=== PATIENT | female | born 1975 | race Caucasian/White ===

== ENCOUNTER → 2017-08-07 | Outpatient (CLI) | payer MEDICARE, MEDICAID, SELFPAY | PROVIDERS: Visit Provider Nurse Practitioner Family | DX: M54.2 Cervicalgia (principal) | CPT/HCPCS: 76536 ==

== ENCOUNTER → 2017-08-25 13:19 | Outpatient (CLI) | payer MEDICARE, MEDICAID, SELFPAY ==
--- NOTE | 2017-08-25 13:23 | US_ITS ---
US transvaginal HISTORY: ITS.REASON: LLQ pain ORDERING PHYSICIAN: MALIK Ramos PATIENT AGE: 42 years COMPARISON: None FINDINGS: The uterus measures 8.5 x 4.6 x 5.7 cm with a combined endometrial thickness of 8 mm. There is a 1.8 cm area of increased echogenicity along the posterior aspect of the body the uterus consistent with a fibroid. The left ovary measures 4 x 2.9 cm with heterogeneous echogenicity. The right ovary is 2 x 1.8 cm. No obvious ovarian masses. There is bilateral ovarian blood flow No cul-de-sac fluid evident. IMPRESSION: 1. 1.8 cm fibroid. 2. Mildly enlarged left ovary.
== END ==
PROVIDERS: PCP Physician Assistant; Visit Provider Physician Assistant
DX: R10.9 Unspecified abdominal pain (principal)
CPT/HCPCS: 76830

== ENCOUNTER → 2017-09-04 08:50 | Outpatient (CLI) | payer MEDICARE, MEDICAID, SELFPAY ==
[2017-09-04 09:05] LABS: Microscopic, Urine URINE MICROSCOPIC (MICROSCOPIC)
[2017-09-04 10:02] LABS: Basophils # 0.1 K/mm3 (0-0.2); Basophils % 0.9 % (0.1-2.0); Eosinophils # 0.2 K/mm3 (0.0-0.4); Eosinophils % 4.4 % (0.1-12.0); Hemoglobin 13.8 g/dL (12.2-16.2); Lymphocytes # 3.3 K/mm3 (0.7-4.5); Lymphocytes % 59.7 K/mm3 (10-50); Mean Corpuscular HGB Conc 32.8 g/dL (31.8-35.4); Mean Corpuscular Hemoglobin 31.2 pg (27.0-31.2); Mean Corpuscular Volume 95.1 fl (81-99); Mean Platelet Volume 7.8 fl (7.4-10.4); Monocytes # 0.5 K/mm3 (0.1-1.0); Monocytes % 8.4 % (1.7-9.3); Neutrophils # 1.5 K/mm3 (1.8-7.8); Neutrophils % 26.5 % (37.0-80.0); Platelet Count 314 K/mm3 (142-424); Red Blood Count 4.42 M/mm3 (4.20-5.40); Red Cell Distribution Width 13.2 % (11.5-17.5); White Blood Count 5.5 K/mm3 (4.8-10.8)
[2017-09-04 10:54] LABS: MANUAL DIFFERENTIAL MANUAL DIFFERENTIAL (MANUAL DIFF)
[2017-09-04 11:14] LABS: Appearance,Urine CLOUDY (Clear); Bilirubin,Urine Negative (Negative); Blood, Urine 3+ (Negative); Glucose,Urine (UA) Negative (Negative); Ketones,Urine Negative (Negative); Leukocyte Esterase,Urine Negative (Negative); Nitrate,Urine POSITIVE (Negative); Protein,Urine 2+ (Negative); Specific Gravity, Urine >= 1.030 (1.005-1.030)
[2017-09-04 11:17] LABS: Color,Urine Dark Yellow (Yellow)
[2017-09-04 11:27] LABS: Alanine Aminotransferase 16 U/L (12-78); Albumin Level 3.4 gm/dL (3.4-5.0); Albumin/Globulin Ratio 1.1 (1.1-1.8); Alkaline Phosphatase 88 U/L (46-116); Anion Gap 13.2 mEq/L (5-15); Aspartate Amino Transferase 15 U/L (15-37); Bilirubin,Total 0.2 mg/dL (0.2-1.0); Blood Urea Nitrogen 7 mg/dL (7-18); Calcium 8.4 mg/dL (8.5-10.1); Carbon Dioxide 27 mmol/L (21.0-32.0); Chloride 106 mmol/L (98-107); Creatinine,Serum 0.64 mg/dL (0.55-1.02); Estimated Glomerular Filt Rate 102 ml/min (>60); GFR (African American) 124 ML/MIN (>60); Globulin 3.2 gm/dl (1.3-3.2); Glucose 96 mg/dL (74-106); Potassium 4.2 mmoL/L (3.5-5.1); Sodium 142 mmol/L (136-145); Total Protein,Serum 6.6 gm/dL (6.4-8.2)
[2017-09-04 11:28] LABS: HCG,Quantitative 0 mIU/mL
[2017-09-04 12:15] LABS: Bacteria,Urine 2+ /lpf; Calcium Oxalate Crystals,Urine 1+ /lpf; RBC,Urine TNTC #/hpf (0-3); WBC,Urine Occasional #/hpf (0-3)
[2017-09-04 12:41] LABS: Eosinophils % 6 % (0-3); Lymphocytes % 49 % (10-50); Monocytes % 9 % (2-9); Neutrophils % 36 % (42-76); Platelet Estimate Normal; RBC Morphology Normal; Total Cells Counted 100
== END ==
PROVIDERS: PCP Nurse Practitioner Family; Visit Provider Obstetrics & Gynecology
DX: Z01.812 Encounter for preprocedural laboratory examination (principal); R10.2 Pelvic and perineal pain
CPT/HCPCS: 36415; 80053; 81001; 84702; 85007; 85025; 87086; 87088; 87186

== ENCOUNTER 2017-09-08 06:10 | Inpatient (IN) | payer MEDICARE, MEDICAID, SELFPAY ==
[2017-09-07 14:52] VITALS: BMI 24.3
[2017-09-08] VITALS (30 sets, daily range): BP systolic 98–146; BP diastolic 54–87; PULSE 54–86; RESP 12–36; TEMP 36.2–43; O2SAT 83–100; BMI 24.3
--- NOTE | 2017-09-08 07:59 | SUR.OPER ---
Addendum entered by Haylee Prieto RN 09/08/17 08:16: 0816-3 LAP SPONGES REMOVED PER MD AT THIS TIME Original Note: Addendum entered by Haylee Prieto RN 09/08/17 08:15: 0815-1 LAP SPONGE INSERTED INTO ABDOMEN AT THIS TIME PER MD Original Note: 0736-2 LAP SPONGES INSERTED INTO ABDOMEN AT THIS TIME PER MD.
--- NOTE | 2017-09-08 08:47 | HMH.OPNOTE ---
Date of procedure: 09/08/17 Pre-op Diagnosis:: 1. Pelvic pain. 2. Leiomyomata uteri. 3. Left ovarian cyst. Post-op diagnosis:: other (1. Pelvic pain.2. Leiomyomata uteri.3. Left ovarian cyst (endometrioma).4. Extensive pelvic adhesions.) Procedure performed:: 1. Total abdominal hysterectomy. 2. Extensive pelvic adhesiolysis. 3. Left salpingo-oophorectomy. Surgeon:: Rory Hong MD Hardboard Coating Machine Operator(s):: MEMO Chowdhury AUTO PARTS MANAGER:: Parker Camacho Anesthesia: GETGerman Estimated blood loss (mL): 300 Operative findings:: 1. Extensive pelvic adhesions. 2. Leiomyomata uteri. 3. Endometriosis, with left endometrioma. 4. Normal right adnexa and normal appendix. Operative note:: After the patient was prepped and draped in usual fashion and general anesthesia was administered, a low Pfannenstiel incision was made through the previous incision, and the fat and fascia was in the usual fashion, bleeders being clamped and coagulated along the way. The peritoneum was entered with Metzenbaum scissors, and extended above and below. The bowel was packed away, and omental adhesions to the upper abdominal wall were taken down with sharp and blunt dissection. A self-retaining [place] retractor with bladder blade was placed. The uterus was distorted, and adherent to the left pelvic sidewall. The bladder was well advanced on the anterior aspect of the uterus and densely adherent there. The right tube and ovary appeared normal, as did the appendix, which was long and retrocecal and remains in situ. Left tube and ovary were adherent to the pelvic sidewall and antibiotic implants were noted in the left adnexal area and broad ligament. The left ovary contained what appeared to be an endometrioma. The decision was made to remove the uterus and left adnexa and leave the right adnexa in situ. The round ligament on either side was Elton clamped, cut, and Elton suture with #1 Vicryl. The bladder peritoneum was painstakingly dissected free from the anterior uterus and protected with a bladder blade. The ovarian pedicle on the right was crossclamped and cut, thus leaving the right adnexa in situ. This pedicle was Elton sutured, and then free tied with #1 Vicryl. On the left side, the ovarian and infundibulopelvic ligaments were crossclamped and cut, thus removing the left adnexa. This pedicle was Elton suture, and then free tied with #1 Vicryl. The uterine vessels, and the cardinal and uterosacral ligaments were individually, bilaterally, Elton clamped, cut, and Elton sutured with #1 Vicryl. The vagina was entered anteriorly with a knife, and the specimen was removed with Paul scissors. Gee clamps were used to tent up the vaginal cuff, which was closed with a running locked suture of #1 Vicryl. The pelvis was reperitonealized with a running unlocked suture of 2-0 Vicryl, thus burying all the pedicles. Irrigation was carried out, and then Gelfoam was placed against the back of the vaginal cuff for further hemostasis. The peritoneum was grasped with 3 Flory clamps, and closed with a running simple locked suture of 0 Vicryl. The muscle was approximated with a running unlocked suture of 0 Vicryl. The fascia was closed with a running locked suture of #1 Vicryl, but Surgicel was placed between the muscle and fascia for persistent oozing. The subcutaneous fat and Tram's fascia were closed with a running unlocked suture of 2-0 Vicryl. The skin was closed with skin christoph, and appropriately dressed. The urine was clear and the Kenny catheter. The sponge and needle counts correct. The estimated blood loss was 300 cc. The patient tolerated the procedure well, and was taken to PACU in excellent condition. She will be admitted postoperatively. Condition: stable Disposition: floor Specimens:: Uterus and left adnexa. Complications:: None
--- NOTE | 2017-09-08 08:50 | P.OP_ITS ---
Date of procedure: 09/08/17 Pre-op Diagnosis:: 1. Pelvic pain. 2. Leiomyomata uteri. 3. Left ovarian cyst. Post-op diagnosis:: other (1. Pelvic pain.2. Leiomyomata uteri.3. Left ovarian cyst (endometrioma).4. Extensive pelvic adhesions.) Procedure performed:: 1. Total abdominal hysterectomy. 2. Extensive pelvic adhesiolysis. 3. Left salpingo-oophorectomy. Surgeon:: Rory Hong MD Surfacer Operator(s):: MEMO Chowdhury SANDBLASTER SUPERVISOR:: Parker Camacho Anesthesia: GETGerman Estimated blood loss (mL): 300 Operative findings:: 1. Extensive pelvic adhesions. 2. Leiomyomata uteri. 3. Endometriosis, with left endometrioma. 4. Normal right adnexa and normal appendix. Operative note:: After the patient was prepped and draped in usual fashion and general anesthesia was administered, a low Pfannenstiel incision was made through the previous incision, and the fat and fascia was in the usual fashion, bleeders being clamped and coagulated along the way. The peritoneum was entered with Metzenbaum scissors, and extended above and below. The bowel was packed away, and omental adhesions to the upper abdominal wall were taken down with sharp and blunt dissection. A self-retaining [place] retractor with bladder blade was placed. The uterus was distorted, and adherent to the left pelvic sidewall. The bladder was well advanced on the anterior aspect of the uterus and densely adherent there. The right tube and ovary appeared normal, as did the appendix, which was long and retrocecal and remains in situ. Left tube and ovary were adherent to the pelvic sidewall and antibiotic implants were noted in the left adnexal area and broad ligament. The left ovary contained what appeared to be an endometrioma. The decision was made to remove the uterus and left adnexa and leave the right adnexa in situ. The round ligament on either side was Elton clamped, cut, and Elton suture with #1 Vicryl. The bladder peritoneum was painstakingly dissected free from the anterior uterus and protected with a bladder blade. The ovarian pedicle on the right was crossclamped and cut, thus leaving the right adnexa in situ. This pedicle was Elton sutured, and then free tied with #1 Vicryl. On the left side , the ovarian and infundibulopelvic ligaments were crossclamped and cut, thus removing the left adnexa. This pedicle was Elton suture, and then free tied with #1 Vicryl. The uterine vessels, and the cardinal and uterosacral ligaments were individually, bilaterally, Elton clamped, cut, and Elton sutured with #1 Vicryl. The vagina was entered anteriorly with a knife, and the specimen was removed with Paul scissors. Gee clamps were used to tent up the vaginal cuff, which was closed with a running locked suture of #1 Vicryl. The pelvis was reperitonealized with a running unlocked suture of 2-0 Vicryl, thus burying all the pedicles. Irrigation was carried out, and then Gelfoam was placed against the back of the vaginal cuff for further hemostasis. The peritoneum was grasped with 3 Flory clamps, and closed with a running simple locked suture of 0 Vicryl. The muscle was approximated with a running unlocked suture of 0 Vicryl. The fascia was closed with a running locked suture of #1 Vicryl, but Surgicel was placed between the muscle and fascia for persistent oozing. The subcutaneous fat and Tram's fascia were closed with a running unlocked suture of 2-0 Vicryl. The skin was closed with skin christoph, and appropriately dressed. The urine was clear and the Kenny catheter. The sponge and needle counts correct. The estimated blood loss was 300 cc. The patient tolerated the procedure well, and was taken to PACU in excellent condition. Sh
--- NOTE | 2017-09-08 08:55 | HMH.ANESCL ---
[facility] Anesthesia Checklist - Patient Identification Patient Identification: Arm Band - Structural Data Admitted From: Home Planned Operative Procedure/s: catie, lso Consent for Planned Operative Procedure(s) Verified: Yes Verified Documents: Surgical Consent, History and Physical - NPO Status Verified Time NPO: 00:00 - Additional verifications Anesthesia Reactions: No - Airway Assessment C-Spine Mobility Assessed: Yes (mp2) TMJ Mobility Assessed: Yes Dentition: Edentulous - Neurological Assessment Level of Consciousness: Awake, Alert - Anesthesia Plan Anesthesia Risk discussed: Yes Anesthesia Plan: Verified ASA Class: III Anesthesia Type: General [facility] Anesthesia HX Medical History: Reports:: Asthma, Chronic Obstructive Pulmonary Disease (COPD), Gastroesophageal Reflux Disease(GERD) Denies:: Cancer, Diabetes Mellitus Type 1, Diabetes Mellitus Type 2, Internal Pacemaker, MRSA, Seizures Other Medical History: Reports: Other. Denies: Blood Transfusion Reaction Comment: currently taking suboxone Laterality Cases: Bilateral: Tonsillectomy Other Surgeries: Yes: (x2). No: Pacemaker Amputation: No Fractures: No *Family Hx:: Coronary Artery Disease, Diabetes
--- NOTE | 2017-09-08 08:58 | P.PN_ITS ---
[facility] Anesthesia Record Part I Intake, IV Amount: 1,800 Estimated blood loss (mL): 300 Urine output (mL): 100 Blood Pressure: 135/71 SaO2: 99 Pulse Rate: 69 Respiratory Rate: 16 Temperature: 97.3 F Patient is:: Drowsy, Stable Stable to PACU at:: 08:55
--- NOTE | 2017-09-08 10:15 | PC.NURSE ---
PT ARRIVES TO UNIT, ROOM 280 FROM PACU; PT IS ANXIOUS AND UNCOOPERATIVE; KEEPS STATING OVER AND OVER HER BELLY HURTS; STATES PAIN IS 10/10 AND CAN'T STAND IT; KEEPS STATING SOMETHING IS WRONG; RN PERFORMS ASSESSMENT ON PT AT THIS TIME; SAFETY MEASURES IN PLACE; IV IS PATENT; VITAL SIGNS TAKEN AT THIS TIME
--- NOTE | 2017-09-08 10:25 | PC.NURSE ---
RN NOTIFIES DR SANCHEZ FOR PT'S STATUS-VITAL SIGNS, PAIN 10/10, UNCOOPERATIVE AND ANXIOUS; MD STATES TO GIVE PT 4 MG OF DILAUDID IV Q3H PRN NOW AND IF PT IS STILL UNCOMFORTABLE AND BP IS STABLE PT MAY HAVE VALIUM 2.5 MG PO Q6H PRN; ORDER REPEATED AND VERIFIED BY RN
--- NOTE | 2017-09-08 11:00 | PC.NURSE ---
PT COMPLAINING OF NAUSEA AT THIS TIME; RN X2 AT BEDSIDE; PHENERGAN GIVEN AT THIS TIME
--- NOTE | 2017-09-08 11:30 | PC.NURSE ---
PT IS SLEEPING AT THIS TIME; OFFERS NO COMPLAINTS; O2 INITIATED AT THIS TIME; SAFETY MEASURES IN PLACE
--- NOTE | 2017-09-08 11:31 | P.CONPHA_ITS ---
[facility] Pharmacy VTE Monitoring - Patient Demographics Admission date: 09/08/17 Report Date: 09/08/17 Time: 11:31 Allergies/Adverse Reactions: Patient Allergies ciprofloxacin [From CIPRO] Allergy (Unknown, Verified 09/07/17 14:38) ITCHING,VOMITING Sulfa (Sulfonamide Antibiotics) [SULFA (SULFONAMIDE ANTIBIOTICS)] Allergy ( Unknown, Verified 09/07/17 14:38) ITCHING Height: 1.55 m Weight: 58.513 kg - VTE Risk Clinical Trial Participant: No - Prophylaxis VTE Prophylaxis Ordered?: Yes Types of VTE Prophylaxis: IPCS Knee High
--- NOTE | 2017-09-08 12:00 | PC.NURSE ---
PT STILL SLEEPING AT THIS TIME; FAMILY IS AT BEDSIDE; PT OFFERS NO COMPLAINTS; O2 REMAINS IN PLACE; SAFETY MEARSURES IN PLACE AT THIS TIME
--- NOTE | 2017-09-08 12:18 | SUR.PHASEI ---
PT'S DSG REMAINED C/D/I THROUGHOUT HER PACU STAY. ALTHOUGH PAIN MEDS WERE GIVEN, I WAS UNABLE TO MEET HER PAIN NEEDS. PT'S F/C WAS DRAINED OF 50 ML CLEAR YELLOW URINE. DETAILED REPORT GIVEN TO MARTA HARRIS RN IN OB INCLUDING ALL MEDS GIVEN AND DSG CONDITION.
--- NOTE | 2017-09-08 13:25 | PC.NURSE ---
PT CALLS OUT AT THIS TIME ASKING FOR PAIN MEDICATION; RN TAKES SCHEDULED TORADOL TO PT AT THIS TIME
[2017-09-08 14:11] LABS: Microscopic,Cath URINE MICROSCOPIC (MICROSCOPIC)
--- NOTE | 2017-09-08 14:15 | PC.NURSE ---
UPON ENTERING ROOM TO GIVE PT SCHEDULED MEDICATION, PT PULLS ARM OUT FROM UNDER THE COVER AND TELLS RN TO LOOK AT HER IV; PT HAD DISLODGED IV-FLUIDS AND BLOOD ALL OVER PT AND HEAT PAD; RN CALLS FOR 2ND RN TO COME HELP CHANGE PT'S GOWN AND HEAT PAD; IV ATTEMPT SUCCESSFUL AFTER 3RD ATTEMPT; SAFETY MEASURES IN PLACE; NO OTHER NEEDS OR CONCERNS VOICED;
[2017-09-08 14:28] LABS: Appearance,Urine/Cath CLEAR (Clear); Bilirubin,Cath Negative (Negative); Blood, Urine/Cath 1+ (Negative); Color,Urine/Cath YELLOW (Yellow); Glucose,Urine/Cath (UA) Negative (Negative); Ketones,Urine/Cath Negative (Negative); Leukocyte Esterase,Cath Negative (Negative); Nitrate,Cath POSITIVE (Negative); PH,Urine/Cath 6.5 (5.0-8.5); Protein,Urine/Cath Negative (Negative); Specific Gravity, Urine/Cath 1.015 (1.005-1.030); Urobilinogen,Cath 0.2 EU/dl (0.2)
[2017-09-08 14:40] LABS: Bacteria,Urine/Cath 3+ /lpf; RBC,Urine/Cath Occasional # /hpf (0-3); Squamous Epithelial Ur./Cath 20-50 #/hpf (0-5)
--- NOTE | 2017-09-08 14:45 | PC.NURSE ---
RN CHECKS ON PT AT THIS TIME; PT'S PAIN IS UNDER CONTROL AND PT IS SLEEPING AT THIS TIME; FAMILY IS AT BEDSIDE; SAFETY MEASURES IN PLACE; CALL LIGHT WITHIN REACH
--- NOTE | 2017-09-08 15:00 | PC.NURSE ---
PT IS SLEEPING AT THIS TIME; ALESSANDRA CRAIN-MD WILL BE NOTIFIED; PT OFFERS NO COMPLAINTS AT THIS TIME; FAMILY IS AT BEDSIDE; SAFETY MEASURES IN PLACE
--- NOTE | 2017-09-08 15:08 | PC.NURSE ---
RN NOTIFIED DR SANCHEZ OF PT'S MOST RECENT TEMP-99.8 (AXILLARY); DR SANCHEZ GIVES ORDERS TO GIVE PT 1 GM ANCEF NOW AND ANOTHER DOSE IN 12 HOURS; ORDER REPEATED AND VERIFIED BY RN
--- NOTE | 2017-09-08 16:00 | PC.NURSE ---
PT STATES HER PAIN IS 10/10 AND SEE IS HAVING SOME NAUSEA AND REQUESTS MEDICATION; FAMILY IS AT BEDSIDE; SAFETY MEASURES IN PLACE; CALL LIGHT WITHIN REACH
--- NOTE | 2017-09-08 16:30 | PC.NURSE ---
RN ASKED PT IF SHE WOULD RATHER HAVE MEDICATION FOR NAUSEA OR PAIN AT THIS TIME; PT REQUESTS NAUSEA MEDICATION AT THIS TIME; NO OTHER CONCERNS VOICED; CALL LIGHT WITHIN REACH; FAMILY AT BEDSIDE
--- NOTE | 2017-09-08 17:00 | PC.NURSE ---
DR SANCHEZ IN UNIT MAKING ROUNDS AT THIS TIME; GAVE RN VERBAL ORDER TO HAVE LAB DRAW H/H-ORDER REPEATED AND VERIFIED BY RN; ORDER SUBMITTED TO LAB
--- NOTE | 2017-09-08 17:00 | HMH.ACPN2 ---
Internal Medicine - PN: Subj *Date: 09/08/17 *Time: 17:00 Interval history: This is day of surgery. The patient is afebrile. Vital signs are stable. She has had some difficulty with pain management, but this is somewhat better time. Her urine output is good. Her abdomen is soft. Surgery has been explained to the patient. Impression: Stable. Exam Vital signs and Labs for Last 24 Hours: Temp Pulse Resp BP Pulse Ox 99.8 F H 60 12 141/80 98 09/08/17 15:01 09/08/17 15:01 09/08/17 15:01 09/08/17 15:01 09/08/17 15:01 Laboratory Results - last 24 hr 09/08/17 07:15: Urine Color Yellow, Urine Appearance Clear, Urine pH 6.5, Ur Specific [place] 1.015, Urine Protein Negative, Urine Glucose (UA) Negative, Urine Ketones Negative, Urine Blood 1+, Urine Nitrate Positive, Urine Bilirubin Negative, Urine Urobilinogen 0.2, Ur Leukocyte Esterase Negative, Urine RBC Occasional, Urine WBC 5-10, Ur Squamous Epith Cells 20-50, Urine Bacteria 3+ A I & O for Last 24 hours: Intake & Output 09/06/17 09/07/17 09/08/17 09/09/17 11:59 11:59 11:59 11:59 Intake Total 1800 / 1800 Output Total 100 / 100 Balance 1700 / 1700 Weight 129 lb
--- NOTE | 2017-09-08 17:33 | PC.NURSE ---
PT RESTING QUIETLY IN BED. NO NEEDS VOICED. RESP EASY AND UNLABORED. CALL LIGHT IN REACH. S.O. AT BEDSIDE.
[2017-09-08 18:51] LABS: Hematocrit 38.7 % (37.0-47.0); Hemoglobin 12.5 g/dL (12.2-16.2)
--- NOTE | 2017-09-08 19:10 | PC.NURSE ---
REPORT GIVEN TO German VILLA RN
--- NOTE | 2017-09-08 19:10 | PC.NURSE ---
Report received from Cat Rodgers RN
--- NOTE | 2017-09-08 20:15 | PC.NURSE ---
Pt resting comfortably at this time easily awakened by verbal stimuli upon wakening pt begins to cry out in pt. abodminal tenderness noted to umbilicus and RLQ AND LLQ, abdomen not distended. Bowel sounds noted to all four quads pt not passing flatus at this time. scheduled torodol given at this time and pt repositioned to right side lying position and warm blanket given for abdomen. fluids encouraged, no other needs voiced at this time call light within reach pt encouraged to ring for assistance. pt verbalizes understanding will continue to monitor pain at this time
[2017-09-09] VITALS (10 sets, daily range): BP systolic 122–151; BP diastolic 70–76; PULSE 61–95; RESP 16–20; TEMP 36.6–37.3; O2SAT 96–100
--- NOTE | 2017-09-09 00:20 | PC.NURSE ---
Dr Hong notified at this time d/t pt very anxious pain medication not effective pt remains rating pain 10/10 on pain scale pt continues to cry out. new orders received for percocet 10 mg every 6 hours. phone orders repeated and verified
--- NOTE | 2017-09-09 01:17 | PC.NURSE ---
Pt continues to rate pain 10/10 on pain scale. pt very anxious crying out. pt encouraged to take some deep breaths and repositioned at this time to right side lying position. scheduled torodol and prn valium given for anxiety at this time. this nurse remained at bedside x 10 mins. family at bedside will continue to monitor at this time
--- NOTE | 2017-09-09 02:30 | PC.NURSE ---
Pt asleep at this time. resp equal and unlabored no distress noted at this time. will continue to monitor
--- NOTE | 2017-09-09 04:20 | PC.NURSE ---
Pt lying in bed with eyes closed. pt easily awakened by verbal stimuli upon awakening pt states her pain is 7/10 and begins crying out. heating pad applied to abdomen and pt repositioned. pt states pain some better. lungs clear to auscultate, heart rate regular, bowel sounds x 4 quads, nonproductive cough noted. no edema noted. pt appears more comfortable at this time, abdominal dressing intact with small amount of old drainage noted. vss at this time. pinon catheter removed at this time pt tolerated well. no distress noted at this time will continue to monitor
--- NOTE | 2017-09-09 07:13 | PC.NURSE ---
report given to Jose Alfredo Mckinley RN
--- NOTE | 2017-09-09 08:09 | P.PN_ITS ---
Internal Medicine - PN: Subj *Date: 09/09/17 *Time: 08:07 Interval history: This is postop day #1. The patient is running a low-grade temp of 99.2. Her lungs demonstrate rales and rhonchi and she is producing greenish sputum, which we are now sending for culture. Her wound is clean. The rest of her vital signs are normal. She is complaining of significant pain throughout her abdomen , but there is no CVA tenderness, and she has been up to void since her Kenny has been removed. There is no calf tenderness. Wound is clean. The plan is to get a chest x-ray and abdominal/pelvic CT scan this morning, and to switch her to IV Demerol for pain management. Exam Vital signs and Labs for Last 24 Hours: Temp Pulse Resp BP Pulse Ox 98.9 F 64 20 139/70 99 09/09/17 04:20 09/09/17 04:20 09/09/17 04:20 09/09/17 04:20 09/09/17 04:20 Laboratory Results - last 24 hr 09/08/17 07:15: Urine Color Yellow, Urine Appearance Clear, Urine pH 6.5, Ur Specific [place] 1.015, Urine Protein Negative, Urine Glucose (UA) Negative, Urine Ketones Negative, Urine Blood 1+, Urine Nitrate Positive, Urine Bilirubin Negative, Urine Urobilinogen 0.2, Ur Leukocyte Esterase Negative, Urine RBC Occasional, Urine WBC 5-10, Ur Squamous Epith Cells 20-50, Urine Bacteria 3+ A 09/08/17 18:44: Hgb 12.5, Hct 38.7 I & O for Last 24 hours: Intake & Output 09/06/17 09/07/17 09/08/17 09/09/17 11:59 11:59 11:59 11:59 Intake Total 1800 / 1800 Output Total 100 / 100 3700 / 3700 Balance 1700 / 1700 -3700 / -3700 Weight 129 lb Microbiology Reports for the Last 24 Hours: Microbiology 09/08/17 07:15 Urine,Catheterized Urine Culture - Preliminary Gram Negative Rods
--- NOTE | 2017-09-09 08:16 | CT_ITS ---
CT abdomen pelvis wo con CLINICAL INDICATION: Postoperative abdominal pain, recent hysterectomy ITS.REASON: ab pain post op ORDERING PHYSICIAN: Rory Hong MD PATIENT AGE: 42 years COMPARISON: None TECHNIQUE: Axial images obtained with sagittal and coronal reformats. PROCEDURE: Oral Contrast: None IV Contrast: None . FINDINGS: There are atelectatic changes in the right lung base. There is a pneumoperitoneum which is presumed to be postsurgical. The liver, spleen, pancreas and adrenal glands have an unremarkable unenhanced CT appearance. There is some increased density within the posterior aspect of the gallbladder which may be due to sludge.. There is minimal ectasia of both renal collecting systems which could be due to patient's hydration status. No obstructing ureteral calculi are evident. There is an air-fluid level present within the urinary bladder and may be due to recent catheterization. There are gas-filled loops of large and small bowel with a mild amount colonic feces in the colon. No definite obstruction. No evidence of appendicitis or diverticulitis. Small amount of free fluid in the pelvis with some heterogeneous density in the right adnexa containing some gas bubbles and could be related to postsurgical changes. There are postsurgical changes of the intra-abdominal wall with subcutaneous gas and skin clips. No acute bony anomalies. IMPRESSION: 1. Postsurgical changes from recent hysterectomy with pneumoperitoneum and postsurgical changes of the intra-abdominal wall. Small amount fluid density is present within the pelvis. No large hemoperitoneum. Interspersed gas and soft tissue density noted in the right adnexa consistent with surgical change. 2. Right lower lobe atelectasis. 3. Gas-filled small and large bowel which may be due to mild ileus with a mild amount retained colonic feces
--- NOTE | 2017-09-09 08:17 | XR_ITS ---
XR chest 2V HISTORY: ITS.REASON: productive cough ORDERING PHYSICIAN: Rory Hong MD PATIENT AGE: 42 years COMPARISON: None available FINDINGS: The cardiomediastinal silhouette and pulmonary vascularity are within normal limits. There are mild atelectatic changes in the right lung base medially. No lobar consolidation or collapse. No effusions. Pneumoperitoneum is present present to be postsurgical. No acute bony anomalies. IMPRESSION: 1. Mild right basilar atelectasis. 2. Pneumoperitoneum which is presumed postsurgical
[2017-09-09 09:09] LABS: Blood Urea Nitrogen 8 mg/dL (7-18); Creatinine Clearance Estimated 87 mL/min (0-300); Creatinine,Serum 0.79 mg/dL (0.55-1.02); Estimated Glomerular Filt Rate 80 ml/min (>60); GFR (African American) 97 ML/MIN (>60)
--- NOTE | 2017-09-09 10:55 | PC.NURSE ---
Spoke with ; reported CT, Xray noted air and gas; ok to advance to full liquid diet.
--- NOTE | 2017-09-09 18:18 | PC.NURSE ---
1800 pt requested to be off iv to walk around unit , went back in to check on pt not on unit, called [facility] supervisor reported pt off unit.
--- NOTE | 2017-09-09 18:23 | PC.NURSE ---
Shira and supervisor paint department found pt out from smoking, they brought her back in wheelchair, she reported her pain not bad now Instructed pt to stay on unit. Pt verbalized understanding
--- NOTE | 2017-09-09 19:05 | PC.NURSE ---
Report received from Jose Alfredo Mckinley RN
--- NOTE | 2017-09-09 19:35 | PC.NURSE ---
IV in Left hand infiltrated at this time, IV was removed with tip intact and skin covered with 2x2 and coban, pt tolerated well. New IV started to Right AC 22g x 2 attempts. arm board applied per pt request. pt tolerated IV insertion well. no distress noted at this time
[2017-09-10 05:19] VITALS: BP 124/80; PULSE 68; RESP 17; TEMP 36.6; O2SAT 96
--- NOTE | 2017-09-10 05:21 | PC.NURSE ---
Addendum entered by Valencia Hammond RN 09/10/17 05:25: late entry for 0420 Original Note: Pt sitting up in bed at this time. pt alert and oriented and able to make needs known. pt c/o pain 8/10 in abdomen more in RUQ, pt states she is not passing gas encouraged to ambulate pt states i will in a little while BS hyperactive x 4 quads, wheezing noted to RUL of lung otherwise clear pt encouraged to use incentive spirometer every hour when awake and cough when possible Pt can get IS to 750. abdominal dressing changed at this time no s/s or infection noted, christoph intact, new dressing applied of telfa and tegaderm, pt instructed on cleaning of incision and dressing change pt verbalized understanding. pt tolerated the dressing change well at this time. ice water provided per request. mo other needs voiced at this time will continue to monitor
--- NOTE | 2017-09-10 06:22 | PC.NURSE ---
Dr Hong at bedside at this time new orders received for soft diet at this time
--- NOTE | 2017-09-10 06:24 | HMH.ACPN2 ---
Internal Medicine - PN: Subj *Date: 09/10/17 *Time: 06:24 Interval history: This is postop day #2. The patient is afebrile. Her vital signs are stable. Wound clean. Abdomen soft. She is passing flatus. She is ambulating well. And her urine output is good. Plan is to advance her diet and transition to oral pain medication. Exam Vital signs and Labs for Last 24 Hours: Temp Pulse Resp BP Pulse Ox 97.9 F 68 17 124/80 96 09/10/17 05:19 09/10/17 05:19 09/10/17 05:19 09/10/17 05:19 09/10/17 05:19 Laboratory Results - last 24 hr 09/09/17 08:50: BUN 8, Creatinine 0.79, Estimated Creat Clear 87, Estimated GFR 80, Est GFR ( Amer) 97 I & O for Last 24 hours: Intake & Output 09/07/17 09/08/17 09/09/17 09/10/17 11:59 11:59 11:59 11:59 Intake Total 1800 / 1800 50 / 50 1200 / 1200 Output Total 100 / 100 3700 / 3700 Balance 1700 / 1700 -3650 / -3650 1200 / 1200 Weight 129 lb Microbiology Reports for the Last 24 Hours: Microbiology 09/08/17 07:15 Urine,Catheterized Urine Culture - Preliminary Gram Negative Rods 09/09/17 09:30 Sputum - Expectorated Sputum Gram Stain - Final
--- NOTE | 2017-09-10 06:29 | PC.NURSE ---
Pt ambulated in unit without difficulty at this time no distress noted
--- NOTE | 2017-09-10 07:02 | PC.NURSE ---
Report given to Doc Joseph RN
--- NOTE | 2017-09-10 07:10 | PC.NURSE ---
report received from césar radford rn
--- NOTE | 2017-09-10 08:10 | PC.NURSE ---
DR. SANCHEZ NOTIFIED OF E. COLI/ESBL + U/A CULTURE. ORDERS FOR CATH SPECIMEN. ORDERS TO CHANGE PAIN MEDS TO PO AT THIS TIME. PERCOCET 10/325MG PO Q 4 HOURS PRN MODERATE TO SEVERE PAIN AND CHANGE TORADOL 10 MG PO Q 6 HOURS SCHEDULED. R/V
[2017-09-10 08:15] VITALS: BP 128/62; PULSE 68; RESP 20; TEMP 36.4; O2SAT 97
[2017-09-10 09:02] LABS: Appearance,Urine CLEAR (Clear); Bilirubin,Urine Negative (Negative); Blood, Urine TRACE-L (Negative); Color,Urine YELLOW (Yellow); Glucose,Urine (UA) Negative (Negative); Ketones,Urine Negative (Negative); Leukocyte Esterase,Urine Negative (Negative); Microscopic, Urine URINE MICROSCOPIC (MICROSCOPIC); Nitrate,Urine Negative (Negative); Protein,Urine Negative (Negative); Specific Gravity, Urine <= 1.005 (1.005-1.030); Urobilinogen,Urine 0.2 EU/dl (0.2)
[2017-09-10 09:14] LABS: Bacteria,Urine 1+ /lpf; Mucus,Urine 1+ /lpf; RBC,Urine Occasional #/hpf (0-3); WBC,Urine Occasional #/hpf (0-3)
--- NOTE | 2017-09-10 09:15 | PC.NURSE ---
PT RESTING IN BED WITHOUT NEEDS OR CONCERNS AT THIS TIME. CALL LIGHT WITHIN REACH.
--- NOTE | 2017-09-10 10:49 | PC.NURSE ---
PT AMBULATING IN [place] WITHOUT DIFFICULTY AT THIS TIME
--- NOTE | 2017-09-10 11:30 | PC.NURSE ---
PT SITTING UP IN BED, REQUESTS SIMETHICONE FOR GAS DISCOMFORT, GIVEN. PT SITTING UP IN BED. CALL LIGHT WITHIN REACH. NO FURTHER NEEDS AT THIS TIME
[2017-09-10 12:15] VITALS: BP 133/56; PULSE 60; RESP 20; TEMP 36.6; O2SAT 98
--- NOTE | 2017-09-10 12:24 | PC.NURSE ---
SOFT DIET LUNCH TRAY SET-UP FOR PT, NO NEEDS AT THIS TIME
--- NOTE | 2017-09-10 13:10 | PC.NURSE ---
PT AMBULATING IN [place] WITHOUT DIFFICULTY. RETURNED TO BED. CALL LIGHT WITHIN REACH
--- NOTE | 2017-09-10 15:00 | PC.NURSE ---
PT AMBULATING IN [place] WITH VISITOR, LAUGHING. AMBULATING WELL, NO NEEDS OR CONCERNS VOICED
--- NOTE | 2017-09-10 15:25 | PC.NURSE ---
DR. SANCHEZ AT BEDSIDE TO SEE PT, NO NEW ORDERS
--- NOTE | 2017-09-10 15:29 | HMH.ACPN2 ---
Internal Medicine - PN: Subj *Date: 09/10/17 *Time: 15:29 Interval history: Patient is afebrile. Her vital signs are stable. She is eating and ambulating well. Passing minimal amount of flatus. She still having some gas pains. Her urine culture came back E. coli, but sensitive to the Ancef that she had been on. We have sent off a follow-up culture. Impression: Stable. Exam Vital signs and Labs for Last 24 Hours: Temp Pulse Resp BP Pulse Ox 97.8 F 60 20 133/56 98 09/10/17 12:15 09/10/17 12:15 09/10/17 12:15 09/10/17 12:15 09/10/17 12:15 Laboratory Results - last 24 hr 09/10/17 08:45: Urine Color Yellow, Urine Appearance Clear, Urine pH 7.0, Ur Specific [place] <= 1.005, Urine Protein Negative, Urine Glucose (UA) Negative, Urine Ketones Negative, Urine Blood Trace-l, Urine Nitrate Negative, Urine Bilirubin Negative, Urine Urobilinogen 0.2, Ur Leukocyte Esterase Negative, Urine RBC Occasional, Urine WBC Occasional, Ur Squamous Epith Cells 5-10, Urine Bacteria 1+, Urine Mucus 1+ I & O for Last 24 hours: Intake & Output 09/08/17 09/09/17 09/10/17 09/11/17 11:59 11:59 11:59 11:59 Intake Total 1800 / 1800 50 / 50 1440 / 1440 Output Total 100 / 100 3700 / 3700 Balance 1700 / 1700 -3650 / -3650 1440 / 1440 Weight 129 lb Microbiology Reports for the Last 24 Hours: Microbiology 09/09/17 09:30 Sputum - Expectorated Sputum Gram Stain - Final 09/08/17 07:15 Urine,Catheterized Urine Culture - Final Escherichia coli
[2017-09-10 16:00] VITALS: BP 136/76; PULSE 62; RESP 20; TEMP 37.1; O2SAT 99
--- NOTE | 2017-09-10 16:05 | PC.NURSE ---
PT HAS RESTED WELL THIS SHIFT, AMBULATED IN [place] WITHOUT DIFFICULTY. SKIN W/D/I. LTV INCISION C/D/I. NO VAGINAL BLEEDING. VITAL SIGNS STABLE, AFEBRILE. NO EDEMA. LUNGS SOUNDS WITH WHEEZES THROUGHOUT. NO CHANGE SINCE AM ASSESSMENT. REINFORCED USING INCENTIVE SPIROMETER. V/U AND DOES SO AT ABOUT 750-1000. IV SITE. PT PASSING FLATUS AND VOIDING WITHOUT DIFFICULTY
--- NOTE | 2017-09-10 17:00 | PC.NURSE ---
PT UP TO SHOWER, TOLERATED WELL. GOWN AND LINENS CHANGED. PT WITHOUT NEEDS OR CONCERNS
--- NOTE | 2017-09-10 18:32 | PC.NURSE ---
PT RESTING IN BED WATCHING TV, CALL LIGHT WITHIN REACH. NO NEEDS OR CONCERNS
--- NOTE | 2017-09-10 18:57 | PC.NURSE ---
REPORT GIVEN TO Negra SAWANT RN
--- NOTE | 2017-09-10 19:20 | PC.NURSE ---
REPORT RECEIVED FROM BRYSON STOLL.
--- NOTE | 2017-09-10 20:30 | PC.NURSE ---
PT AMBULATING IN HALLWAY THIS TIME WITH STANDBY ASSIST X1. NO PROBLEMS NOTED WITH AMBULATION.
--- NOTE | 2017-09-10 21:15 | PC.NURSE ---
MEDICATED WITH PERCOCET 10/325 PO PER REQUEST FOR PAIN 8/10 ON PAIN SCALE.
[2017-09-10 21:27] VITALS: RESP 20; O2SAT 96
--- NOTE | 2017-09-10 21:45 | PC.NURSE ---
PT REPORTS RELIEF AFTER TAKING PERCOCET FOR PAIN. RATES PAIN AT 4 OR 5 AT THIS TIME. INSTRUCTED PT TO NOTIFY NURSE IF PAIN CONTROL DOES NOT CONTINUE TO IMPROVE. VERBALIZED UNDERSTANDING.
[2017-09-10 21:49] VITALS: BP 145/74; PULSE 56; RESP 20; TEMP 36.9
--- NOTE | 2017-09-10 22:10 | PC.NURSE ---
SCHEDULED TORADOL 10MG PO GIVEN FOR PAIN. AT THIS TIME, PT RATES PAIN AT 4/10 ON PAIN SCALE.
--- NOTE | 2017-09-11 03:20 | PC.NURSE ---
MEDICATED WITH PERCOCET 10/325 MG PO FOR PAIN 8/10 ON PAIN SCALE AND SIMETHICONE 160MG PO FOR GAS PER REQUEST.
[2017-09-11 03:37] VITALS: BP 122/68; PULSE 18; PULSE 68; RESP 18; TEMP 36.7
--- NOTE | 2017-09-11 03:40 | PC.NURSE ---
PT HAS RESTED WELL THROUGHOUT THE NIGHT. SIG OTHER HAS REMAINED AT BS ATTENTIVE TO PT'S NEEDS. AMBULATING IN ROOM AND HALLWAY WITHOUT DIFFICULTY. VOIDING FREELY / WELL. HAS HAD BM X1. +FLATUS. TOLERATING SOFT DIET PO's WELL. LUNGS WHEEZY BILAT AND THROUGHOUT R/T HEAVY SMOKING..USES INHALERS PRN AT HOME. NORMALLY TAKES SUBUTEX 8MG PO BID AT HOME DAILY. HAS HAD SUFFICIENT PAIN CONTROL WITH PERCOCET 10/325 PO Q 6HRS PRN AND TORADOL 10MG PO Q6HRS SCHEDULED. LTV INCISION DRESSING REMAINS CLEAN, DRY AND INTACT. ORALLY INSTRUCTED PT ON CARE OF INCISION ONCED DISCHARGED. VERBALIZED UNDERSTANDING. ALSO REINFORCED IMPORTANCE OF USING INCENTIVE SPIROMETER, DARLING SINCE SHE IS A HEAVY SMOKER. PT VERBALIZED UNDERSTANDING WELL. PLANS TO BE DISCHARGED HOME LATER TODAY WITH SCHEDULED FOLLOW APPOINTMENT IN OFFICE.
--- NOTE | 2017-09-11 04:07 | PC.NURSE ---
PT REPORTS PAIN RELIEF FROM PERCOCET 10/. NOW RATES PAIN AT 4/10 ON PAIN SCALE.
--- NOTE | 2017-09-11 05:41 | PC.NURSE ---
MEDICATED WITH SCHEDULED TORADOL 10MG PO... PT WAS ASLEEP UPON ENTERING ROOM. DENIES ANY NEEDS AT THIS TIME.
--- NOTE | 2017-09-11 06:18 | HMH.ACPN2 ---
Internal Medicine - PN: Subj *Date: 09/11/17 *Time: 06:18 Interval history: This is postop day #3. The patient is afebrile. Vital signs stable. Wound clean. Abdomen soft. She is eating and ambulating, and has had a bowel movement. Her follow-up urinary culture is still pending. She will be discharged today. Exam Vital signs and Labs for Last 24 Hours: Temp Pulse Resp BP Pulse Ox 98.0 F 18 L 18 122/68 96 09/11/17 03:37 09/11/17 03:37 09/11/17 03:37 09/11/17 03:37 09/10/17 21:27 Laboratory Results - last 24 hr 09/10/17 08:45: Urine Color Yellow, Urine Appearance Clear, Urine pH 7.0, Ur Specific [place] <= 1.005, Urine Protein Negative, Urine Glucose (UA) Negative, Urine Ketones Negative, Urine Blood Trace-l, Urine Nitrate Negative, Urine Bilirubin Negative, Urine Urobilinogen 0.2, Ur Leukocyte Esterase Negative, Urine RBC Occasional, Urine WBC Occasional, Ur Squamous Epith Cells 5-10, Urine Bacteria 1+, Urine Mucus 1+ I & O for Last 24 hours: Intake & Output 09/08/17 09/09/17 09/10/17 09/11/17 11:59 11:59 11:59 11:59 Intake Total 1800 / 1800 50 / 50 1440 / 1440 Output Total 100 / 100 3700 / 3700 Balance 1700 / 1700 -3650 / -3650 1440 / 1440 Weight 129 lb Microbiology Reports for the Last 24 Hours: Microbiology 09/09/17 09:30 Sputum - Expectorated Sputum Gram Stain - Final 09/08/17 07:15 Urine,Catheterized Urine Culture - Final Escherichia coli
--- NOTE | 2017-09-11 06:21 | PC.NURSE ---
DR. SANCHEZ AT TO SEE. PT. REVIEWING URINE CULTURE RESULTS/ ORDERS. V/O RECEIVED TO NOT AWAIT RESULTS OF 2ND URINE CULTURE THAT WAS ORDERED ON 09/10/17.... ORDER REPEATED AND VERIFIED.
--- NOTE | 2017-09-11 06:22 | HMH.DCSUM ---
General - General Admission date: 09/08/17 Discharge date: 09/11/17 (This 42-year-old white female was admitted for definitive treatment of pelvic pain, dysfunctional uterine bleeding, leiomyomata uteri, and a left adnexal mass. On the date of admission, she was taken to the operating room, where she underwent a total abdominal hysterectomy and left salpingo-oophorectomy, with extensive adhesiolysis. Her urine culture showed E. coli, and she was treated with intravenous antibiotics. A follow-up culture report is pending. She had some initial issues with pain management that seems to be under control now. She is eating and ambulating, and has had a bowel movement. Her hemoglobin is 12.5 g. She is a smoker, but refuses smoking cessation patches. She is discharged home on the third postoperative day on Percocet 7.5/325 (#30), 1 p.o. every 6 hours as needed pain. She is given appropriate instructions as to diet, exercise, and wound care (her christoph have been removed and replaced with Steri-Strips), and she is to return to the office 2 weeks.) Objective Vital signs: Temp Pulse Resp BP Pulse Ox 98.0 F 18 L 18 122/68 96 09/11/17 03:37 09/11/17 03:37 09/11/17 03:37 09/11/17 03:37 09/10/17 21:27 Results Labs on day of discharge: Labs from last 24 hours 09/10/17 08:45 Urine Color Yellow Urine Appearance Clear Urine pH 7.0 Ur Specific [place] <= 1.005 Urine Protein Negative Urine Glucose (UA) Negative Urine Ketones Negative Urine Blood Trace-l Urine Nitrate Negative Urine Bilirubin Negative Urine Urobilinogen 0.2 Ur Leukocyte Esterase Negative Urine RBC Occasional Urine WBC Occasional Ur Squamous Epith Cells 5-10 Urine Bacteria 1+ Urine Mucus 1+ Meds Home Medications Medication Instructions Recorded Confirmed Type albuterol sulfate 2.5 mg/3 mL 2.5 mg INHALATION QID PRN ml 08/25/17 09/08/17 History (0.083 %) solution for nebulization buprenorphine 8 mg-naloxone 2 mg 1 tab SUBLINGUAL BID tab 08/25/17 09/08/17 History sublingual tablet Gabapentin [Neurontin 800mg Tab] 800 mg PO TID 09/07/17 09/08/17 History Allergies Allergy/AdvReac Type Severity Reaction Status Date / Time ciprofloxacin [From CIPRO] Allergy Unknown ITCHING,VOM Verified 09/07/17 14:38 ITING Sulfa (Sulfonamide Allergy Unknown ITCHING Verified 09/07/17 14:38 Antibiotics) [SULFA (SULFONAMIDE ANTIBIOTICS)] Discharge Plan - Patient Discharge Instructions - Follow up Plan Home Medications: Home Medications Medication Instructions Recorded Confirmed Type albuterol sulfate 2.5 mg/3 mL 2.5 mg INHALATION QID PRN ml 08/25/17 09/08/17 History (0.083 %) solution for nebulization buprenorphine 8 mg-naloxone 2 mg 1 tab SUBLINGUAL BID tab 08/25/17 09/08/17 History sublingual tablet Gabapentin [Neurontin 800mg Tab] 800 mg PO TID 09/07/17 09/08/17 History Prescriptions/Medication Reconciliation: No Action albuterol sulfate 2.5 mg/3 mL (0.083 %) solution for nebulization 2.5 mg INHALATION QID PRN ml PRN Reason: breathing buprenorphine 8 mg-naloxone 2 mg sublingual tablet 1 tab SUBLINGUAL BID tab Gabapentin [Neurontin 800mg Tab] 800 mg PO TID
--- NOTE | 2017-09-11 06:54 | PC.NURSE ---
REPORT GIVEN TO BRYSON TSE.
--- NOTE | 2017-09-11 07:00 | PC.NURSE ---
RECEIVED REPORT FROM Surendra SAWANT RN
[2017-09-11 07:21] VITALS: BP 114/62; PULSE 64; RESP 20; TEMP 36.7; O2SAT 95
--- NOTE | 2017-09-11 07:58 | PC.NURSE ---
DR SANCHEZ CALLED HOME [facility]. STATED FOR PT TO CONTINUE TO TAKE ALBUTEROL SULFATE 2.5MG INHALATION QID PRN NEEDED. BUPRENORPHINE 8MG 1 TABLET SUBLINGUAL BID, AND NEURONTIN 800MG PO TID. R/V
--- NOTE | 2017-09-11 08:00 | PC.NURSE ---
PT HAS A LOW TRANSVERSE INCISION WITH MARISOL INTACT. INCISION WELL APPROXIMATED WITH MARISOL INTACT. INCISION CLEANED WITH 1/2 STERILE WATER AND 1/2 PEROXIDE. MARISOL REMOVED AND STERI STRIPS APPLIED. PT TOLERATED WELL. PT EDUCATED ON SURGICAL SITE INFECTIONS. PT V/U.
== END 2017-09-11 08:30 | disposition home or self-care (01) | DRG 743 ==
LOC: 2ND 06:14 → OB 08:55
PROVIDERS: Admitting Provider Obstetrics & Gynecology; PCP Nurse Practitioner Family; Visit Provider Obstetrics & Gynecology
PROC: 0UT90ZZ Resection of Uterus, Open Approach (ICD-10-PCS; CPT 58150; principal; 2017-09-08 07:30)
DX: N93.8 Other specified abnormal uterine and vaginal bleeding (principal); D25.9 Leiomyoma of uterus, unspecified; R10.2 Pelvic and perineal pain; N83.202 Unspecified ovarian cyst, left side
CPT/HCPCS: 58150; 36415; 71046; 74176; 81001; 82565; 84520; 85014; 85018; 87070; 87086; 87088; 87186; 87205; 88307; 94640; 96372; 96374; J0131; J2405

== ENCOUNTER → 2017-10-07 14:55 | Outpatient (REF) | payer MEDICARE, MEDICAID, SELFPAY ==
[2017-10-07 19:25] LABS: Amphetamine/Metha Screen,Urine Negative ng/mL (<1000); Barbiturates Screen,Urine Negative ng/mL (<200); Benzodiazepines Screen,Urine Negative ng/mL (200); Cannabinoid Screen,Urine Negative ng/mL (<50); Cocaine Screen,Urine Negative ng/g (<300); Methadone Screen,Urine Negative ng/mL (<300); Opiate Screen,Urine Negative ng/mL (<300); Phencyclidine Screen,Urine Negative ng/mL (<25)
== END ==
LOC: LAB 14:55
PROVIDERS: Visit Provider Nurse Practitioner Family
DX: Z79.899 Other long term (current) drug therapy (principal)
CPT/HCPCS: 80305

== ENCOUNTER → 2017-10-12 16:35 | Outpatient (REF) | payer MEDICARE, MEDICAID, SELFPAY | LOC: LAB 16:35 | PROVIDERS: Visit Provider Obstetrics & Gynecology | DX: Z48.89 Encounter for other specified surgical aftercare (principal) | CPT/HCPCS: 87070; 87077; 87186; 87205 ==

== ENCOUNTER → 2017-10-28 17:37 | Outpatient (CLI) | payer MEDICARE, MEDICAID, SELFPAY ==
[2017-10-28 18:56] LABS: Alanine Aminotransferase 17 U/L (12-78); Albumin Level 3.9 gm/dL (3.4-5.0); Albumin/Globulin Ratio 0.8 (1.1-1.8); Alkaline Phosphatase 111 U/L (46-116); Anion Gap 10.9 mEq/L (5-15); Aspartate Amino Transferase 15 U/L (15-37); Bilirubin,Total 0.1 mg/dL (0.2-1.0); Blood Urea Nitrogen 6 mg/dL (7-18); C-Reactive Protein 1.4 mg/L (0.0-0.9); Carbon Dioxide 30 mmol/L (21.0-32.0); Chloride 104 mmol/L (98-107); Creatinine,Serum 0.75 mg/dL (0.55-1.02); Estimated Glomerular Filt Rate 85 ml/min (>60); Free T4 (Free Thyroxine) 1.19 ng/dl (0.76-1.46); GFR (African American) 103 ML/MIN (>60); Globulin 4.7 gm/dl (1.3-3.2); Glucose 112 mg/dL (74-106); Potassium 3.9 mmoL/L (3.5-5.1); Sodium 141 mmol/L (136-145); Thyroid Stimulating Hormone 1.04 uIU/ml (0.358-3.740); Total Protein,Serum 8.6 gm/dL (6.4-8.2)
[2017-10-28 19:07] LABS: Monoscreen (Rapid) Negative (Negative)
[2017-10-28 20:34] LABS: Basophils % 0.7 % (0.1-2.0); Eosinophils # 0.1 K/mm3 (0.0-0.4); Eosinophils % 1.8 % (0.1-12.0); Hematocrit 47.6 % (37.0-47.0); Hemoglobin 15.6 g/dL (12.2-16.2); Lymphocytes # 2.6 K/mm3 (0.7-4.5); Lymphocytes % 57.4 K/mm3 (10-50); Mean Corpuscular HGB Conc 32.7 g/dL (31.8-35.4); Mean Corpuscular Volume 94.8 fl (81-99); Mean Platelet Volume 8.2 fl (7.4-10.4); Monocytes # 0.3 K/mm3 (0.1-1.0); Monocytes % 6.5 % (1.7-9.3); Neutrophils # 1.5 K/mm3 (1.8-7.8); Neutrophils % 33.5 % (37.0-80.0); Platelet Count 353 K/mm3 (142-424); Red Blood Count 5.02 M/mm3 (4.20-5.40); Red Cell Distribution Width 13.1 % (11.5-17.5); White Blood Count 4.5 K/mm3 (4.8-10.8)
[2017-10-28 20:35] LABS: MANUAL DIFFERENTIAL MANUAL DIFFERENTIAL (MANUAL DIFF)
[2017-10-28 23:09] LABS: Anisocytosis 1+; Eosinophils % 2 % (0-3); Lymphocytes % 56 % (10-50); Monocytes % 1 % (2-9); Neutrophils % 41 % (42-76); Platelet Estimate Normal; Total Cells Counted 100
== END ==
PROVIDERS: PCP Nurse Practitioner Family; Visit Provider Nurse Practitioner Family
DX: R53.83 Other fatigue (principal); R05 Cough
CPT/HCPCS: 36415; 80053; 84439; 84443; 85007; 85025; 86140; 86318

== ENCOUNTER → 2017-11-12 15:38 | Outpatient (CLI) | payer MEDICARE, MEDICAID, SELFPAY ==
[2017-11-12 16:00] LABS: Basophils % 0.3 % (0.1-2.0); Eosinophils # 0.1 K/mm3 (0.0-0.4); Eosinophils % 1.7 % (0.1-12.0); Hematocrit 46.2 % (37.0-47.0); Hemoglobin 14.8 g/dL (12.2-16.2); Lymphocytes # 3.3 K/mm3 (0.7-4.5); Lymphocytes % 46.5 K/mm3 (10-50); Mean Corpuscular Hemoglobin 30.6 pg (27.0-31.2); Mean Corpuscular Volume 95.4 fl (81-99); Mean Platelet Volume 7.6 fl (7.4-10.4); Monocytes # 0.4 K/mm3 (0.1-1.0); Monocytes % 5.7 % (1.7-9.3); Neutrophils # 3.3 K/mm3 (1.8-7.8); Neutrophils % 45.8 % (37.0-80.0); Platelet Count 390 K/mm3 (142-424); Red Blood Count 4.84 M/mm3 (4.20-5.40); Red Cell Distribution Width 13.7 % (11.5-17.5); White Blood Count 7.2 K/mm3 (4.8-10.8)
== END ==
PROVIDERS: Visit Provider Nurse Practitioner Family
DX: D72.819 Decreased white blood cell count, unspecified (principal)
CPT/HCPCS: 36415; 85025

== ENCOUNTER → 2018-01-29 09:57 | Outpatient (CLI) | payer MEDICARE, MEDICAID, SELFPAY ==
[2018-01-29 13:51] LABS: Amphetamine/Metha Screen,Urine Negative ng/mL (<1000); Barbiturates Screen,Urine Negative ng/mL (<200); Benzodiazepines Screen,Urine Negative ng/mL (200); Cannabinoid Screen,Urine Negative ng/mL (<50); Cocaine Screen,Urine Negative ng/g (<300); Methadone Screen,Urine Negative ng/mL (<300); Opiate Screen,Urine Negative ng/mL (<300); Phencyclidine Screen,Urine Negative ng/mL (<25)
== END ==
PROVIDERS: Visit Provider Nurse Practitioner Family
DX: Z79.899 Other long term (current) drug therapy (principal)
CPT/HCPCS: 80305

== ENCOUNTER → 2018-03-25 13:23 | Outpatient (REF) | payer MEDICARE, MEDICAID, SELFPAY ==
[2018-03-25 20:45] LABS: Amphetamine/Metha Screen,Urine Negative ng/mL (<1000); Barbiturates Screen,Urine Negative ng/mL (<200); Benzodiazepines Screen,Urine Negative ng/mL (<200); Cannabinoid Screen,Urine Negative ng/mL (<50); Cocaine Screen,Urine Negative ng/mL (<300); Methadone Screen,Urine Negative ng/mL (<300); Opiate Screen,Urine Negative ng/mL (<300); Phencyclidine Screen,Urine Negative ng/mL (<25)
== END ==
LOC: LAB 13:23
PROVIDERS: Visit Provider Nurse Practitioner Family
DX: Z79.899 Other long term (current) drug therapy (principal)
CPT/HCPCS: 80305

== ENCOUNTER → 2018-05-07 09:38 | Outpatient (CLI) | payer MEDICARE, MEDICAID, SELFPAY ==
--- NOTE | 2018-05-07 10:15 | US_ITS ---
US gallbladder HISTORY: Right upper quadrant pain with nausea ITS.REASON: rt upper quad pain ORDERING PHYSICIAN: Marcelle Padilla PATIENT AGE: 43 years Comparison: None FINDINGS: PANCREAS: Unremarkable. No obvious mass or abnormal fluid collection. No ductal dilatation LIVER: No focal liver lesions demonstrated. Homogeneous echogenicity. No intrahepatic biliary ductal dilatation evident RIGHT KIDNEY: Unremarkable. Normal size and echogenicity. No hydronephrosis GALLBLADDER: No gallstones, gallbladder wall thickening, pericholecystic fluid, or biliary dilatation. IMPRESSION: Negative gallbladder/right upper quadrant ultrasound
== END ==
PROVIDERS: PCP Nurse Practitioner Family; Visit Provider Nurse Practitioner Family
DX: R10.11 Right upper quadrant pain (principal)
CPT/HCPCS: 76705

== ENCOUNTER → 2018-05-25 13:20 | Outpatient (REF) | payer MEDICARE, MEDICAID, SELFPAY ==
[2018-05-26 13:08] LABS: Amphetamine/Metha Screen,Urine Negative ng/mL (<1000); Barbiturates Screen,Urine Negative ng/mL (<200); Benzodiazepines Screen,Urine Negative ng/mL (<200); Cannabinoid Screen,Urine Negative ng/mL (<50); Cocaine Screen,Urine Negative ng/mL (<300); Methadone Screen,Urine Negative ng/mL (<300); Opiate Screen,Urine Negative ng/mL (<300); Phencyclidine Screen,Urine Negative ng/mL (<25)
== END ==
LOC: LAB 13:20
PROVIDERS: Visit Provider Nurse Practitioner Family
DX: Z79.899 Other long term (current) drug therapy (principal)
CPT/HCPCS: 80305

== ENCOUNTER → 2018-07-22 16:44 | Outpatient (CLI) | payer MEDICARE, MEDICAID, SELFPAY ==
[2018-07-22 19:44] LABS: Amphetamine/Metha Screen,Urine Negative ng/mL (<1000); Barbiturates Screen,Urine Negative ng/mL (<200); Benzodiazepines Screen,Urine Negative ng/mL (<200); Cannabinoid Screen,Urine Negative ng/mL (<50); Cocaine Screen,Urine Negative ng/mL (<300); Methadone Screen,Urine Negative ng/mL (<300); Opiate Screen,Urine Negative ng/mL (<300); Phencyclidine Screen,Urine Negative ng/mL (<25)
== END ==
PROVIDERS: Visit Provider Nurse Practitioner Family
DX: Z79.899 Other long term (current) drug therapy (principal)
CPT/HCPCS: 80305

== ENCOUNTER → 2018-10-07 13:22 | Outpatient (CLI) | payer MEDICARE, SELFPAY ==
[2018-10-07 15:39] LABS: Amphetamine/Metha Screen,Urine Negative ng/mL (<1000); Barbiturates Screen,Urine Negative ng/mL (<200); Benzodiazepines Screen,Urine Negative ng/mL (<200); Cannabinoid Screen,Urine Negative ng/mL (<50); Cocaine Screen,Urine Negative ng/mL (<300); Methadone Screen,Urine Negative ng/mL (<300); Opiate Screen,Urine Negative ng/mL (<300); Phencyclidine Screen,Urine Negative ng/mL (<25)
== END ==
PROVIDERS: Visit Provider Nurse Practitioner Family
DX: Z79.899 Other long term (current) drug therapy (principal)
CPT/HCPCS: 80305

== ENCOUNTER → 2019-03-25 11:08 | Outpatient (CLI) | payer MEDICARE, MEDICAID, SELFPAY ==
--- NOTE | 2019-03-25 11:14 | XR_ITS ---
PROCEDURE: XR ELBOW RT 2V CLINICAL INDICATION: pain COMPARISON: No exams were available for comparison FINDINGS: No fracture, dislocation, lytic change, or blastic change evident. No significant degenerative change. No displaced fat pad IMPRESSION: Negative right elbow Dictated by: Ivan Friedman MD 03/25/2019 11:36 Signed by: <Electronically signed by Ivan Friedman MD in [place]> 03/25/2019 11:36
--- NOTE | 2019-03-25 11:14 | XR_ITS ---
PROCEDURE: XR LUMBAR SPINE 2-3V CLINICAL INDICATION: back pain Low back pain COMPARISON: No exams were available for comparison FINDINGS: There is normal alignment. No fracture or dislocation. No lytic or blastic change. There is degenerate disc disease at L5-S1 with facet arthritic changes at that level. IMPRESSION: Degenerate disc disease and facet arthritic change at L5-S1 Dictated by: Ivan Friedman MD 03/25/2019 11:38 Signed by: <Electronically signed by Ivan Friedman MD in [place]> 03/25/2019 11:38
== END ==
PROVIDERS: PCP Nurse Practitioner Family; Visit Provider Nurse Practitioner Family
DX: G89.29 Other chronic pain (principal); M54.9 Dorsalgia, unspecified; M25.521 Pain in right elbow
CPT/HCPCS: 72100; 73070

== ENCOUNTER → 2019-03-25 16:54 | Outpatient (CLI) | payer MEDICARE, MEDICAID, SELFPAY ==
[2019-03-25 18:52] LABS: Amphetamine/Metha Screen,Urine Negative ng/mL (<1000); Barbiturates Screen,Urine Negative ng/mL (<200); Benzodiazepines Screen,Urine Negative ng/mL (<200); Cannabinoid Screen,Urine Negative ng/mL (<50); Cocaine Screen,Urine Negative ng/mL (<300); Methadone Screen,Urine Negative ng/mL (<300); Opiate Screen,Urine Negative ng/mL (<300); Phencyclidine Screen,Urine Negative ng/mL (<25)
== END ==
PROVIDERS: Visit Provider Nurse Practitioner Family
DX: Z79.899 Other long term (current) drug therapy (principal)
CPT/HCPCS: 72100; 73070; 80305

== ENCOUNTER → 2019-09-01 14:53 | Outpatient (CLI) | payer MEDICARE, MEDICAID, SELFPAY ==
[2019-09-01 15:36] LABS: Amphetamine/Metha Screen,Urine Negative ng/mL (<1000); Barbiturates Screen,Urine Negative ng/mL (<200); Benzodiazepines Screen,Urine Negative ng/mL (<200); Cannabinoid Screen,Urine Negative ng/mL (<50); Cocaine Screen,Urine Negative ng/mL (<300); Methadone Screen,Urine Negative ng/mL (<300); Opiate Screen,Urine Negative ng/mL (<300); Phencyclidine Screen,Urine Negative ng/mL (<25)
== END ==
PROVIDERS: Visit Provider Nurse Practitioner Family
DX: R30.0 Dysuria (principal); M54.2 Cervicalgia
CPT/HCPCS: 80305; 87086; 87088; 87186

== ENCOUNTER → 2020-01-26 14:05 | Outpatient (CLI) | payer MEDICARE, MEDICAID, SELFPAY ==
[2020-01-26 14:53] LABS: Basophils % 0.6 % (0.1-2.0); Eosinophils # 0.2 K/mm3 (0.0-0.4); Hematocrit 40.9 % (37.0-47.0); Hemoglobin 13.8 g/dL (12.2-16.2); Lymphocytes # 2.7 K/mm3 (0.7-4.5); Lymphocytes % 50.7 % (10-50); Mean Corpuscular HGB Conc 33.7 g/dL (31.8-35.4); Mean Corpuscular Hemoglobin 33.9 pg (27.0-31.2); Mean Corpuscular Volume 100.5 fl (81-99); Mean Platelet Volume 7.5 fl (7.4-10.4); Monocytes # 0.2 K/mm3 (0.1-1.0); Monocytes % 3.9 % (1.7-9.3); Neutrophils # 2.2 K/mm3 (1.8-7.8); Neutrophils % 41.8 % (37.0-80.0); Platelet Count 360 K/mm3 (142-424); Red Blood Count 4.07 M/mm3 (4.20-5.40); Red Cell Distribution Width 15.2 % (11.5-17.5); White Blood Count 5.3 K/mm3 (4.8-10.8)
[2020-01-26 15:08] LABS: MANUAL DIFFERENTIAL MANUAL DIFFERENTIAL (MANUAL DIFF)
[2020-01-26 15:51] LABS: Chloride 103 mmol/L (98-107); Potassium 3.9 mmoL/L (3.5-5.1); Sodium 138 mmol/L (136-145)
[2020-01-26 15:53] LABS: Blood Urea Nitrogen 4 mg/dl (7-17); Estimated Glomerular Filt Rate 91 ml/min (>60); GFR (African American) 111 ML/MIN (>60)
[2020-01-26 15:54] LABS: Alanine Aminotransferase 14 U/L (12-78); Albumin/Globulin Ratio 1.4 (1.1-1.8); Alkaline Phosphatase 104 U/L (38-126); Anion Gap 8.9 mEq/L (5-15); Aspartate Amino Transferase 27 U/L (14-36); Bilirubin,Total 0.3 mg/dl (0.2-1.3); Carbon Dioxide 30 mmol/L (22.0-30.0); Globulin 2.8 g/dL (1.3-3.2); Total Protein,Serum 6.8 g/dl (6.3-8.2)
[2020-01-26 16:00] LABS: Calcium 8.9 mg/dl (8.4-10.2)
[2020-01-26 16:11] LABS: T4 (Thyroxine) 9.5 ug/dl (5.53-11.0)
[2020-01-26 17:08] LABS: Eosinophils % 1 % (0-3); Lymphocytes % 53 % (10-50); Macrocytosis 1+; Monocytes % 3 % (2-9); Neutrophils % 43 % (42-76); Platelet Estimate Normal; Total Cells Counted 100
[2020-01-26 21:08] LABS: Glucose 143 mg/dl (74-100)
== END ==
PROVIDERS: Visit Provider Nurse Practitioner Family
DX: R53.83 Other fatigue (principal); M54.9 Dorsalgia, unspecified
CPT/HCPCS: 36415; 80053; 84436; 84443; 85007; 85025

== ENCOUNTER → 2020-02-09 17:07 | Outpatient (CLI) | payer MEDICARE, MEDICAID, SELFPAY ==
[2020-02-09 19:18] LABS: Hemoglobin A1C 5.7 % (4.0-6.0)
== END ==
PROVIDERS: Visit Provider Nurse Practitioner Family
DX: R73.09 Other abnormal glucose (principal)
CPT/HCPCS: 36415; 83036

== ENCOUNTER → 2020-02-20 14:43 | Outpatient (CLI) | payer MEDICARE, MEDICAID, SELFPAY ==
--- NOTE | 2020-02-20 14:44 | MM_ITS ---
PROCEDURE: MM DIG SCREENING MAMM BI W/CAD DIGITAL BREAST TOMOSYNTHESIS INCLUDED Patient Age:45Y CLINICAL INDICATION: screening 44-year-old No hormones no new complaints Family history noncontributory COMPARISON: MAMMO SCREENING DIGITAL BILAT from 04/12/2015-from [facility] Screening-Bilateral Mammography from 04/28/2017 TECHNIQUE: Standard CC and MLO images were obtained. R2 CAD reviewed. Bilateral digital breast tomosynthesis included. Additional left MLO view and left MLO tomosynthesis included FINDINGS: Moderate areas breast density persist particularly towards the superior breast bilaterally. However there has been slight progressive fatty regression of fibroglandular elements over course of patient's available mammograms now available, dating back 2016 and 2014 . Overall architecture is similar and stable with no new areas of significant concern. No new dominant mass nor suspicious calcifications Right breast:. No new areas of significant concern Residual fibroglandular elements superiorly superior right breast are less dense than on previous study and dissipate particularly on the CC and cc tomosynthesis views Left breast: No new areas significant concern. Mild asymmetric fibroglandular elements laterally and towards upper-outer quadrant appear stable IMPRESSION: No new areas of concern Bilateral follow-up 1 year. Stable mild asymmetry BI-RAD Category: 2 Benign Finding(s) FOLLOW-UP: 1YR 1 Year Follow-up (A letter has been sent to the patient regarding results of the study.) Dictated by: Silvestre Rebollar MD 03/06/2020 10:23 Electronically signed by Silvestre Rebollar MD in [place] 03/06/2020 10:23
== END ==
PROVIDERS: PCP Nurse Practitioner Family; Visit Provider Nurse Practitioner Family
DX: Z12.31 Encounter for screening mammogram for malignant neoplasm of breast (principal)
CPT/HCPCS: 77063; 77067

== ENCOUNTER 2020-04-26 13:39 | Emergency (ER) | payer MEDICARE, MEDICAID, SELFPAY ==
[2020-04-26] VITALS (10 sets, daily range): BP systolic 108–167; BP diastolic 65–96; PULSE 80–101; RESP 15–22; TEMP 36.6–36.9; O2SAT 98–99; BMI 23.3
--- NOTE | 2020-04-26 13:36 | ECG_ITS ---
APPROVED REPORT Exam: Resting ECG HR:97 bpm ECG Measurements Heart Rate 97 AXES [place] 128 P 47 QRSd 78 QRS 53 QT 356 T 254 QTc 452 <Conclusion> Normal sinus rhythm ST & T wave abnormality, consider inferior ischemia Abnormal ECG Electronically signed by : Atif Swift, 04/27/2020 07:26:59
--- NOTE | 2020-04-26 13:40 | HMH.EDGENADL ---
ED Disposition Clinical Impression: Atypical chest pain Thoracic back pain Qualifiers: Chronicity: acute Back pain laterality: midline Qualified Code(s): M54.6 - Pain in thoracic spine Disposition: Home, Self-Care Condition on Discharge: Fair Instructions: DI for Atypical Chest Pain, DI for Thoracic Back Pain Additional Instructions: Follow-up with Marcelle in the office, call tomorrow. Additional instructions for CHEST PAIN: See your physician as soon as possible for further evaluation. Return immediately if worsening chest pain, vomiting, shortness of breath, fever, coughing of blood. Referrals: PCP,No [Non-Staff] - - Critical Care Critical Care Time: No Attestation: On , the high probability of a clinically significant, sudden or life threatening deterioration of the following system(s) required my full and direct attention, intervention and personal management. The time I documented below is in addition to time spent performing reported procedures but includes the following listed in this critical care notation. Medical Decision Making - Medical Records Medical records reviewed: Yes: I reviewed the patient's medical records. - Julius Inquiry Pt receiving controlled substance: No Vital Signs: 04/26/20 13:39 04/26/20 13:57 04/26/20 14:00 Temperature 98.5 F Temperature Source Oral Pulse Rate [Left Radial] 101 H 92 H 96 H Respiratory Rate 19 22 Blood Pressure [Right Arm] 167/96 H 140/86 123/80 Blood Pressure Mean [Right Arm] 119 104 94 Blood Pressure Source [Right Arm] Automatic Cuff Blood Pressure Position [Right Arm] Sitting Sitting Sitting 02 Sat by Pulse Oximetry 98 98 Oxygen Delivery Method Room Air Room Air 04/26/20 14:10 04/26/20 14:16 04/26/20 14:54 Temperature Temperature Source Pulse Rate [Left Radial] 92 H 87 88 Respiratory Rate Blood Pressure [Right Arm] 140/86 128/78 130/85 Blood Pressure Mean [Right Arm] 104 94 100 Blood Pressure Source [Right Arm] Blood Pressure Position [Right Arm] Sitting Sitting Sitting 02 Sat by Pulse Oximetry Oxygen Delivery Method 04/26/20 15:13 04/26/20 15:41 04/26/20 16:10 Temperature Temperature Source Pulse Rate [Left Radial] 88 88 84 Respiratory Rate 16 Blood Pressure [Right Arm] 129/76 124/76 131/81 Blood Pressure Mean [Right Arm] 93 92 97 Blood Pressure Source [Right Arm] Automatic Cuff Blood Pressure Position [Right Arm] Sitting Sitting 02 Sat by Pulse Oximetry 98 Oxygen Delivery Method Room Air - Lab Data Lab results reviewed: Yes: I reviewed the patient's lab results. Lab Results 04/26/20 13:45: WBC 9.5, RBC 4.05 L, Hgb 13.9, Hct 41.6, MCV 102.7 H, MCH 34.3 H, MCHC 33.3, RDW 14.7, Plt Count 335, MPV 7.2 L, Neut % (Auto) 57.5, Lymph % (Auto) 31.9, [place] % (Auto) 8.1, Eos % (Auto) 2.1, Baso % (Auto) 0.4, Neut # (Auto) 5.5, Lymph # (Auto) 3.0, [place] # (Auto) 0.8, Eos # (Auto) 0.2, Baso # (Auto) 0.0 04/26/20 13:45: Sodium 141, Potassium 3.6, Chloride 105, Carbon Dioxide 29, Anion Gap 10.6, BUN 6 L, Creatinine 0.70, Estimated Creat Clear 103, Estimated GFR 91, Est GFR ( Amer) 110, Glucose 113 H, Calcium 9.1, Troponin I 0.02, Amylase 61 04/26/20 13:45: D-Dimer 0.46 04/26/20 13:45: Lipase 79 04/26/20 13:45: Total Bilirubin 0.3, Direct Bilirubin 0.0, Conjugated Bilirubin 0.0, Indirect Bilirubin 0.3, Unconjugated Bilirubin 0.2, AST 23, ALT 15, Alkaline Phosphatase 89, Total Protein 6.8, Albumin 3.8 04/26/20 16:25: Urine Color Yellow, Urine Appearance Clear, Urine pH 7.0, Ur Specific [place] 1.010, Urine Protein Negative, Urine Glucose (UA) Negative, Urine Ketones Negative, Urine Blood Trace-i, Urine Nitrate Negative, Urine Bilirubin Negative, Urine Urobilinogen 0.2, Ur Leukocyte Esterase Negative, Urine RBC Occasional, Urine WBC None, Ur Squamous Epith Cells 10-20, Amorphous Sediment 1+, Urine Bacteria None 04/26/20 16:30: Troponin I 0.02 Result diagrams: 04/26/20 13:45 04/26/20 13:45 Orders (
--- NOTE | 2020-04-26 13:47 | XR_ITS ---
PROCEDURE: XR CHEST 2V CLINICAL HISTORY: CHEST PAIN COMPARISON: CR CXR CHEST(2 VIEWS-NOT PORTABLE) from 04/15/2017 CR CXR2V XR chest 2V from 09/09/2017 FINDINGS: The cardiomediastinal silhouette and pulmonary vascularity are within normal limits. The lungs are clear without infiltrates, suspicious nodules, or pleural effusions. Pectus deformity. IMPRESSION: No acute findings. Dictated by: Ivan Friedman MD 04/26/2020 14:25 Ivan Friedman MD in [place] 04/26/2020 14:25
--- NOTE | 2020-04-26 13:59 | PC.NURSE ---
Blaine called for consult
[2020-04-26 14:13] LABS: Basophils % 0.4 % (0.1-2.0); Eosinophils # 0.2 K/mm3 (0.0-0.4); Eosinophils % 2.1 % (0.1-12.0); Hematocrit 41.6 % (37.0-47.0); Hemoglobin 13.9 g/dL (12.2-16.2); Lymphocytes % 31.9 % (10-50); Mean Corpuscular HGB Conc 33.3 g/dL (31.8-35.4); Mean Corpuscular Hemoglobin 34.3 pg (27.0-31.2); Mean Corpuscular Volume 102.7 fl (81-99); Mean Platelet Volume 7.2 fl (7.4-10.4); Monocytes # 0.8 K/mm3 (0.1-1.0); Monocytes % 8.1 % (1.7-9.3); Neutrophils # 5.5 K/mm3 (1.8-7.8); Neutrophils % 57.5 % (37.0-80.0); Platelet Count 335 K/mm3 (142-424); Red Blood Count 4.05 M/mm3 (4.20-5.40); Red Cell Distribution Width 14.7 % (11.5-17.5); White Blood Count 9.5 K/mm3 (4.8-10.8)
[2020-04-26 14:17] LABS: Chloride 105 mmol/L (98-107)
[2020-04-26 14:18] LABS: Potassium 3.6 mmoL/L (3.5-5.1); Sodium 141 mmol/L (136-145)
[2020-04-26 14:20] LABS: Lipase 79 U/L (23-300)
[2020-04-26 14:21] LABS: Amylase 61 U/L (30-110); Anion Gap 10.6 mEq/L (5-15); Blood Urea Nitrogen 6 mg/dl (7-17); Calcium 9.1 mg/dl (8.4-10.2); Carbon Dioxide 29 mmol/L (22.0-30.0); Creatinine Clearance Estimated 103 mL/min (50-200); Estimated Glomerular Filt Rate 91 ml/min (>60); GFR (African American) 110 ML/MIN (>60); Glucose 113 mg/dl (74-100)
[2020-04-26 14:26] LABS: D-Dimer 0.46 ug/mL (0.15-8.0)
[2020-04-26 14:34] LABS: Alanine Aminotransferase 15 U/L (12-78); Albumin Level 3.8 g/dl (3.5-5.0); Alkaline Phosphatase 89 U/L (38-126); Aspartate Amino Transferase 23 U/L (14-36); Bilirubin,Indirect 0.3 mg/dL (0.0-0.9); Bilirubin,Total 0.3 mg/dl (0.2-1.3); Bilirubin,Unconjugated 0.2 mg/dL (0.0-1.1); Total Protein,Serum 6.8 g/dl (6.3-8.2); Troponin I 0.02 ng/ml (0.00-0.034)
--- NOTE | 2020-04-26 15:09 | HMH.CNCARD ---
History of Present Illness Consult date: 04/26/20 Requesting physician: Alec Argueta Consult reason: chest pain Chief complaint: Back and chest pain Additional Medical History:: 1. Chronic pain syndrome, on Suboxone 2. Normal coronary arteries by cardiac catheterization, 06/2016, Dr. Andrey Alvarez 3. Tobacco use A. COPD 4. GERD 5. History of asthma History of present illness: Complains of chest pain in the lower sternal area going straight through to her back. States it is a very sharp pain. It increases when she bends over and takes a deep breath. However, it is not associated with shortness of breath. She says she woke up with this pain yesterday morning at 5:30 AM and it is persisted ever since. She is nauseated. Denies diaphoresis. She says that recently she has been having problems with dysphasia and a sensation that food is sticking in the region of her lower esophagus sternal area which then causes hiccups. She last ate this morning at 10 AM, a breakfast burrito, it did not cause any increase or change in her pain. She has not noticed that this pain increases with swallowing or eating. She is a smoker. She has a family history of heart disease. She does not have known coronary artery disease, she says she has had a heart cath at this hospital by Dr. Alvarez several years ago. She is not treated for hypertension or hyperlipidemia. She was seen by her primary care provider, Marcelle Padilla, [employer]PR[employer]ICE for Dr. Pierre, and sent to the emergency room. The above per Dr. Argueta Pt confirms details noted above. Pain worse with cough, deep breathing or just sitting up for exam (to the point of crying). She relates having to throw up her food due to it getting hung up. History of EGD about 7-8 yrs ago but unsure of findings. She has been using OTC PPI intermittently since then when she can afford it. Some of her pain is reproducible with palpation near spine and in upper abdominal area. Pt has been constant for >24 hrs with initial troponin normal and EKG is sinus with chronic inferior and anterolateral ST depression (compared to Dr. Alvarez's interpretation from 06/2016). [facility] History Medical History: Reports:: Asthma, Chronic Obstructive Pulmonary Disease (COPD), Gastroesophageal Reflux Disease(GERD) Denies:: Cancer, Diabetes Mellitus Type 1, Diabetes Mellitus Type 2, Internal Pacemaker, MRSA, Seizures *Have you ever received a pneumonia vaccine?: No *Have you received a flu vaccine this season?: No Other Medical History: Reports: Arthritis, Other. Denies: Blood Transfusion Reaction Laterality Cases: Bilateral: Tonsillectomy Other Surgeries: Yes: (x2), Hysterectomy-Total, Hysterectomy-Partial, Other. No: Pacemaker Amputation: No Fractures: No - *Social History Smoking Status: Current every day smoker Tobacco Type: cigarettes # Packs/Day (cigarettes): 1 #Yrs smoked (if former smoker): 15 Alcohol Intake: never Substance Use Type: denies use *Occupational Status:: disabled Housing: house Household Members: children, family *Travel in the last 8 weeks: None Family Hx:: Coronary Artery Disease, Diabetes Meds Home Medications Medication Instructions Recorded Confirmed Type buprenorphine 8 mg-naloxone 2 mg 1 tab SUBLINGUAL BID tab 08/25/17 04/26/20 History sublingual tablet amitriptyline 50 mg tablet 50 mg PO QHS tab 04/20/20 04/26/20 History gabapentin 800 mg tablet 800 mg PO TID #90 tab 04/20/20 04/26/20 Rx Acyclovir 1 applic TOPICAL 5XD 04/26/20 04/26/20 History Albuterol Sulfate [Proventil Hfa] See Rx Instructions .ROUTE .COMPLEX 04/26/20 04/26/20 History Fluticasone/Salmeterol [Advair 1 puff INHALATION BID 04/26/20 04/26/20 History Diskus] cephALEXin [Keflex 500mg Cap] 500 mg PO Q12H 04/26/20 04/26/20 History predniSONE [Deltasone 20mg 20 mg PO BID 04/26/20 04/26/20 History tablet] Allergies Allergy/AdvReac Type Severity Reaction Status Date / Time ciprofloxacin [From CIPRO]
--- NOTE | 2020-04-26 15:14 | PC.NURSE ---
sherif betancourt np paged
--- NOTE | 2020-04-26 15:25 | PC.NURSE ---
Dr Argueta spoke with sherif betancourt NP.
[2020-04-26 16:34] LABS: Microscopic, Urine URINE MICROSCOPIC (MICROSCOPIC)
[2020-04-26 16:39] LABS: Appearance,Urine CLEAR (Clear); Bilirubin,Urine Negative (Negative); Blood, Urine TRACE-I (Negative); Color,Urine YELLOW (Yellow); Glucose,Urine (UA) Negative (Negative); Ketones,Urine Negative (Negative); Leukocyte Esterase,Urine Negative (Negative); Nitrate,Urine Negative (Negative); Protein,Urine Negative (Negative); Urobilinogen,Urine 0.2 EU/dl (0.2)
[2020-04-26 16:48] LABS: Amorphous Sediment,Urine 1+ /lpf; RBC,Urine Occasional #/hpf (0-3)
[2020-04-26 17:01] LABS: Troponin I 0.02 ng/ml (0.00-0.034)
== END 2020-04-26 17:13 | disposition home or self-care (01) ==
PROVIDERS: Emergency Provider Emergency Medicine; PCP Nurse Practitioner Family
DX: R07.89 Other chest pain (principal); M54.6 Pain in thoracic spine; K21.9 Gastro-esophageal reflux disease without esophagitis; J44.9 Chronic obstructive pulmonary disease, unspecified; M06.9 Rheumatoid arthritis, unspecified; Z90.710 Acquired absence of both cervix and uterus; Z88.2 Allergy status to sulfonamides; Z88.1 Allergy status to other antibiotic agents; F17.210 Nicotine dependence, cigarettes, uncomplicated; Z82.49 Family history of ischemic heart disease and other diseases of the circulatory system; Z79.899 Other long term (current) drug therapy
CPT/HCPCS: 71046; 80048; 80076; 81001; 82150; 83690; 84484; 85025; 85378; 93005; 96374; 96375; 99284

== ENCOUNTER 2020-05-17 17:15 | Emergency (ER) | payer MEDICARE, MEDICAID, SELFPAY ==
--- NOTE | 2020-05-17 17:08 | ECG_ITS ---
APPROVED REPORT Exam: Resting ECG HR:91 bpm ECG Measurements Heart Rate 91 AXES UT 132 P 54 QRSd 82 QRS 55 QT 372 T -75 QTc 457 Conclusion Normal sinus rhythm ST & T wave abnormality, consider inferior ischemia Abnormal ECG Electronically signed by : Atif Swift, 05/18/2020 13:42:40
[2020-05-17 17:15] VITALS: BP 113/71; PULSE 98; RESP 16; TEMP 36.6; O2SAT 98; BMI 25.7; BMI 26.0
--- NOTE | 2020-05-17 17:17 | PC.NURSE ---
Calling [facility] to get pt's previous records at this time.
--- NOTE | 2020-05-17 17:18 | XR_ITS ---
PROCEDURE: XR CHEST PORTABLE CLINICAL HISTORY: chest pain Sided chest pain COMPARISON: CR CXR CHEST(2 VIEWS-NOT PORTABLE) from 04/15/2017 CR CXR2V XR chest 2V from 09/09/2017 CR XR CHEST 2V from 04/26/2020 FINDINGS: The cardiomediastinal silhouette and pulmonary vascularity are within normal limits. There is faint increased density in the left lower lobe suspicious for pneumonia with small effusion. Slight increased density also noted right lung base but may be due to vascular crowding. Upright PA and lateral chest may provide further evaluation. No acute bony abnormalities. IMPRESSION: Left lower lobe pneumonia with small effusion Dictated by: Ivan Friedman MD 05/18/2020 04:47 Ivan Friedman MD in [place] 05/18/2020 04:47
--- NOTE | 2020-05-17 17:19 | HMH.EDGENADL ---
ED Disposition Clinical Impression: Pleuritic chest pain Disposition: Home, Self-Care Condition on Discharge: Good Instructions: DI for Chest Pain Additional Instructions: You have been evaluated for pleuritic chest pain. Please continue to take antibiotics as prescribed. Follow-up with your primary care doctor. Return to the emergency department if you have new or worsening symptoms, difficulty breathing, worsening chest pain, other concerns. Prescriptions: Azithromycin [Z-John 250mg Tab] 250 mg PO DIRECTED #6 tab Transmission Status: [facility] Referrals: Marcelle Padilla APRN [Primary Care Provider] - Time of Disposition: 19:33 - Critical Care Critical Care Time: No Attestation: On , the high probability of a clinically significant, sudden or life threatening deterioration of the following system(s) required my full and direct attention, intervention and personal management. The time I documented below is in addition to time spent performing reported procedures but includes the following listed in this critical care notation. Medical Decision Making - Medical Records Medical records reviewed: Yes: I reviewed the patient's medical records. - Julius Inquiry Pt receiving controlled substance: No Vital Signs: 05/17/20 17:15 Temperature 98 F Temperature Source Oral Pulse Rate [Left Radial] 98 H Respiratory Rate 16 Blood Pressure [Right Arm] 113/71 Blood Pressure Mean [Right Arm] 85 Blood Pressure Position [Right Arm] Sitting 02 Sat by Pulse Oximetry 98 Oxygen Delivery Method Room Air - Lab Data Lab Results 05/17/20 18:25: D-Dimer 2.96 05/17/20 18:25: WBC 7.8, RBC 3.88 L, Hgb 12.1 L, Hct 38.0, MCV 97.9, MCH 31.2, MCHC 31.8, RDW 14.4, Plt Count 522 H, MPV 7.6, Neut % (Auto) 65.3, Lymph % (Auto) 25.5, Henderson % (Auto) 7.4, Eos % (Auto) 1.3, Baso % (Auto) 0.5, Neut # (Auto) 5.1, Lymph # (Auto) 2.0, Henderson # (Auto) 0.6, Eos # (Auto) 0.1, Baso # (Auto) 0.0 05/17/20 18:25: Sodium 138, Potassium 3.4 L, Chloride 100, Carbon Dioxide 31 H, Anion Gap 10.4, BUN 7, Creatinine 0.70, Estimated Creat Clear 100, Estimated GFR 91, Est GFR ( Amer) 110, Glucose 91, Calcium 9.2, Troponin I < 0.01 Result diagrams: 05/17/20 18:25 05/17/20 18:25 Orders (Tests/Meds): ORDERS Category Date Time Status CXR --portable [XR chest portable] Stat Exams 05/17/20 17:18 Taken Troponin I Q3H Lab 05/17/20 20:30 Ordered Troponin I Q3H Lab 05/17/20 23:30 Ordered - ECG Data Tracing #1 sinus rhythm with ventricular rate of 91 bpm. QRS 82, QTc 457. Moderate ST and T wave abnormality in the inferior leads. No significant ST segment elevation. No arrhythmia. Medical Decision Narrative: In summary this is a 45-year-old female with recent diagnosis of pneumonia presenting to the emergency department with left-sided chest pain. Patient clinically stable on arrival, she is tachypneic and splinting with inspiration. I have concern for pulmonary embolus, pneumonia, diaphragmatic irritation, ACS. Will obtain CBC, CMP, chest x-ray, EKG, troponin profile, d-dimer. EKG shows moderate ST segment changes in the inferior leads. Initial laboratory results are reassuring. D-dimer within normal limits, doubt pulmonary embolus. Initial troponin not elevated. Chest x-ray shows no large infiltrate. Patient counseled that she likely has pneumonia. She should continue to take antibiotics as prescribed. Given return precautions for new or worsening symptoms. Her oxygen saturations remained appropriate on room air. No increased work of breathing. Stable for discharge. General Adult HPI - General Stated complaint: CP Time Seen by Provider: 05/17/20 17:19 - History of Present Illness HPI narrative: 45-year-old female presenting to the emergency department with left-sided chest pain. Symptoms started 3 nights ago while she was asleep, they woke her up. Had pain located by her left posterior
--- NOTE | 2020-05-17 17:21 | PC.NURSE ---
records to be sent at this time.
--- NOTE | 2020-05-17 17:51 | PC.NURSE ---
received records at this time.
[2020-05-17 18:37] LABS: Basophils % 0.5 % (0.1-2.0); Eosinophils # 0.1 K/mm3 (0.0-0.4); Eosinophils % 1.3 % (0.1-12.0); Hemoglobin 12.1 g/dL (12.2-16.2); Lymphocytes % 25.5 % (10-50); Mean Corpuscular HGB Conc 31.8 g/dL (31.8-35.4); Mean Corpuscular Hemoglobin 31.2 pg (27.0-31.2); Mean Corpuscular Volume 97.9 fl (81-99); Mean Platelet Volume 7.6 fl (7.4-10.4); Monocytes # 0.6 K/mm3 (0.1-1.0); Monocytes % 7.4 % (1.7-9.3); Neutrophils # 5.1 K/mm3 (1.8-7.8); Neutrophils % 65.3 % (37.0-80.0); Platelet Count 522 K/mm3 (142-424); Red Blood Count 3.88 M/mm3 (4.20-5.40); Red Cell Distribution Width 14.4 % (11.5-17.5); White Blood Count 7.8 K/mm3 (4.8-10.8)
[2020-05-17 18:41] LABS: Chloride 100 mmol/L (98-107); Potassium 3.4 mmoL/L (3.5-5.1); Sodium 138 mmol/L (136-145)
[2020-05-17 18:44] LABS: Anion Gap 10.4 mEq/L (5-15); Blood Urea Nitrogen 7 mg/dl (7-17); Calcium 9.2 mg/dl (8.4-10.2); Carbon Dioxide 31 mmol/L (22.0-30.0); Creatinine Clearance Estimated 100 mL/min (50-200); Estimated Glomerular Filt Rate 91 ml/min (>60); GFR (African American) 110 ML/MIN (>60); Glucose 91 mg/dl (74-100)
[2020-05-17 18:50] LABS: D-Dimer 2.96 ug/mL (0.15-8.0)
[2020-05-17 19:19] LABS: Troponin I < 0.01 ng/ml (0.00-0.034)
[2020-05-17 19:57] VITALS: BP 114/74; PULSE 52; RESP 16; TEMP 36.8; O2SAT 95
== END 2020-05-17 20:03 | disposition home or self-care (01) ==
PROVIDERS: Emergency Provider Emergency Medicine; PCP Nurse Practitioner Family
DX: R07.89 Other chest pain (principal); J44.9 Chronic obstructive pulmonary disease, unspecified; K21.9 Gastro-esophageal reflux disease without esophagitis; Z79.899 Other long term (current) drug therapy; F17.210 Nicotine dependence, cigarettes, uncomplicated; Z88.2 Allergy status to sulfonamides; Z90.710 Acquired absence of both cervix and uterus
CPT/HCPCS: 71045; 80048; 84484; 85025; 85378; 93005; 99282; 99283

== ENCOUNTER → 2020-09-30 10:53 | Outpatient (CLI) | payer MEDICARE, MEDICAID, SELFPAY | PROVIDERS: PCP Nurse Practitioner Family; Visit Provider Nurse Practitioner Family | DX: Z20.822 Contact with and (suspected) exposure to COVID-19 (principal) | CPT/HCPCS: U0003 ==

== ENCOUNTER → 2020-12-21 17:05 | Outpatient (CLI) | payer MEDICARE, MEDICAID, SELFPAY ==
[2020-12-21 17:47] LABS: Erythrocyte Sedimentation Rate 69 mm/hr (0-20)
[2020-12-21 17:52] LABS: Basophils % 0.6 % (0.1-2.0); Eosinophils # 0.2 K/mm3 (0.0-0.4); Eosinophils % 2.9 % (0.1-12.0); Hematocrit 39.4 % (37.0-47.0); Hemoglobin 13.2 g/dL (12.2-16.2); Lymphocytes # 2.7 K/mm3 (0.7-4.5); Lymphocytes % 50.9 % (10-50); Mean Corpuscular HGB Conc 33.5 g/dL (31.8-35.4); Mean Corpuscular Hemoglobin 31.1 pg (27.0-31.2); Mean Corpuscular Volume 92.7 fl (81-99); Mean Platelet Volume 8.1 fl (7.4-10.4); Monocytes # 0.4 K/mm3 (0.1-1.0); Monocytes % 6.6 % (1.7-9.3); Platelet Count 404 K/mm3 (142-424); Red Blood Count 4.25 M/mm3 (4.20-5.40); Red Cell Distribution Width 14.1 % (11.5-17.5); White Blood Count 5.2 K/mm3 (4.8-10.8)
[2020-12-21 17:58] LABS: Alanine Aminotransferase 14 U/L (12-78); Albumin Level 4.3 g/dl (3.5-5.0); Albumin/Globulin Ratio 1.4 (1.1-1.8); Alkaline Phosphatase 110 U/L (38-126); Anion Gap 7.1 mEq/L (5-15); Aspartate Amino Transferase 23 U/L (14-36); Bilirubin,Total 0.5 mg/dl (0.2-1.3); Blood Urea Nitrogen 5 mg/dl (7-17); Calcium 9.4 mg/dl (8.4-10.2); Carbon Dioxide 32 mmol/L (22.0-30.0); Chloride 105 mmol/L (98-107); Chol/HDL Ratio 6.8 (1-3.5); Cholesterol 216 mg/dl (140-200); Estimated Glomerular Filt Rate 78 ml/min (>60); GFR (African American) 94 ML/MIN (>60); Globulin 3.1 g/dL (1.3-3.2); Glucose 96 mg/dl (74-100); HDL Cholesterol 32 mg/dl (40-60); Potassium 4.1 mmoL/L (3.5-5.1); Sodium 140 mmol/L (136-145); Total Protein,Serum 7.4 g/dl (6.3-8.2); Triglycerides 200 mg/dl (30-150); VLDL Cholesterol 40 mg/dL (0-40)
[2020-12-21 18:09] LABS: Direct LDL Cholesterol 130.72 mg/dL (100-129); MANUAL DIFFERENTIAL MANUAL DIFFERENTIAL (MANUAL DIFF)
[2020-12-21 18:13] LABS: Free T4 (Free Thyroxine) 1.35 ng/dl (0.78-2.19)
[2020-12-21 18:14] LABS: 25-OH Vitamin D, Total 31.1 ng/mL (30-100)
[2020-12-21 18:29] LABS: Thyroid Stimulating Hormone 1.12 uIU/mL (0.465-4.68)
[2020-12-21 18:59] LABS: Eosinophils % 2 % (0-3); Lymphocytes % 55 % (10-50); Monocytes % 12 % (2-9); Neutrophils % 31 % (42-76); Platelet Estimate Normal; RBC Morphology Normal; Total Cells Counted 100
== END ==
PROVIDERS: Visit Provider Emergency Medicine
DX: R07.9 Chest pain, unspecified (principal); R53.83 Other fatigue; E55.9 Vitamin D deficiency, unspecified; M54.9 Dorsalgia, unspecified
CPT/HCPCS: 80053; 80061; 82306; 84439; 84443; 85007; 85025; 85651

== ENCOUNTER → 2021-03-20 18:36 | Outpatient (CLI) | payer MEDICARE, MEDICAID, SELFPAY ==
[2021-03-20 19:28] LABS: Erythrocyte Sedimentation Rate 57 mm/hr (0-20)
== END ==
PROVIDERS: Visit Provider Emergency Medicine
DX: R10.9 Unspecified abdominal pain (principal)
CPT/HCPCS: 85651

== ENCOUNTER 2021-04-18 12:49 | Emergency (ER) | payer MEDICARE, MEDICAID, SELFPAY ==
[2021-04-18 14:20] VITALS: BP 138/87; PULSE 86; RESP 18; TEMP 36.7; O2SAT 96; BMI 27.3
--- NOTE | 2021-04-18 14:58 | HMH.EDUTC ---
[facility] Disposition Clinical Impression: Encounter for laboratory testing for COVID-19 virus Sinusitis Qualifiers: Sinusitis location: unspecified location Chronicity: unspecified Qualified Code(s): J32.9 - Chronic sinusitis, unspecified Disposition: Home, Self-Care Condition on Discharge: Good Instructions: Sinusitis, DI for Sinusitis, DI for COVID-19 (Suspected or Confirmed ), Preventing the Spread of Coronavirus Discharge Instructions Additional Instructions: *Monitor Temp, Over the counter Motrin or Tylenol as directed/as needed Tylenol every 4 hours and Motrin every 6 hours (as long as your family doctor has told you that you can take it) for fever or pain. and straight to ER if unable to lower temp less than 101.0 after medication given *Warm salt water gargles may help to soothe the throat *Throat Lozenges *Warm fluids like tea with honey may help to soothe the throat *Sleep elevated *Humidifier/Vaporizer *Take medications as prescribed Return if needed Follow up IMMEDIATELY for new or worsening symptoms or no Noticeable improvement over the next 48-72 hours. 911 for difficulty breathing or swallowing You were tested for today for COVID19 your test result should be back in the next 24-48 hours, you may call to the [facility] to see if your test results are back in the next 48 hours [phone] [facility] hours are 9am-9pm You was given a handout with instructions for Self Quarantine and Self isolation for while you wait on test results and what to do if they are positive If you are positive the Health Dept will be contacting you also Make sure to take your Vitamins Vit. C Vit D and Zinc if you can take them Prescriptions: predniSONE [Deltasone 10mg tablet] 10 mg PO BID 5 Days #10 tab Transmission Status: [facility] Azithromycin [Z-John 250mg Tab] 250 mg PO DIRECTED #6 tab Transmission Status: Pending to [facility] Referrals: Martin Pierre MD [Primary Care Provider] - As needed Medical Decision Making - Julius Inquiry Pt receiving controlled substance: No Julius was queried for this patient: No Vital Signs: 04/18/21 14:20 Temperature 98.1 F Temperature Source Oral Pulse Rate [Right Brachial] 86 Respiratory Rate 18 Blood Pressure [Right Arm] 138/87 Blood Pressure Mean [Right Arm] 104 Blood Pressure Source [Right Arm] Automatic Cuff Blood Pressure Position [Right Arm] Sitting 02 Sat by Pulse Oximetry 96 Oxygen Delivery Method Room Air - Lab Data Lab results reviewed: Yes: I reviewed the patient's lab results. Orders (Tests/Meds): ORDERS Category Date Time Status Covid-19 Nasal PCR ([facility]) Routine Lab 04/18/21 14:36 Received Medical Decision Narrative: :Patient states that she has taken azithromycin and prednisone in the past without complications or reactions [facility] [place] HPI - General Stated complaint: covid test Time Seen by Provider: 04/18/21 14:58 Mode of Arrival: Ambulatory Source of Information: Patient Limitations: No Limitations Description of Symptoms (Recalled from Triage Doc. by RN): PATIENT C/O COUGH, SORE THROAT, BODY ACHES AND CHILLD X 2 DAYS HEENT Symptoms (Recalled from RN notes): Yes Resp Symptoms (Recalled from RN notes): Yes Skin Symptoms (Recalled from RN notes): No MS Symptoms (Recalled from RN notes): No Functional Status (Recalled from RN notes): WNL - Related Data Home Medications Medication Instructions Recorded Confirmed buprenorphine 8 mg-naloxone 2 mg 1 tab SUBLINGUAL BID tab 08/25/17 03/20/21 sublingual tablet albuterol sulfate 0.63 mg/3 mL 0.63 mg INHALATION Q6H 12/21/20 03/20/21 solution for nebulization Previous Rx's Medication Instructions Recorded albuterol sulfate 90 mcg/actuation See Rx Instructions .ROUTE 06/20/20 aerosol inhaler .COMPLEX #6.7 g atorvastatin 10 mg tablet 10 mg PO HS #90 tab 03/20/21 gabapentin 800 mg tablet 800 mg PO TID 30 Days #90 tab 03/20/21 Azithromycin [Z-John 250mg Tab*
[2021-04-18 15:09] LABS: UTC Strep Screen (Rapid) Negative (Negative)
[2021-04-18 15:46] VITALS: BP 138/87; PULSE 86; RESP 18; TEMP 36.7; O2SAT 96
== END 2021-04-18 15:47 | disposition home or self-care (01) ==
PROVIDERS: Emergency Provider Nurse Practitioner; PCP Emergency Medicine
DX: J32.9 Chronic sinusitis, unspecified (principal); J44.9 Chronic obstructive pulmonary disease, unspecified; K21.9 Gastro-esophageal reflux disease without esophagitis; F17.210 Nicotine dependence, cigarettes, uncomplicated
CPT/HCPCS: G0463; 87880; 99203; U0003

== ENCOUNTER → 2021-06-18 18:56 | Outpatient (CLI) | payer MEDICARE, MEDICAID, SELFPAY | PROVIDERS: Visit Provider Emergency Medicine | DX: Z20.822 Contact with and (suspected) exposure to COVID-19 (principal) | CPT/HCPCS: C9803; U0003; U0005 ==

== ENCOUNTER → 2021-06-26 13:36 | Outpatient (CLI) | payer MEDICARE, MEDICAID, SELFPAY | PROVIDERS: PCP Emergency Medicine; Visit Provider Nurse Practitioner | DX: Z20.822 Contact with and (suspected) exposure to COVID-19 (principal) | CPT/HCPCS: C9803; U0003; U0005 ==

== ENCOUNTER → 2022-06-16 12:51 | Outpatient (CLI) | payer MEDICARE, MEDICAID, SELFPAY ==
--- NOTE | 2022-06-16 12:51 | CT_ITS ---
FINAL REPORT TECHNIQUE: After the administration of intravenous contrast, axial images through the chest were performed by computed tomography.This study was performed with techniques to keep radiation doses as low as reasonably achievable, (ALARA). Individualized dose reduction techniques using automated exposure control or adjustment of mA and/or kV according to the patient''s size were employed. CLINICAL HISTORY: mass/lump. bb placed on palpable mass, on sc joint (left side). smoker FINDINGS: A BB was placed at the site of the palpable abnormality. There is no axillary adenopathy. There is no hilar or mediastinal adenopathy. The heart size is normal. There is no pericardial or pleural effusion. Limited images of the upper abdomen are unremarkable. No suspicious infiltrate or nodule identified. No mass or fluid collection identified at the area of interest. IMPRESSION: No acute process. No mass or fluid collection at the area of interest. Reviewed, Interpreted and Dictated by Frankie Clark MD Transcribed by Jimbo Ruvalcaba Authenticated and [facility]
== END ==
PROVIDERS: PCP Emergency Medicine; Visit Provider Emergency Medicine
DX: R22.2 Localized swelling, mass and lump, trunk (principal)
CPT/HCPCS: 71260; Q9967

== ENCOUNTER → 2022-06-24 01:50 | Outpatient (CLI) | payer MEDICARE, MEDICAID, SELFPAY ==
[2022-06-24 20:10] LABS: Basophils # 0.1 K/mm3 (0-0.2); Basophils % 0.9 % (0.1-2.0); Eosinophils # 0.2 K/mm3 (0.0-0.4); Eosinophils % 2.6 % (0.1-12.0); Hematocrit 45.5 % (37.0-47.0); Hemoglobin 14.7 g/dL (12.2-16.2); Lymphocytes % 38.8 % (10-50); Mean Corpuscular HGB Conc 32.3 g/dL (31.8-35.4); Mean Corpuscular Hemoglobin 31.7 pg (27.0-31.2); Mean Corpuscular Volume 97.9 fl (81-99); Mean Platelet Volume 8.4 fl (7.4-10.4); Monocytes # 0.4 K/mm3 (0.1-1.0); Monocytes % 5.6 % (1.7-9.3); Platelet Count 434 K/mm3 (142-424); Red Blood Count 4.64 M/mm3 (4.20-5.40); White Blood Count 7.8 K/mm3 (4.8-10.8)
[2022-06-24 20:17] LABS: Alanine Aminotransferase 11 U/L (12-78); Albumin Level 4.4 g/dl (3.5-5.0); Albumin/Globulin Ratio 1.6 (1.1-1.8); Alkaline Phosphatase 148 U/L (38-126); Anion Gap 11.2 mEq/L (5-15); Aspartate Amino Transferase 24 U/L (14-36); Bilirubin,Total 0.2 mg/dl (0.2-1.3); Blood Urea Nitrogen 3 mg/dl (7-17); Calcium 9.5 mg/dl (8.4-10.2); Carbon Dioxide 32 mmol/L (22.0-30.0); Chloride 100 mmol/L (98-107); Chol/HDL Ratio 4.9 (1-3.5); Cholesterol 211 mg/dl (140-200); Estimated Glomerular Filt Rate 108 ml/min (>60); GFR (African American) 130 ML/MIN (>60); Globulin 2.8 g/dL (1.3-3.2); Glucose 90 mg/dl (74-100); HDL Cholesterol 43 mg/dl (40-60); Potassium 4.2 mmoL/L (3.5-5.1); Sodium 139 mmol/L (136-145); Total Protein,Serum 7.2 g/dl (6.3-8.2); Triglycerides 124 mg/dl (30-150); VLDL Cholesterol 25 mg/dL (0-40)
[2022-06-24 20:28] LABS: Direct LDL Cholesterol 134.86 mg/dL (100-129)
[2022-06-24 20:34] LABS: 25-OH Vitamin D, Total 35.3 ng/mL (30-100); Free T4 (Free Thyroxine) 0.93 ng/dl (0.78-2.19)
[2022-06-24 20:49] LABS: Thyroid Stimulating Hormone 3.24 uIU/mL (0.465-4.68)
== END ==
PROVIDERS: PCP Emergency Medicine; Visit Provider Emergency Medicine
DX: J44.9 Chronic obstructive pulmonary disease, unspecified (principal); E05.90 Thyrotoxicosis, unspecified without thyrotoxic crisis or storm; E03.9 Hypothyroidism, unspecified; E55.9 Vitamin D deficiency, unspecified; R07.9 Chest pain, unspecified
CPT/HCPCS: 80053; 80061; 82306; 84439; 84443; 85025

== ENCOUNTER → 2022-12-17 13:30 | Outpatient (CLI) | payer MEDICARE, MEDICAID, SELFPAY ==
[2022-12-17 18:32] LABS: Barbiturates Screen,Urine Negative ng/ml (<200)
[2022-12-17 18:33] LABS: Benzodiazepines Screen,Urine Negative ng/ml (<200)
[2022-12-17 18:34] LABS: Amphetamine/Metha Screen,Urine Negative ng/ml (<1000); Cocaine Screen,Urine Negative ng/ml (<300)
[2022-12-17 18:35] LABS: Methadone Screen,Urine Negative ng/ml (<300)
[2022-12-17 18:36] LABS: Cannabinoid Screen,Urine Negative ng/ml (<50); Opiate Screen,Urine Negative ng/ml (<300)
[2022-12-17 18:37] LABS: Phencyclidine Screen,Urine Negative ng/ml (<25)
== END ==
PROVIDERS: PCP Emergency Medicine; Visit Provider Emergency Medicine
DX: Z79.899 Other long term (current) drug therapy (principal)
CPT/HCPCS: 80305

== ENCOUNTER → 2022-12-29 14:48 | Outpatient (CLI) | payer MEDICARE, MEDICAID, SELFPAY | PROVIDERS: PCP Emergency Medicine; Visit Provider Nurse Practitioner Family | DX: R00.2 Palpitations (principal); R06.00 Dyspnea, unspecified | CPT/HCPCS: 93270 ==

== ENCOUNTER → 2023-01-19 10:03 | Outpatient (CLI) | payer MEDICARE, MEDICAID, SELFPAY | PROVIDERS: PCP Emergency Medicine; Visit Provider Emergency Medicine | DX: R07.9 Chest pain, unspecified (principal) | CPT/HCPCS: 93306 ==

== ENCOUNTER → 2023-02-04 09:15 | Outpatient (CLI) | payer MEDICARE, MEDICAID, SELFPAY ==
[2023-02-04 15:00] LABS: Barbiturates Screen,Urine Negative ng/ml (<200); Benzodiazepines Screen,Urine Negative ng/ml (<200)
[2023-02-04 15:01] LABS: Amphetamine/Metha Screen,Urine Negative ng/ml (<1000)
[2023-02-04 15:02] LABS: Cocaine Screen,Urine Negative ng/ml (<300)
[2023-02-04 15:03] LABS: Methadone Screen,Urine Negative ng/ml (<300)
[2023-02-04 15:04] LABS: Opiate Screen,Urine Negative ng/ml (<300); Phencyclidine Screen,Urine Negative ng/ml (<25)
[2023-02-04 15:12] LABS: Cannabinoid Screen,Urine Negative ng/ml (<50)
[2023-02-04 15:58] LABS: Basophils # 0.1 K/mm3 (0-0.2); Basophils % 0.9 % (0.1-2.0); Eosinophils # 0.3 K/mm3 (0.0-0.4); Eosinophils % 4.6 % (0.1-12.0); Hematocrit 45.1 % (37.0-47.0); Hemoglobin 14.2 g/dL (12.2-16.2); Lymphocytes # 2.7 K/mm3 (0.7-4.5); Lymphocytes % 49.3 % (10-50); Mean Corpuscular HGB Conc 31.4 g/dL (31.8-35.4); Mean Corpuscular Hemoglobin 31.1 pg (27.0-31.2); Mean Corpuscular Volume 98.8 fl (81-99); Mean Platelet Volume 8.5 fl (7.4-10.4); Monocytes # 0.4 K/mm3 (0.1-1.0); Monocytes % 7.8 % (1.7-9.3); Neutrophils % 37.4 % (37.0-80.0); Platelet Count 414 K/mm3 (142-424); Red Blood Count 4.56 M/mm3 (4.20-5.40); Red Cell Distribution Width 14.4 % (11.5-17.5); White Blood Count 5.4 K/mm3 (4.8-10.8)
[2023-02-04 16:09] LABS: Alanine Aminotransferase 16 U/L (12-78); Albumin Level 4.2 g/dl (3.5-5.0); Albumin/Globulin Ratio 1.4 (1.1-1.8); Alkaline Phosphatase 111 U/L (38-126); Anion Gap 14.8 mEq/L (5-15); Aspartate Amino Transferase 24 U/L (14-36); Bilirubin,Total 0.3 mg/dl (0.2-1.3); Blood Urea Nitrogen 4 mg/dl (7-17); Calcium 9.1 mg/dl (8.4-10.2); Carbon Dioxide 28 mmol/L (22.0-30.0); Chloride 104 mmol/L (98-107); Chol/HDL Ratio 5.3 (1-3.5); Cholesterol 190 mg/dl (140-200); Estimated Glomerular Filt Rate 108 ml/min (>60); GFR (African American) 130 ML/MIN (>60); Globulin 2.9 g/dL (1.3-3.2); Glucose 104 mg/dl (74-100); HDL Cholesterol 36 mg/dl (40-60); Lipase 72 U/L (23-300); Potassium 3.8 mmoL/L (3.5-5.1); Sodium 143 mmol/L (136-145); Total Protein,Serum 7.1 g/dl (6.3-8.2); Triglycerides 120 mg/dl (30-150); VLDL Cholesterol 24 mg/dL (0-40)
[2023-02-04 16:21] LABS: Direct LDL Cholesterol 113.33 mg/dL (100-129)
== END ==
PROVIDERS: PCP Emergency Medicine; Visit Provider Emergency Medicine
DX: Z79.899 Other long term (current) drug therapy (principal); K82.9 Disease of gallbladder, unspecified; E78.5 Hyperlipidemia, unspecified; R10.32 Left lower quadrant pain
CPT/HCPCS: 80053; 80061; 80305; 83690; 85025

== ENCOUNTER → 2023-02-18 06:50 | Outpatient (CLI) | payer SELFPAY ==
--- NOTE | 2023-02-18 06:57 | US_ITS ---
FINAL REPORT CLINICAL HISTORY: Abdominal pain COMPARISON: None FINDINGS: Sonographic images of the right upper quadrant were obtained. The pancreas is partially obscured.The liver has an unremarkable appearance.The gallbladder appears normal without evidence of gallstones.There is no evidence of biliary ductal dilatation.The common duct measures 2 mm. Limited images of the right kidney are unremarkable. IMPRESSION: Unremarkable right upper quadrant ultrasound. Reviewed, Interpreted and Dictated by Gómez Flores III, MD Transcribed by Jaquelin Hayden Authenticated and . [facility]
== END ==
PROVIDERS: PCP Emergency Medicine; Visit Provider Emergency Medicine
DX: K80.50 Calculus of bile duct without cholangitis or cholecystitis without obstruction (principal)
CPT/HCPCS: 76705

== ENCOUNTER → 2023-03-16 23:14 | Outpatient (CLI) | payer MEDICARE, SELFPAY ==
[2023-03-16 20:09] LABS: Amphetamine/Metha Screen,Urine Negative ng/ml (<1000); Barbiturates Screen,Urine Negative ng/ml (<200); Benzodiazepines Screen,Urine Negative ng/ml (<200); Cocaine Screen,Urine Negative ng/ml (<300); Methadone Screen,Urine Negative ng/ml (<300); Opiate Screen,Urine Negative ng/ml (<300); Phencyclidine Screen,Urine Negative ng/ml (<25)
[2023-03-16 20:18] LABS: Cannabinoid Screen,Urine Negative ng/ml (<50)
== END ==
PROVIDERS: PCP Emergency Medicine; Visit Provider Emergency Medicine
DX: Z79.899 Other long term (current) drug therapy (principal)
CPT/HCPCS: 80305

== ENCOUNTER 2023-09-03 21:34 | Outpatient (CLI) | payer MEDICARE, SELFPAY ==
[2023-09-03 23:36] LABS: Benzodiazepines Screen,Urine Negative ng/ml (<200)
[2023-09-03 23:37] LABS: Amphetamine/Metha Screen,Urine Negative ng/ml (<1000); Barbiturates Screen,Urine Negative ng/ml (<200)
[2023-09-03 23:38] LABS: Cannabinoid Screen,Urine Negative ng/ml (<50); Cocaine Screen,Urine Negative ng/ml (<300)
[2023-09-03 23:39] LABS: Methadone Screen,Urine Negative ng/ml (<300)
[2023-09-03 23:40] LABS: Opiate Screen,Urine Negative ng/ml (<300); Phencyclidine Screen,Urine Negative ng/ml (<25)
[2023-09-10 09:22] LABS: Gabapentin,Urine >800.0 ug/mL (.)
== END 2023-09-03 23:59 ==
LOC: LAB.DROPOF 21:35
PROVIDERS: PCP Nurse Practitioner Family; Visit Provider Nurse Practitioner Family
DX: Z79.899 Other long term (current) drug therapy (principal)
CPT/HCPCS: 80307

== ENCOUNTER 2023-10-27 22:02 | Outpatient (CLI) | payer MEDICARE, SELFPAY ==
[2023-10-27 19:15] LABS: Basophils # 0.1 K/mm3 (0-0.2); Basophils % 1.4 % (0.1-2.0); Eosinophils # 0.2 K/mm3 (0.0-0.4); Eosinophils % 3.8 % (0.1-12.0); Hematocrit 47.4 % (37.0-47.0); Hemoglobin 15.4 g/dL (12.2-16.2); Lymphocytes # 2.8 K/mm3 (0.7-4.5); Lymphocytes % 50.6 % (10-50); Mean Corpuscular HGB Conc 32.4 g/dL (31.8-35.4); Mean Corpuscular Volume 107.8 fl (81-99); Mean Platelet Volume 8.2 fl (7.4-10.4); Monocytes # 0.3 K/mm3 (0.1-1.0); Neutrophils # 2.1 K/mm3 (1.8-7.8); Neutrophils % 38.3 % (37.0-80.0); Platelet Count 340 K/mm3 (142-424); Red Cell Distribution Width 14.6 % (11.5-17.5); White Blood Count 5.5 K/mm3 (4.8-10.8)
[2023-10-27 19:28] LABS: MANUAL DIFFERENTIAL MANUAL DIFFERENTIAL (MANUAL DIFF)
[2023-10-27 19:30] LABS: Chloride 105 mmol/L (98-107); Sodium 139 mmol/L (136-145)
[2023-10-27 19:33] LABS: Alanine Aminotransferase 14 U/L (12-78); Albumin Level 4.1 g/dl (3.5-5.0); Albumin/Globulin Ratio 1.5 (1.1-1.8); Alkaline Phosphatase 116 U/L (38-126); Aspartate Amino Transferase 26 U/L (14-36); Bilirubin,Total 0.2 mg/dl (0.2-1.3); Blood Urea Nitrogen 6 mg/dl (7-17); Carbon Dioxide 31 mmol/L (22.0-30.0); Cholesterol 235 mg/dl (140-200); Estimated Glomerular Filt Rate 90 ml/min (>60); GFR (African American) 109 ML/MIN (>60); Globulin 2.8 g/dL (1.3-3.2); Total Protein,Serum 6.9 g/dl (6.3-8.2); Triglycerides 238 mg/dl (30-150); VLDL Cholesterol 48 mg/dL (0-40)
[2023-10-27 19:34] LABS: Chol/HDL Ratio 6.9 (1-3.5); Glucose 98 mg/dl (74-100); HDL Cholesterol 34 mg/dl (40-60)
[2023-10-27 19:51] LABS: Direct LDL Cholesterol 138.53 mg/dL (100-129)
[2023-10-27 19:54] LABS: 25-OH Vitamin D, Total 28.1 ng/mL (30-100)
[2023-10-27 20:04] LABS: Thyroid Stimulating Hormone 1.75 uIU/mL (0.465-4.68)
[2023-10-27 20:39] LABS: Eosinophils % 4 % (0-3); Lymphocytes % 50 % (10-50); Monocytes % 7 % (2-9); Neutrophils % 39 % (42-76); Total Cells Counted 100
[2023-10-27 20:40] LABS: Macrocytosis 3+; Platelet Estimate Normal
== END 2023-10-27 23:59 ==
LOC: LAB.DROPOF 22:03
PROVIDERS: PCP Nurse Practitioner Family; Visit Provider Nurse Practitioner Family
DX: R53.83 Other fatigue (principal); E78.5 Hyperlipidemia, unspecified; E55.9 Vitamin D deficiency, unspecified; Z68.24 Body mass index [BMI] 24.0-24.9, adult; Z79.899 Other long term (current) drug therapy
CPT/HCPCS: 80053; 80061; 82306; 84443; 85007; 85025

== ENCOUNTER 2023-11-17 12:47 | Outpatient (CLI) | payer MEDICARE, SELFPAY ==
--- NOTE | 2023-11-17 12:48 | MR_ITS ---
FINAL REPORT CLINICAL HISTORY: Neck Pain numbness in fingertips in right right headache COMPARISON: None FINDINGS: Multiplanar MR imaging of the cervical spine was performed without contrast. On the sagittal T2-weighted images, disc degeneration is seen throughout. There is no evidence of fracture. The vertebral alignment is normal. The cervical spinal cord has an unremarkable appearance without evidence of mass, edema or syrinx. The cervicomedullary junction is normal. C2-3: There is no significant canal stenosis or neural foraminal narrowing. C3-4: There is no significant canal stenosis or neural foraminal narrowing. C4-5: An annular bulge is present with a right uncovertebral osteophyte, and a small central disc protrusion. There is moderate right neural foraminal narrowing. C5-6: An annular bulge is present with uncovertebral osteophytes, severe right and moderate left neural foraminal narrowing. There is a small central disc protrusion, and mild canal stenosis with an AP canal diameter of 9 mm. C6-7: Disc osteophyte complex is present with severe bilateral neural foraminal narrowing, and mild canal stenosis with an AP canal diameter of 8 mm. C7-T1: There is no significant canal stenosis or neural foraminal narrowing. IMPRESSION: Multilevel cervical disc disease, most severe at the C5-6 and C6-7 levels with mild canal stenosis and moderate to severe bilateral neural foraminal narrowing. Reviewed, Interpreted and Dictated by Gómez Flores III, MD Transcribed by Verónica Tejeda Authenticated and [facility]
== END 2023-11-17 23:59 | disposition home or self-care (01) ==
LOC: RAD 12:48
PROVIDERS: PCP Nurse Practitioner Family; Visit Provider Nurse Practitioner Family
DX: M54.2 Cervicalgia (principal); S14.9XXA Injury of unspecified nerves of neck, initial encounter; M54.50 Low back pain, unspecified
CPT/HCPCS: 72141; 76376

== ENCOUNTER 2024-01-20 11:03 | Outpatient (CLI) | payer MEDICARE, SELFPAY | END 2024-01-20 23:59 | disposition home or self-care (01) | LOC: LAB.DROPOF 01-21 11:04 | PROVIDERS: Visit Provider Family Medicine | DX: N39.0 Urinary tract infection, site not specified (principal); B96.20 Unspecified Escherichia coli [E. coli] as the cause of diseases classified elsewhere | CPT/HCPCS: 87086; 87088; 87186 ==

== ENCOUNTER 2024-02-16 12:24 | Emergency (ER) | payer MEDICARE, OTHER, SELFPAY ==
--- NOTE | 2024-02-16 12:24 | ECG_ITS ---
APPROVED REPORT Exam: Resting ECG HR:47 bpm ECG Measurements Heart Rate 47 AXES VT 188 P 71 QRSd 99 QRS 86 QT 468 T 73 QTc 432 Conclusion Sinus bradycardia Electronically signed by : DARIUS MCDONALD, 02/16/2024 16:03:56
--- NOTE | 2024-02-16 13:26 | PC.NURSE ---
Addendum entered by Jill Forrest RN 05/12/24 07:33: wrong registration Addendum entered by Jill Forrest RN 05/12/24 07:29: Information being amended below, patient inaccurately registered. Original Note: This pt was inaccurately registered for this visit. Medical Records aware
--- NOTE | 2024-02-16 13:36 | PC.NURSE ---
Addendum entered by Jill Forrest RN 05/12/24 07:33: wrong registration Addendum entered by Jill Forrest RN 05/12/24 07:30: Information being amended below, patient inaccurately registered. Original Note: @ 1330- Dr. Douglass at bedside and asked for stroke alert to be called. @ 1331- auto electrical technician aware of scans, ct scan has a pt on it at this time and will collect pt raz. @ 1334- FS OBTAINED 170, PREPARING FOR 2ND iv LINE. pHARMACY ASKED OT PREPARE A CARDENE GTT. @ 1336- PT TAKEN TO CT ROOM
== END 2024-02-17 16:16 | disposition home or self-care (01) ==
PROVIDERS: Emergency Provider Emergency Medicine
DX: Z00.00 Encounter for general adult medical examination without abnormal findings (principal)
CPT/HCPCS: 93005; 99211

== ENCOUNTER 2024-04-25 09:51 | Day surgery (SDC) | payer MEDICARE, OTHER, SELFPAY ==
[2024-04-19 15:18] VITALS: BMI 23.6
[2024-04-25] MEDS: LACTATED RINGERS 1000ML 1,000 ML 25 ML IV (10:01)
[2024-04-25 10:03] VITALS: BP 137/75; PULSE 80; RESP 18; TEMP 36.6; O2SAT 99
--- NOTE | 2024-04-25 10:07 | P.PNANES_ITS ---
[facility] Disclaimer: The information contained in this section may have been updated after the patient was seen, as this information can be updated by other users. Medical History Tachycardia COPD (chronic obstructive pulmonary disease) Rheumatoid arthritis Surgical History History of hysterectomy History of History of cardiac cath Family History Mother Cancer Father Cancer Social History Smoking Status: Current every day smoker tobacco type: cigarettes packs per day: 1 second hand exposure: No alcohol intake: never substance use type: denies use current occupational status: other Travel in the last 8 weeks: None household members: other housing: other current occupational exposures/hazards: No caffeine: Yes [facility] Anesthesia Checklist Patient Identification Patient Identification: Arm Band and Verbal (Name & ) Structural Data Admitted From: Home Planned Operative Procedure/s: EGD/Colonoscopy Consent for Planned Operative Procedure(s) Verified: Yes Verified Documents: Surgical Consent and History and Physical NPO Status Verified Time NPO: 00:00 Additional verifications Anesthesia Reactions: No Hx Blood Transfusions: No Blood Transfusion Reaction: No Airway Assessment Mallampati Score:: Class IV C-Spine Mobility Assessed: Yes Dentition: Dentures-poor fitting (Removed) Neurological Assessment Level of Consciousness: Awake Hx Seizures: No Numbness or tingling in extremities: No Anesthesia Plan Anesthesia Risk discussed: Yes ASA Class: II Anesthesia Type: MAC
[2024-04-25 10:26] VITALS: O2SAT 99
--- NOTE | 2024-04-25 10:47 | P.PCN_ITS ---
[facility] Procedure Note Date: 04/25/24 Time: 10:47 Procedure Note:: Upper Endoscopy Procedure Report: Esophagogastroduodenoscopy with cold biopsies and TTS balloon dilation Endoscopost: Umberto Garcia II, MD Referring Physician: MARIAN Arevalo Date of Procedure: April 25, 2024 Equipment: Olympus GIF 190 standard upper endoscope Sedation: MAC sedation Indications: Mrs. Tarango is a 49-year-old female who is here for diagnostic upper endoscopy. She does report dysphagia to breads and meats and large tablets/pills. She does report some heartburn and reflux. This is her first upper endoscopy. She does get some occasional dyspepsia. 3 to 4 months ago she had bright red blood per rectum that filled the commode. The patient's lab work from October 2023 showed hemoglobin 15.4 and hematocrit 47.4. The patient's labs in October 2023 showed normal liver chemistries and normal lipase (72). Procedure: Prior to the procedure, a history and physical exam was performed, and patient's medications and allergies were reviewed. The risks, benefits and alternatives of the sedation and procedure were discussed with the patient. All questions were answered and informed consent was obtained. The patient was brought to the procedure room. Patient identification and proposed procedure were verified by the physician and the nurse. The patient was placed in a left lateral decubitus position and the scope was passed under direct vision. Throughout the procedure, the patient's blood pressure, pulse, and oxygen saturations were monitored continuously. The upper GI endoscopy was accomplished without difficulty. The patient tolerated the procedure well. Findings: The scope was passed directly into the upper esophagus and advanced to the third portion of the duodenum. The post bulbar duodenum and duodenal bulb were normal with normal mucosa and conniventes. There was mild duodenal patchy erythema/edema and biopsies were obtained from the duodenum bulb and first portion. The scope was withdrawn through a normal duodenal bulb and pylorus into the stomach. There was some bile reflux with mild linear reactive gastropathy of the antrum. There was some mild atrophy of the body and fundus. The remainder of the antrum, body and fundus of the stomach were grossly normal. Upon retroflexion there was no hiatal hernia. 2 biopsies were taken in the antrum and along the lesser curvature for histology to rule out gastritis and/or H pylori. The scope was then withdrawn into the esophagus. There was no evidence of reflux esophagitis or Hill's. Biopsies were taken from the GE junction. There were tertiary contractions and evidence of mild to moderate esophageal dysmotility. The entire esophagus was dilated to 60 Afghan/20 mm with a TTS hydrostatic balloon. There were no strictures, rings or webs of the esophagus. The remainder of the esophageal mucosa was normal. Impression: 1. Mild esophageal dysmotility with nonerosive GERD status post dilation to 20 mm 2. Bile reflux with mild to moderate reactive gastropathy and mild gastric atrophy Plan: I will follow-up the biopsies and proceed with diagnostic colonoscopy.
--- NOTE | 2024-04-25 10:55 | HMH.PROCNOTE ---
[facility] Procedure Note Date: 04/25/24 Time: 10:56 Procedure Note:: Flexible Sigmoidoscopy Procedure Report: Aborted colonoscopy Endoscopist: Umberto Garcia II, MD Referring physician: MARIAN Arevalo Date of Procedure: April 25, 2024 Equipment: Olympus 180 variable stiffness pediatric colonoscope Sedation: MAC sedation Indication: Mrs. Tarango is a 49-year-old female who is here for diagnostic colonoscopy. She does state that she had bright red blood that filled the commode 3 to 4 months ago. She has had no hematochezia or melena. She does have some chronic constipation. She does get some periumbilical abdominal pain and dyspepsia. Her hemoglobin and hematocrit earlier this year were normal. The patient reports no weight loss or family history of colon cancer. The patient does state that she had a colonoscopy 2 to 3 years ago in [place] but does not know the results. Procedure: Prior to the procedure, a history and physical exam was performed, and patient's medications and allergies were reviewed. The risks, benefits and alternatives of the sedation and procedure were discussed with the patient. All questions were answered and informed consent was obtained. The patient was brought to the procedure room. Patient identification and proposed procedure were verified by the physician and the nurse. The patient was placed in a left lateral decubitus position and the scope was passed under direct vision. Throughout the procedure, the patient's blood pressure, pulse, and oxygen saturations were monitored continuously. The colonoscopy was accomplished without difficulty. The patient tolerated the procedure well. Findings: The colonoscope was introduced through the anal canal into the rectum and advanced to 35 to 40 cm. There was abundant brown liquid stool throughout impairing visualization of the colonic mucosa. The preparation was inadequate so the procedure was aborted. Lower sigmoid and rectum are grossly normal. Impression: 1. Unprepped colonoscopy Plan: I will discuss this with the patient and family and recommend repeat colonoscopy with improved bowel preparation soon. We may add Linzess to her bowel regimen with 3 L preparation.
[2024-04-25 10:59] VITALS: BP 100/64; PULSE 78; RESP 16; TEMP 36.4; O2SAT 96
[2024-04-25 11:09] VITALS: BP 101/55; PULSE 70; RESP 16; O2SAT 99
[2024-04-25 11:19] VITALS: BP 109/67; PULSE 74; RESP 16; O2SAT 100
[2024-04-25 11:29] VITALS: BP 103/63; PULSE 69; RESP 16; O2SAT 98
== END 2024-04-25 12:06 | disposition home or self-care (01) ==
PROVIDERS: PCP Nurse Practitioner Family; Visit Provider Internal Medicine Gastroenterology
PROC: 0DJ08ZZ Inspection of Upper Intestinal Tract, Via Natural or Artificial Opening Endoscopic (ICD-10-PCS; CPT 43235; principal; 2024-04-25 11:00)
DX: R13.10 Dysphagia, unspecified (principal); R10.13 Epigastric pain; K62.5 Hemorrhage of anus and rectum; K21.9 Gastro-esophageal reflux disease without esophagitis; K31.9 Disease of stomach and duodenum, unspecified; K29.40 Chronic atrophic gastritis without bleeding
CPT/HCPCS: 43239; 43249; 45378; 88305; C1726; J7120

== ENCOUNTER 2024-08-02 08:55 | Outpatient (CLI) | payer MEDICARE, OTHER, SELFPAY ==
--- NOTE | 2024-08-02 08:56 | CT_ITS ---
FINAL REPORT CLINICAL HISTORY: lung cancer screening CURRENT SMOKER 1PD X30 YEARS,COPD COMPARISON: 06/16/2022 FINDINGS: CT CHEST LOW DOSE SCREENING HISTORY: Screening exam for lung cancer. Current smoker, 30 pack year smoking history DOSE: CTDIvol: 2.90 mGy, DLP: 96.38 mGy*cm TECHNIQUE: Axial CT without IV contrast administration using low dose protocol. This study was performed with techniques to keep radiation doses as low as reasonably achievable, (ALARA). Individualized dose reduction techniques using automated exposure control or adjustment of mA and/or kV according to the patient's size were employed. No acute lung disease is present . There are calcified nodules without suspicious noncalcified nodules. No pleural or pericardial effusion is seen . No adenopathy or mass lesion is present . IMPRESSION: 1. No evidence of lung cancer LUNG RADS CATEGORY 1 RECOMMENDATION: 12 month LDCT follow up Reviewed, Interpreted and Dictated by Lucy Donaldson MD Transcribed by Erika Posada Authenticated and [facility]
[2024-08-02] MEDS: ALBUTEROL 0.083% 2.5 MG/3 ML NEB IH (10:34)
== END 2024-08-02 23:59 | disposition home or self-care (01) ==
LOC: RAD 08:56
PROVIDERS: PCP Nurse Practitioner Family; Visit Provider Family Medicine
DX: F17.210 Nicotine dependence, cigarettes, uncomplicated (principal); R06.2 Wheezing; J44.1 Chronic obstructive pulmonary disease with (acute) exacerbation
CPT/HCPCS: 71271; 94060; 94726; 94729; J7613

== ENCOUNTER 2024-09-02 15:22 | Outpatient (CLI) | payer MEDICARE, OTHER, SELFPAY ==
--- NOTE | 2024-09-02 15:27 | US_ITS ---
FINAL REPORT CLINICAL HISTORY: leg fatigue, weakness, decreased distal pulses, current smoker, HLD, bilateral claudication, bilateral rest pain. Left great toe and 5th digit became discolored and purple in color the longer she laid flat on table. COMPARISON: None FINDINGS: ANKLE-BRACHIAL PRESSURE INDICES Pressure indices are as follows: RIGHT LOWER EXTREMITY: Ankle-brachial pressure index: 0.72 Comments: Moderately depressed LEFT LOWER EXTREMITY: Ankle-brachial pressure index: 0.65 Comments: Moderately depressed CONCLUSION: Moderately depressed ankle-brachial indices noted in both lower extremities, consistent with moderate changes of peripheral arterial disease. Reviewed, Interpreted and Dictated by Frankie Clark MD Transcribed by Verónica Tejeda Authenticated and [facility]
== END 2024-09-02 23:59 | disposition home or self-care (01) ==
LOC: RT 15:23
PROVIDERS: PCP Family Medicine; Visit Provider Family Medicine
DX: I73.9 Peripheral vascular disease, unspecified (principal); R09.89 Other specified symptoms and signs involving the circulatory and respiratory systems
CPT/HCPCS: 93923

== ENCOUNTER 2024-09-08 10:55 | Outpatient (CLI) | payer MEDICARE, OTHER, SELFPAY ==
[2024-09-08 11:23] LABS: Basophils % 0.7 % (0.1-2.0); Eosinophils # 0.1 K/mm3 (0.0-0.4); Eosinophils % 2.5 % (0.1-12.0); Hematocrit 44.3 % (37.0-47.0); Lymphocytes # 2.7 K/mm3 (0.7-4.5); Lymphocytes % 47.6 % (10-50); Mean Corpuscular HGB Conc 33.9 g/dL (31.8-35.4); Mean Corpuscular Hemoglobin 33.3 pg (27.0-31.2); Mean Corpuscular Volume 98.4 fl (81-99); Monocytes # 0.5 K/mm3 (0.1-1.0); Monocytes % 9.3 % (1.7-9.3); Neutrophils # 2.3 K/mm3 (1.8-7.8); Neutrophils % 39.7 % (37.0-80.0); Platelet Count 248 K/mm3 (142-424); Red Cell Distribution Width 13.7 % (11.5-17.5); White Blood Count 5.7 K/mm3 (4.8-10.8)
[2024-09-08 11:36] LABS: Albumin Level 3.9 g/dl (3.5-5.0); Chloride 102 mmol/L (98-107); Potassium 4.3 mmoL/L (3.5-5.1); Sodium 140 mmol/L (136-145)
[2024-09-08 11:38] LABS: Blood Urea Nitrogen 6 mg/dl (7-17); Estimated Glomerular Filt Rate 89 ml/min (>60); GFR (African American) 108 ML/MIN (>60)
[2024-09-08 11:39] LABS: Alanine Aminotransferase 23 U/L (12-78); Alkaline Phosphatase 94 U/L (38-126); Anion Gap 10.3 mEq/L (5-15); Aspartate Amino Transferase 30 U/L (14-36); Bilirubin,Indirect 0.2 mg/dL (0.0-0.9); Bilirubin,Total 0.2 mg/dl (0.2-1.3); Bilirubin,Unconjugated 0.2 mg/dL (0.0-1.1); Carbon Dioxide 32 mmol/L (22.0-30.0); Chol/HDL Ratio 7.4 (1-3.5); Cholesterol 222 mg/dl (140-200); Glucose 99 mg/dl (74-100); HDL Cholesterol 30 mg/dl (40-60); Magnesium 1.8 mg/dl (1.6-2.3); Total Protein,Serum 6.5 g/dl (6.3-8.2); Triglycerides 179 mg/dl (30-150); VLDL Cholesterol 36 mg/dL (0-40)
[2024-09-08 11:50] LABS: Direct LDL Cholesterol 162.87 mg/dL (100-129)
[2024-09-08 11:55] LABS: Free T4 (Free Thyroxine) 0.93 ng/dl (0.78-2.19)
[2024-09-08 12:10] LABS: Thyroid Stimulating Hormone 1.77 uIU/mL (0.465-4.68)
== END 2024-09-08 23:59 | disposition home or self-care (01) ==
LOC: LAB 10:55
PROVIDERS: PCP Family Medicine; Visit Provider Physician Assistant
DX: I73.9 Peripheral vascular disease, unspecified (principal); F17.200 Nicotine dependence, unspecified, uncomplicated; R06.09 Other forms of dyspnea; R07.89 Other chest pain; R94.31 Abnormal electrocardiogram [ECG] [EKG]; J44.9 Chronic obstructive pulmonary disease, unspecified
CPT/HCPCS: 36415; 80048; 80061; 80076; 83735; 84439; 84443; 85025

== ENCOUNTER 2025-04-21 20:47 | Emergency (ER) | payer MEDICARE, SELFPAY ==
[2025-04-21 21:04] VITALS: BP 155/89; PULSE 103; RESP 16; TEMP 37; O2SAT 96; BMI 24.5
--- OUTSIDE RECORDS SUMMARY | 2025-04-21 21:07 | XMS_ITS | Referral Summary ---
Author Organization [employer] ([place], [place], [place], [place]) Address [address] [place] [address] Care Team Providers Care Surgical Technology Instructor Name Role Phone Unavailable Primary Care Provider Unavailabl e Allergies Active Allergy Reactions Criticality Noted Date Comments Ciprocinonide Nausea And Vomiting 07/09/2011 Ciprofloxacin 06/05/2017 Sulfa (Sulfonamide Antibiotics) Nausea And Vomiting 07/09/2011 Medications buprenorphine-n aloxone (SUBOXONE) 2-0.[address] under the tongue daily This medication has the potential to cause dental problems. After the medication has completely dissolved in your mouth, gently rinse your teeth and gums with water and then swallow, and also wait at least 1 hour before brushing your teeth. Be sure to let your dentist know that you are on this medication; regular dental checkups are encouraged. . Active gabapentin (NEURONTIN) 800 MG tablet Take 800 mg by mouth 3 (three) times daily. Active amitriptyline (ELAVIL) 50 MG tablet Take 50 mg by mouth nightly. Active Social History Tobacco Use Types Packs/Day Years Used Date Smoking Tobacco: Every Day Cigarettes Smokeless Tobacco: Never Tobacco Cessation:Ready to Q uit: Not Asked; Counseling Given: Not Answered Alcohol Use Standard Drinks/Week Comments Never 0 (1 standard drink = 0.6 oz pur e alcohol) Family and Community Support Answer Tito e Recorded Help with Day to Day Activities Not on file 08/28/2023 Feeling Lonely or Isolated Not on file 08/28 Educational Attainment Answer Date Everett rded Speak language other than Turkish at home Not on file 08/28/2023 Want help with school or training Not on file 08/28/2023 Substance Use Answer Date Recorded Used prescription meds for non-medical reasons N ot on file 08/28/2023 Used illegal drugs past 12 months Not on file 08/28/2023 Comments No Sex and Gender Information Value Date Recorded Sex Assigned at Not on file Legal Sex Female 3:10 PM CDT Gender Identity Not on file Sexual Orientation Not on file Last Filed Vital Signs Vital Sign Reading Time Taken Comments Blood Pressure 147/83 12/04/2024 5:07 PM EDT Pulse 99 12/04/2024 5:07 PM EDT Temperature 36.6 C (97.8 F) 12/04/2024 5:07 PM EDT Respiratory Rate 16 12/04/2024 5:07 PM EDT Oxygen Saturation 94% 12/04/2024 5:07 PM EDT Inhaled Oxygen Concentration - - Weight 59 kg (130 lb) 12/04/2024 5:07 PM EDT Height 154.9 cm (5' 1 ) 12/04/2024 5:07 PM EDT Body Mass Index 24.56 12/04/2024 5:07 PM EDT Plan of Treatment Not on file Insurance MEDICARE PART A ONLY
--- OUTSIDE RECORDS SUMMARY | 2025-04-21 21:07 | XMS_ITS | Clinical Summary ---
Author Organization [facility] Address [address] [place] [id number] Care Team Providers Care Biodiesel Engine Specialist Name Role Phone Marcelle Padilla APRN Primary Care Provider [phone] Social History Tobacco Use Types Packs/Day Years Used Date Smoking Tobacco: Never Assessed Comments Unknown Sex and Gender Information Value Date Recorded Sex Assigned at Not on file Legal Sex Female 8:37 PM EDT Gender Identity Not on file Sexual Orientation Not on file Last Filed Vital Signs Vital Sign Reading Time Taken Comments Blood Pressure 137/80 01/19/2023 12:37 PM EDT Pulse 75 01/19/2023 12:37 PM EDT Temperature - - Respiratory Rate - - Oxygen Saturation - - Inhaled Oxygen Concentration - - Weight 57.2 kg (126 lb) 01/19/2023 12:37 PM EDT Height 154.9 cm (5' 1 ) 01/19/2023 12:37 PM EDT Body Mass Index 23.81 01/19/2023 12:37 PM EDT Plan of Treatment Health Maintenance Due Date Last Done Comments [facility]-Depression Screening 1976 [facility]-/Child/Adol SDOH Screenings 1976 [facility]- SDOH Screenings 02/19/1994 [facility]-Adult SDOH Screenings 02/19/1994 [facility]-Hepatitis B Vaccines (1 of 3 - 19+ 3-dose series) 02/19/1995 [facility]-Pap Smear 02/19/1997 [facility]-Cervical Cancer Screening 02/19/2006 [facility]-HPV/Cotest 02/19/2006 CT Colonography 02/19/2021 Colonoscopy 02/19/2021 FIT-DNA 02/19/2021 FIT 02/19/2021 FOBT 02/19/2021 Sigmoidoscopy 02/19/2021 [facility]-Colorectal Cancer Screening 02/19/2021 [facility]-DTaP,Tdap,and Td Vaccine s (2 - Td or Tdap) 03/01/2024 03/01/2014 [id number] Vaccine ( season) 2025 12/26/2020, 11/27/2020 [facility]-Influenza Vaccine (#1) 04/10/202506/20, 09/01/2019, 04/23/2018 [facility]-Zoster Vaccines (1 of 2) 02/19/2026 HPV Vaccines Aged Out No longer eligi ble based on patient's age to complete this topic [facility]-HIB Vaccines Aged Out No longer e ligible based on patient's age to complete this topic [facility]-Hepatitis A Vaccines Aged Out No longer eligible based on patient's age to complete this topic [facility]-IPV Vaccines Aged Out No longer e ligible based on patient's age to complete this topic [facility]-Pneumococcal Vaccine: Pediatrics (0 to 5 Years) and At-Risk Patients (6 to 49 Years) Aged Out No longer eligible b ased on patient's age to complete this topic [facility]-Rotavirus Vaccines Aged Out No lo nger eligible based on patient's age to complete this topic Insurance [place]ICAID-[place] MEDICARE Care Teams Biodiesel Engine Specialist Relationship Specialty Start Date End Date Marcelle Padilla APRN [address] [place] [address] PCP - General 12/21/20
--- OUTSIDE RECORDS SUMMARY | 2025-04-21 21:07 | XMS_ITS | Clinical Summary ---
Author Organization [employer] ([place], [place], [place]) Address [address] [place] [address] Care Team Providers Care Pile Driver Name Role Phone Unavailable Primary Care Provider [...] Date Everett rded Speak language other than Japanese at home Not on file 08/28/2023 Want [...] 12/04/2024 5:07 PM EDT Plan of Treatment Health Maintenance Due Date Last Done Comments CT Colonography 1976 Colonoscopy 1976 Colorectal Cancer Screening 1976 FOBT/FIT 1976 Fit-DNA (Cologuard) 1976 Sigmoidoscopy 1976 Depression Screening (12+) 1988 Tobacco Cessation Counseling and Screening (12+) 1988 HIV Screening 02/19/1991 Hepatitis C Screening 02/19/1994 Pneumococcal Vaccine: 0-49 Y ears (1 of 2 - PCV) 02/19/1995 Pap Smear 02/19/1997 Breast Cancer Screening 2016 Lipid Panel 02/19/2021 DTAP/TDAP/TD VACCINES (2 - Td or Tdap) 03/01/2024 COVID-19 VACCINE (3 - season) 2025, 11/27/2020 Influenza Vaccine (#1) 2025 Insurance MEDICARE PART A ONLY
--- OUTSIDE RECORDS SUMMARY | 2025-04-21 21:07 | XMS_ITS | Clinical Summary ---
Author Organization [facility] Address [address] [place] [id number] Care Team Providers Care Behavioral Health Specialist Name Role Phone Marcelle Padilla KAYA Primary Care Provider [phone] Allergies Active Allergy Reactions Criticality Noted Date Comments Ciprofloxacin 06/05/2017 Sulfa Antibiotics 06/05/2017 Medications gabapentin (NEURONTIN) 100 MG capsule Take 800 mg by mouth 3 (Three) Times a Day. Active buprenorphine-n aloxone (SUBOXONE) 8-2 MG per SL tablet Place 1 tablet under the tongue 2 (Two) Times a Day. Active doxycycline (DORYX) 100 MG enteric coated tablet Take 1 tablet by mouth 2 (Two) Times a Day. 20 tablet 06/05/2017 Active albuterol (PROVENTIL HFA;VENTOLIN HFA) 108 (90 Base) MCG/ACT inhaler Inhale 2 puffs 4 (Four) Times a Day. 1 inhaler 06/05/2017 Active MethylPREDNISol one (MEDROL, JOSELITO,) 4 MG tablet Take as directed on package instructions. 21 tablet 06/05/2017 Active Social History Tobacco Use Types Packs/Day Years Used Date Smoking Tobacco: Every Day Cigarettes Smokeless Tobacco: Never Alcohol Use Standard Drinks/Week Comments No 0 (1 standard drink = 0.6 oz pur e alcohol) Abuse Screen Answer Date Recorded Unsafe at Home or Work/School Not on file Feels Threatened by Someone? Not on file 04/2023 Does Anyone Keep You from Co ntacting Others or Doint Things Outside the Home? Not on file 05/18/2023 Physical Sign of Abuse Present Not on file 1 Housing Stability Answer Date Recorded Current Living Arrangements Not on file 04/2023 Potentially Unsafe Housing Conditions Not on arun e 05/18/2023 Family and Community Support Answer Tito e Recorded Help with Day-to-Day Activities Not on file 05/18/2023 Lonely or Isolated Not on file 05/18/2023 Employment Answer Date Recorded Do you want help finding or keeping work or a salvador b? Not on file 05/18/2023 Disabilities Answer Date Recorded Concentrating, Remembering, or Making Decisions Difficulty Not on file 05/18/2023 Doing Errands Independently Difficulty Not on fi le 05/18/2023 Education Answer Date Recorded Help with school or training? Not on file Preferred Language Not on file 05/18/2023 Comments Unknown Sex and Gender Information Value Date Recorded Sex Assigned at Not on file Legal Sex Female 1:30 PM EDT Gender Identity Not on file Sexual Orientation Not on file Last Filed Vital Signs Vital Sign Reading Time Taken Comments Blood Pressure 100/74 10/05/2017 12:00 AM EST Pulse 90 10/04/2017 11:56 PM EST Temperature 36.7 C (98 F) 10/05/2017 12:15 AM EST Respiratory Rate 16 10/05/2017 12:15 AM EST Oxygen Saturation 95% 10/05/2017 12:00 AM EST Inhaled Oxygen Concentration - - Weight 59 kg (130 lb) 10/04/2017 8:46 PM EST Height 154.9 cm (5' 1 ) 10/04/2017 8:46 PM EST Body Mass Index 24.56 10/04/2017 8:46 PM EST Plan of Treatment Health Maintenance Due Date Last Done Comments ANNUAL PHYSICAL 1975 Annual Gynecologic Pelvic an d Breast Exam 1975 HEPATITIS C SCREENING 1976 TDAP/TD VACCINES (1 - Tdap) 02/19/1995 MAMMOGRAM 2016 COLOGUARD 02/19/2021 COLON CANCER SCREENING 5 YEA R SIGMOIDOSCOPY 02/19/2021 COLONOSCOPY 02/19/2021 COLORECTAL CANCER SCREENING 02/19/2021 CT COLONOGRAPHY 02/19/2021 FECAL OCCULT BLOOD TEST 02/19/2021 FIT Testing (1 year) 02/19/2021 COVID-19 Vaccine ( - 2023-2 5 season) 2025 INFLUENZA VACCINE 05/10/2025 Pneumococcal Vaccine 0-49 Aged Out No longer eligible based on patient's age to complete this topic Insurance MEDICARE A & B Member Subscriber Plan / Payer (Ef fective 2003-Present) Name:Teresa Tarango Member ID:[id number] Relation to Subscriber:Self Name:Teresa Tarango Subscriber ID:[id number] Payer ID:[id number] Group ID:Not on file Type:Not on file Address: [address] [place] [id number] [place] Care Teams Behavioral Health Specialist Relationship Specialty Start Date End Date Marcelle Padilla APRN [facility] [place] [address] [place] [address] [place] [id number] PCP - General Family Medicine 06/05/17
--- OUTSIDE RECORDS SUMMARY | 2025-04-21 21:07 | XMS_ITS | Patient Health Record ---
Author Organization [facility] Address [address] [place] [address] Care Team Providers Care Wood Tank Erector Name Role Phone TIMMY LICONA Primary Care Provider [phone] Timmy Licona MD Unavailable Unavailable Reason For Referral No Information Medications Medication SIG (Take, Route, Fr equency, Duration) Notes Start Date End Date Status Lyrica 1 (one) tablet(s) or 12/05/2011 08/10/18 Active Flexeril 12/05/2011 Active Meloxicam 12/05/2011 Active Mobic 12/05/2011 Active Polyethylene Glycol 12/05/2011 0 Active Problems Problem Type SNOMED Code ICD Code Onset Dates Problem Status W/U Status Risk Notes Problem Esophageal reflux (816949875) Esophageal reflux (530.81) 2 Active confirmed Vinny-Bin Problem Muscle pain (84323964) Unspecified myalgia and myositis (729.1) 2 Active confirmed Vinny-Bin Plan Of Treatment No Information Insurance Providers Payer Name Payer Address Payer Phone Subscriber Number Group Number Insured Name Patient Relationship to Insured Coverage Start Date Coverage End Date Medicare Part [place] [phone] [id number] Teresa Tarango Self - patient is the insured Medical (General) History Surgical History Surgery Date(Month/Year) No Surgeries As Of Todays Date
--- NOTE | 2025-04-21 21:36 | PC.NURSE ---
Patient in room and was assisted to the restroom.
[2025-04-21 22:35] LABS: Hepatitis C Ab Qual. W/ RFX NEGATIVE (Negative)
[2025-04-21] MEDS: KETOROLAC 15MG/ML VIAL 15 MG IV (22:47)
--- NOTE | 2025-04-21 22:48 | CT_ITS ---
PROCEDURE INFORMATION: Exam: CT Pelvis Without Contrast, Skeleton Exam date and time: 04/21/2025 11:23 PM Age: 50 years old Clinical indication: Pelvic pain; Additional info: Sacral/posterior hip pain TECHNIQUE: Imaging protocol: Computed tomography of the pelvis without contrast. Exam focused on the skeleton. Radiation optimization: All CT scans at this facility use at least one of these dose optimization techniques: automated exposure control; mA and/or kV adjustment per patient size (includes targeted exams where dose is matched to clinical indication); or iterative reconstruction. COMPARISON: CT LUMBAR SPINE WO CON 04/21/2025 11:20 PM FINDINGS: Appendix: No CT evidence of acute appendicitis. Reproductive: Hysterectomy Urinary bladder: The urinary bladder is not distended and not well evaluated. Bones/joints: No evidence of acute fracture. Soft tissues: Smallfat containing umbilical hernia. IMPRESSION: No evidence of acute fracture.
--- NOTE | 2025-04-21 22:48 | CT_ITS ---
PROCEDURE INFORMATION: Exam: CT Lumbar Spine Without Contrast Exam date and time: 04/21/2025 11:20 PM Age: 50 years old Clinical indication: Low back pain TECHNIQUE: Imaging protocol: Computed tomography of the lumbar spine without contrast. Radiation optimization: All CT scans at this facility use at least one of these dose optimization techniques: automated exposure control; mA and/or kV adjustment per patient size (includes targeted exams where dose is matched to clinical indication); or iterative reconstruction. COMPARISON: CR XR LUMBAR SPINE 2-3V 03/25/2019 11:21 AM FINDINGS: Bones/joints: Degenerative changes most prominent at L5/S1. Straightening of lumbar lordosis, possibly positional or muscle spasm. Visualized vertebral body heights are preserved. Spleen: Calcified splenic granulomas Vasculature: Vascular calcifications Soft tissues: See Bones/joints finding. IMPRESSION: Visualized vertebral body heights are preserved. If symptoms persist or spinal cord compression or nerve root compression is a concern clinically, correlation with MRI is necessary.
[2025-04-21 22:50] VITALS: BP 129/110; PULSE 95; RESP 13; O2SAT 99
[2025-04-21] MEDS: LIDOCAINE 5% TRANSDERMAL PATCH 1 EACH TD (22:59)
[2025-04-21] MEDS: METHOCARBAMOL 500MG TABLET 500 MG PO (23:00)
[2025-04-21] MEDS: ONDANSETRON 4MG/2ML VIAL 4 MG IV (23:00)
--- NOTE | 2025-04-21 23:05 | PC.NURSE ---
Pt ambulated to the restroom, voided, patient states she feels empty, nontender to abdomen, post void residual negative, no traceable urine in bladder
--- NOTE | 2025-04-22 01:26 | ED_ITS ---
Discharge Plan Disposition Patient Disposition: Home, Self-Care Condition: Good Prescriptions Prescriptions: New tizanidine 4 mg capsule 4 mg PO Q8H 7 Days Qty: 21 0RF No Action albuterol sulfate 0.63 mg/3 mL solution for nebulization 0.63 mg INHALATION Q6H Qty: 75 2RF albuterol sulfate 90 mcg/actuation HFA aerosol inhaler See Rx Instructions .ROUTE .COMPLEX Qty: 18 2RF Dose Instruction: inhale 2 puffs by INHALATION route every 4 hours As needed Rx Instructions: inhale 2 puffs by INHALATION route every 4 hours As needed Repatha SureClick 140 mg/mL pen injector 140 mg SQ Q2W Qty: 3 2RF amitriptyline 50 mg tablet See Rx Instructions .ROUTE .COMPLEX Qty: 90 0RF Dose Instruction: take 1 tablet orally at bedtime nightly Rx Instructions: take 1 tablet orally at bedtime nightly aspirin [Adult Low Dose Aspirin] 81 mg tablet,delayed release (DR/EC) 81 mg PO DAILY Qty: 90 2RF atorvastatin 80 mg tablet 80 mg PO DAILY Qty: 90 2RF clopidogrel [Plavix] 75 mg tablet 75 mg PO DAILY Qty: 90 2RF Trelegy Ellipta 100-62.5-25 mcg blister with device 1 inh inhalation DAILY Qty: 60 3RF buprenorphine-naloxone 8-2 mg film 8 ea sublingual DAILY gabapentin 800 mg tablet See Rx Instructions .ROUTE .COMPLEX Qty: 90 1RF Dose Instruction: TAKE ONE TABLET BY MOUTH THREE TIMES DAILY FOR PAIN Rx Instructions: TAKE ONE TABLET BY MOUTH THREE TIMES DAILY FOR PAIN Referrals Follow up/Referrals: [facility] Physical Therapy [Provider Group, Physical Therapy] - See instructions Molly Xie APRN [Primary Care Provider, Family Practice] - See instructions Activity Restrictions/Add. Instructions Additional Instructions/Restrictions: Please citrus picker Tizanidine from [facility] in [place] for continued muscle relaxation. Please call the number listed for physical therapy services. If you have any new or worsening symptoms please return. Clinical Impressions Clinical Impression: Muscle spasm Print Language Print Language: [place] Island[place] Discharge ED Provider: Stoney Garza Adult HPI General Chief complaint: PAIN Stated complaint: Lumbar Region Pain Time Seen by Provider: 04/21/25 22:22 Mode of Arrival: Ambulatory Source of Information: Patient Description of Symptoms (Recalled from ER Triage Doc. by RN): PT presents to the ED for evaluation of lower back pain that started 2 days ago. Denies fall or injury. PT has a dx of bilateral blood clots of both legs. PT is on Plavix. PT requesting no opioids History of Present Illness HPI narrative: This is a 50-year-old female patient, with past medical history of COPD and rheumatoid arthritis, who is presented to the emergency department today for evaluation of lumbosacral pain. Patient states that she has not had any traumatic injuries or falls recently. She states the last time that she had any traumatic injury was approximately 6 months ago. She tells me that over the last 2 days she has developed significant pain in the gluteal region adjacent to the sacrum as well as in the lumbar spine region that has significantly worsened since onset. She states that this pain is rather positional in nature and when she bends over to the right side while in a seated position that this exacerbates her pain. She is not having any lower extremity weakness, no lower extremity sensory changes, no saddle anesthesia, and no urinary retention. She denies flank pain and abdominal pain. She is not having urinary incontinence, urinary frequency, dysuria, or hematuria. Related Data Home Medications ?Medication ?Instructions ?Recorded ?Confirmed buprenorphine 8 mg-naloxone 2 mg 8 ea sublingual DAILY 09/03/23 02/13/25 sublingual film Previous Rx's ?Medication ?Instructions ?Recorded albuterol sulfate 0.63 mg/3 mL 0.63 mg (3 mL) inhalati on Q6H #75 11/14/24 solution for nebulization mL albuterol sulfate 90 mcg/actuation See Rx Instructions .Route 11/14/24 aerosol inhaler .COMPLEX #18 grams amitriptyline 50 mg tablet See Rx Instructions .Route 02/13/25 .COMPLEX #90 tabs aspirin 81 mg tablet,delayed 81 mg PO DAILY #90 tabs 0 02/13/25 release (Adult Low Dose Aspirin) atorvastatin 80 mg tablet 80 mg PO DAILY #90 tabs 03/03 clopidogrel 75 mg tablet (Plavix) 75 mg PO DAILY #90 t abs 02/13/25 evolocumab 140 mg/mL subcutaneous 140 mg SQ Q2W #3 mL 02/13/25 pen injector (Repatha Agustínick) fluticasone fur. 100 mcg-umeclid 1 inh inhalation KENDAL Y #60 ea 02/13/25 62.5 mcg-vilant 25 mcg inhalat.powder (Trelegy Ellipta) gabapentin 800 mg tablet See Rx Instructions .Route 0 04/17/25 .COMPLEX #90 tabs tizanidine 4 mg capsule 4 mg PO Q8H 7 days #21 caps 04/22/25 Allergies Allergy/AdvReac Type Severity Reaction Status Date / Time ciprofloxacin (From CIPRO) Allergy Unknown ITCHING,VOM Verified 02/13/25 14:10 ITING Sulfa (Sulfonamide Allergy Unknown ITCHING Verified 02/13/25 14:10 Antibiotics) (SULFA (SULFONAMIDE ANTIBIOTICS)) [facility] Disclaimer: The information contained in this section may have been updated after the patient was seen, as this information can be updated by other users. Medical History (Updated 04/22/25 @ 01:39 by Stoney Garza DO) Left elbow pain Fall Pinched nerve in neck Back pain Chest pain Tobacco use Atypical chest pain Abnormal EKG Abdominal pain Neck pain on right side Thoracic back pain Pleuritic chest pain Dyspnea Encounter for laboratory testing for COVID-19 virus Sinusitis COPD exacerbation Viral illness Wheeze Elbow pain Tachycardia COPD (chronic obstructive pulmonary disease) Rheumatoid arthritis Surgical History History of hysterectomy History of History of cardiac cath Family History Mother Cancer Father Cancer Social History Smoking Status: Current every day smoker tobacco type: cigarettes packs per day: 1 second hand exposure: No alcohol intake: never substance use type: denies use current occupational status: other Travel in the last 8 weeks?: None household members: other housing: other current occupational exposures/hazards: No caffeine: Yes Have you lived/traveled outside US in past 30 days?: No Contact w/someone who lives/traveled outside US past 30 days?: No Exposure to someone with infectious disease in past 14 days?: No Do you have a fever (greater than 100.4 F or 38 C)?: No Have you tested positive for COVID-19?: No Exposed to someone with COVID-19 in past 14 days?: No Do you have a sore throat?: No Do you have a cough?: No Do you have any weakness?: No Do you have any diarrhea?: No Are you experiencing any unusual bleeding?: No Do you have any muscle aches/pain?: No Do you have any abdominal pain?: No Are you experiencing loss of taste or smell?: No Other Medical History Have you received the Flu Vaccine for this season: No Have you received the Pneumonia Vaccine: No ROS Obtained: Yes Systems reviewed as appropriate & no additional complaints except as documented Physical Exam General General appearance: other (See MDM) Respiratory Respiratory exam: Present other (See MDM) Cardiovascular Cardiovascular exam: Present other (See MDM) Neurological Exam Neurological exam: Present other (See MDM) Medical Decision Making Medical Records Medical records reviewed: Yes I reviewed the patient's medical records. Screening: Per USPSTF and CDC recommendations, given the prevalence of disease in our region, it is our hospital?s policy to screen for HIV and viral Hepatitis for all patients aged 18 and over and those with ongoing risk factors. Julius Inquiry Pt receiving controlled substance: No Julius was queried for this patient: No Vital Signs: 04/21/25 21:04 04/21/25 22:50 04/22/25 01:44 Temperature 98.6 F 97.7 F Temperature Source Oral Tympanic Pulse Rate 95 H 74 Pulse Rate [Right] 103 H Respiratory Rate 16 13 15 Blood Pressure 129/110 H 123/64 Blood Pressure [Right Arm] 155/89 H Blood Pressure Mean [Right Arm] 111 Blood Pressure Source Automatic Cuff Blood Pressure Position Sitting 02 Sat by Pulse Oximetry 96 99 Oxygen Delivery Method Room Air Room Air Room Air Lab Data Lab Results 04/21/25 21:08: HCV Ab EHSAN w/Rflx PCR Qn Negative, HIV Ag/Ab Combo Qual Negative Orders (Tests/Meds): ED MEDICATIONS Discontinued Medications Generic Name Dose Route Start Last Admin Trade Name Freq PRN Reason Stop Dose Admin Ketorolac Tromethamine 15 mg 04/21/25 22:43 04/21/25 22:47 Ketorolac 15mg/Ml Vial IV 04/21/25 22:44 15 mg ONCE ONE Administration Lidocaine 1 each 04/21/25 22:48 04/21/25 22:59 Lidocaine 5% Transdermal Patch TD 04/21/25 22:49 1 each ONCE ONE Administration Methocarbamol 500 mg 04/21/25 22:49 04/21/25 23:00 Methocarbamol 500mg Tablet PO 04/21/25 22:50 500 mg ONCE ONE Administration Morphine Sulfate 4 mg 04/21/25 22:48 04/21/25 23:01 Morphine 4mg/Ml Syringe IV 04/21/25 22:49 Not Given ONCE ONE Ondansetron HCl 4 mg 04/21/25 22:49 04/21/25 23:00 Ondansetron 4mg/2ml Vial IV 04/21/25 22:50 4 mg ONCE ONE Administration ORDERS Category Date Time Status CT bony pelvis Stat Cat Scan 04/21/25 22:[address] lumbar spine wo con Stat Cat Scan 04/21/25 22:48 Completed HIV Combo Stat Lab 04/21/25 21:08 Completed Hepatitis C Ab Qual. W/ RFX Stat Lab 04/21/25 21:08 Completed Medical Decision Narrative: In summary, this is a 50-year-old female patient who is presenting to the emergency department today for evaluation of lumbosacral pain with no red flag back symptoms. The patient specifically denies a history of IV drug use. Her comorbidities do include a past medical history of rheumatoid arthritis as well as COPD. Additionally to this, the patient states that sometime within the last month she was diagnosed with a DVT in her lower extremity and she is now on anticoagulant therapy. On initial evaluation of the patient they were resting comfortably in no acute distress and nontoxic in appearance. They are hemodynamically stable, saturating well room air, and are neurologically intact. On physical examination the patient she is appropriately alert and interactive with a GCS of 15. Heart and lungs are clear to auscultation bilaterally. She has no abdominal tenderness to palpation. She has no lower extremity pitting edema or erythema. On physical examination of her lower back she does have midline lumbar spine tenderness as well as hypertonicity of the paraspinal musculature. She also has hypertonicity of the gluteal muscles adjacent to the sacrum with tenderness over the midline of the sacrum as well. She has normal sensation in all terminal nerve distributions of the bilateral lower extremities. She has 5 out of 5 strength in her bilateral lower extremities as well. Differential diagnosis includes lumbar spine fracture, sacral fracture, pelvic fracture, among others. I have a very low suspicion for spinal cord syndrome given the fact that she is not having any sensory deficits, urinary incontinence, urinary retention, or saddle anesthesia. Postvoid residual was obtained in the emergency department and showed no postvoid residual urine which also suggest against spinal cord syndromes. Given that she has no neurologic deficits and no history of IV drug use I feel that spinal epidural abscess is less likely. Additionally, severe pathology such as transverse myelitis is also unlikely in the setting of a normal neurologic exam. We did proceed with a CT scan of the lumbar spine and the bony pelvis. The scans were personally interpreted by me and demonstrate no bony malalignment or obvious large fractures. Official radiology read is in agreement and states that there is no acute abnormality. We did treat the patient while in the emergency department with 15 mg of Toradol, a lidocaine patch, 500 mg of Robaxin, and 4 mg of Zofran. She did decline IV morphine. On repeat reassessment the patient I have observed her walk to the bathroom without any difficulty or ataxia. She does feel subjectively improved but her pain has not completely resolved. My suspicion is that her pain is musculoskeletal in nature and is likely related to muscle spasms. I have prescribed tizanidine as this is covered at her pharmacy and I have also strongly advised her to call physical therapy so that they can work with her to improve her symptoms. I have given return precautions in the event that she experiences any red flag back symptoms. At this time all questions have been answered and all parties are agreeable with the decision to discharge home Critical Care Critical Care Time Critical Care Time: No
[2025-04-22 01:44] VITALS: BP 123/64; PULSE 74; RESP 15; TEMP 36.5; O2SAT 99
== END 2025-04-22 01:48 | disposition home or self-care (01) ==
PROVIDERS: Emergency Provider Student in an Organized Health Care Education/Training Program; PCP Family Medicine
DX: M62.838 Other muscle spasm (principal); E78.00 Pure hypercholesterolemia, unspecified; F17.210 Nicotine dependence, cigarettes, uncomplicated
CPT/HCPCS: 72131; 72192; 86803; 87389; 96374; 96375; 99284; 99285; J1885; J2405

== ENCOUNTER 2025-05-15 14:44 | Outpatient (CLI) | payer SELFPAY ==
[2025-05-15 20:28] LABS: Hematocrit 39.6 % (37.0-47.0); Hemoglobin 13.6 g/dL (12.2-16.2); Immature Granulocytes % 0.1 %; Mean Corpuscular HGB Conc 34.3 g/dL (31.8-35.4); Mean Corpuscular Hemoglobin 35.7 pg (27.0-31.2); Mean Corpuscular Volume 103.9 fl (81-99); Nucleated Red Blood Cells % 0 %; Platelet Count 342 K/mm3 (142-424); Red Blood Count 3.81 M/mm3 (4.20-5.40); Red Cell Distribution Width-SD 56.8 fL; White Blood Count 7.6 K/mm3 (4.8-10.8)
[2025-05-15 23:30] LABS: Alanine Aminotransferase 12 U/L (12-78); Albumin Level 3.9 g/dl (3.5-5.0); Albumin/Globulin Ratio 1.4 (1.1-1.8); Alkaline Phosphatase 117 U/L (38-126); Anion Gap 13.3 mEq/L (5-15); Aspartate Amino Transferase 21 U/L (14-36); Bilirubin,Total 0.6 mg/dl (0.2-1.3); Blood Urea Nitrogen 3 mg/dl (7-17); Calcium 8.7 mg/dl (8.4-10.2); Carbon Dioxide 30 mmol/L (22.0-30.0); Chloride 100 mmol/L (98-107); Cholesterol 55 mg/dl (140-200); Creatinine,Serum 0.70 mg/dl (0.52-1.04); Estimated Glomerular Filt Rate 89 ml/min (>60); GFR (African American) 108 ML/MIN (>60); Globulin 2.7 g/dL (1.3-3.2); Glucose 92 mg/dl (74-100); HDL Cholesterol 36 mg/dl (40-60); Potassium 4.3 mmoL/L (3.5-5.1); Sodium 139 mmol/L (136-145); Total Protein,Serum 6.6 g/dl (6.3-8.2); Triglycerides 67 mg/dl (30-150)
--- OUTSIDE RECORDS SUMMARY | 2025-05-16 01:23 | XMS_ITS | Patient Health Record ---
Author Organization [facility] Address [address] [place] [address] Care Team Providers Care Master Welder Name Role Phone TIMMY LICONA Primary Care Provider Timmy Licona MD Unavailable Unavailable Reason For [...] W/U Status Risk Notes Problem Esophageal reflux (931356432) Esophageal reflux (530.81) 2 Active confirmed Vinny-Bin Problem Muscle pain (55288757) Unspecified myalgia and myositis (729.1) 2 Active confirmed Vinny-Bin Plan Of Treatment No Information Insurance Providers Payer Name Payer Address Payer Phone Subscriber Number Group Number Insured Name Patient Relationship to Insured Coverage Start Date Coverage End Date Medicare Part [place] [phone] [id number] Teresa Tarango Self - patient is the insured Medical (General) History Surgical History Surgery Date(Month/Year) No Surgeries As Of Todays Date
--- OUTSIDE RECORDS SUMMARY | 2025-05-16 01:23 | XMS_ITS | Referral Summary ---
Author Organization [employer] ([place], [place], [place], [place]) Address [address] [place] [address] Care Team Providers Care Antenna Specialist Name Role Phone Unavailable Primary Care Provider [...] Date Everett rded Speak language other than South Korean at home Not on file 08/28/2023 Want [...]
--- OUTSIDE RECORDS SUMMARY | 2025-05-16 01:23 | XMS_ITS | Clinical Summary ---
Author Organization [employer] ([place], [place], [place], [place]) Address [address] [place] [address] Care Team Providers Care Denture Model Maker Name Role Phone Unavailable Primary Care Provider [...] Date Everett rded Speak language other than Guyanese at home Not on file 08/28/2023 Want [...]
--- OUTSIDE RECORDS SUMMARY | 2025-05-16 01:23 | XMS_ITS | Clinical Summary ---
Author Organization [facility] Address [address] [place] [id number] Care Team Providers Care Group Work Program Aide Name Role Phone Marcelle Padilla KAYA Primary Care Provider [phone] Allergies Active Allergy Reactions Criticality Noted Date [...] TEST 02/19/2021 FIT Testing (1 year) 02/19/2021 INFLUENZA VACCINE 03/10/2025 Pneumococcal Vaccine 0-49 Aged Out No longer eligible based on patient's age to complete this topic Insurance MEDICARE A & B [place]ID [place] Care Teams Group Work Program Aide Relationship Specialty Start Date End Date Marcelle Padilla APRN [id number] [id number] [id number] PCP - General Family Medicine 06/05/17
--- OUTSIDE RECORDS SUMMARY | 2025-05-16 01:23 | XMS_ITS | Clinical Summary ---
Author Organization [facility] Address [address] [place] [id number] Care Team Providers Care Bakery And Deli Sales Manager Name Role Phone Marcelle Padilla APRN Primary Care Provider [phone] Social History Tobacco Use Types Packs/Day Years [...] Date Last Done Comments [facility]-Depression Screening 1976 [facility]-Infant/Child/Adol SDOH Screenings 1976 [facility]- SDOH Screenings 02/19/1994 [facility]-Adult SDOH Screenings 02/19/1994 [facility]-Hepatitis B Vaccines (1 of 3 - 19+ 3-dose series) 02/19/1995 [facility]-Pap Smear 02/19/1997 [facility]-Cervical Cancer Screening 02/19/2006 [facility]-HPV/Cotest 02/19/2006 CT Colonography 02/19/2021 Colonoscopy 02/19/2021 FIT-DNA 02/19/2021 FIT 02/19/2021 FOBT 02/19/2021 Sigmoidoscopy 02/19/2021 [facility]-Colorectal Cancer Screening 02/19/2021 [facility]-DTaP,Tdap,and Td Vaccine s (2 - Td or Tdap) 03/01/2024 03/01/2014 [id number] Vaccine ( season) 2025 12/26/2020, 11/27/2020 [facility]-Influenza [...] topic Insurance MED[place]ID[place] MEDICARE Care Teams Bakery And Deli Sales Manager Relationship Specialty Start Date End Date Marcelle Padilla APRN [address] [place] [address] PCP - General 12/21/20
[2025-05-16 11:30] LABS: Vitamin B12 297 pg/mL (239-931)
== END 2025-05-15 23:59 ==
LOC: LAB.DROPOF 05-16 01:21
PROVIDERS: PCP Student in an Organized Health Care Education/Training Program; Visit Provider Student in an Organized Health Care Education/Training Program
DX: I73.9 Peripheral vascular disease, unspecified (principal); E78.5 Hyperlipidemia, unspecified
CPT/HCPCS: 80053; 80061; 82607; 85025

== ENCOUNTER 2025-06-26 14:18 | Outpatient (CLI) | payer MEDICARE, SELFPAY ==
--- NOTE | 2025-06-26 14:21 | XR_ITS ---
FINAL REPORT CLINICAL HISTORY: left hip pain FINDINGS: LEFT HIP 2 views of the left hip are obtained. There is no acute fracture or dislocation. Visualized joint spaces are normally aligned. There is no acute soft tissue abnormality. IMPRESSION: No acute bony abnormality. Reviewed, Interpreted and Dictated by Frankie Clark MD Transcribed by Concha Melo Authenticated and [facility]
--- NOTE | 2025-06-26 14:21 | XR_ITS ---
FINAL REPORT CLINICAL HISTORY: right hip pain FINDINGS: RIGHT HIP Two views of the right hip demonstrate no acute fracture or dislocation. The joint spaces appear normal. The visualized bony structures are well aligned. No soft tissue abnormality is seen. IMPRESSION: No acute bony abnormality. Reviewed, Interpreted and Dictated by Frankie Clark MD Transcribed by Concha Melo Authenticated and . [facility]
== END 2025-06-26 23:59 | disposition home or self-care (01) ==
LOC: RAD 14:19
PROVIDERS: PCP Student in an Organized Health Care Education/Training Program; Visit Provider Physician Assistant Surgical
DX: M25.552 Pain in left hip (principal); M25.551 Pain in right hip
CPT/HCPCS: 73502

== ENCOUNTER 2025-07-03 14:04 | Outpatient (CLI) | payer MEDICARE, SELFPAY ==
--- OUTSIDE RECORDS SUMMARY | 2025-06-23 15:53 | XMS_ITS | Encounter Summary ---
Author Organization [employer] ([place], [place], [place], [place], [place]) Address [address] [place] [address] Care Team Providers Care Electronics Assembler And Tester Name Role Phone [facility] Connection, Find-A-Doc Primary Care Provider Reason for Visit * Reason Comments Fall Patient reports she slipped going down 2 steps at 0800 this AM and now has intense pain in her right knee and right ankle; denies injury to head or LOC Encounter Details Date Type Department Care Team (Late st Contact Info) Description 06/23/2025 3:53 PM EST - 06/23/2025 5:12 PM EST Emergency [facility] Emergency Department [address] [place] [address] Abimbola Vega MD [address] [place], [place] [id number] Sprain of right ankle, unspecified ligament, initial encounter (Primary Dx); Acute pain of right knee Discharge Disposition: Home or Self Care Social History Tobacco Use Types Packs/Day Years Used Date Smoking Tobacco: Every Day Cigarettes Smokeless Tobacco: Never Alcohol Use Standard Drinks/Week Comments Never 0 (1 standard drink = 0.6 oz pur e alcohol) Family and Community Support Answer Tito e Recorded Help with Day to Day Activities Not on file 08/28/2023 Feeling Lonely or Isolated Not on file 08/28 Educational Attainment Answer Date Everett rded Speak language other than Serbian at home Not on file 08/28/2023 Want [...] on file Sexual Orientation Not on file documented as of this encounter Last Filed Vital Signs Vital Sign Reading Time Taken Comments Blood Pressure 133/64 06/23/2025 5:09 PM EST Pulse 89 06/23/2025 5:09 PM EST Temperature 36.7 C (98.1 F) 06/23/2025 3:57 PM EST Respiratory Rate 18 06/23/2025 5:09 PM EST Oxygen Saturation 93% 06/23/2025 5:09 PM EST Inhaled Oxygen Concentration - - Weight 64 kg (141 lb) 06/23/2025 3:57 PM EST Height 154.9 cm (5' 1 ) 06/23/2025 3:57 PM EST Body Mass Index 26.64 06/23/2025 3:57 PM EST documented in this encounter Discharge Instructions * Discharge Instructions* Ana Welch PA-C - 06/23/2025 4:51 PM EST Alternate Motrin and Tylenol for pain, alternate heat and ice, follow-up with Ortho, return to the emergency department new or worsening symptoms ING PRESS OPERATOR * Attachments The following attachments cannot be sent through Care Everywhere. * RICE Therapy for Routine Care of Injuries Afnn-ni-Miau (Serbian) documented in this encounter Medications at Time of Discharge albuterol 90 mcg/actuation inhaler 2 puffs every 4 (four) hours as needed. 06/14/2025 atorvastatin (LIPITOR) 80 MG tablet Take 1 tablet (80 mg total) by mouth daily. 05/15/2025 clopidogreL (PLAVIX) 75 mg tablet Take 1 tablet (75 mg total) by mouth daily. 05/15/2025 Repatha SureClick 140 mg/mL pen injector SMARTSI Milligram(s) SUB-Q Every 2 Weeks 06/14/2025 Trelegy Ellipta 100-62.5-25 mcg dsdv 1 puff daily. 06/14/2025 amitriptyline (ELAVIL) 50 MG tablet Take 50 mg by mouth nightly. buprenorphine-na loxone (SUBOXONE) 2-0.[address] under the [...] medication; regular dental checkups are encouraged. . gabapentin (NEURONTIN) 800 MG tablet Take 800 mg by mouth 3 (three) times daily. documented as of this encounter ED Notes * Ana Welch PA-C - 06/23/2025 4:47 PM EST Subjective Chief Complaint: Fall (Patient reports she slipped going down 2 steps at 0800 this AM and now has intense pain in her right knee and right ankle; denies injury to head or LOC) Patient is a 50-year-old female who presents to the emergency department with complaints of right knee and ankle pain. She states that she is going down the stairs slipped and twisted her knee and ankle. She reports right lateral knee pain and ankle pain. No numbness tingling or decreased range of motion. Patient states she has not been able to bear weight. She states she has not taken any medication for symptoms prior to arrival. Patient is currently on Suboxone. Patient denies any previous injuries or surgeries to the affected limb. Patient History Past Medical History: Diagnosis Date Back injury COPD (chronic obstructive pulmonary disease) (HCC) History of blood clots Hyperlipidemia Past Surgical History: Procedure Laterality Date CARDIAC CATHETERIZATION SECTION HYSTERECTOMY TONSILLECTOMY No family history on file. Social History Tobacco Use Smoking status: Every Day Current packs/day: 1.00 Types: Cigarettes Smokeless tobacco: Never Substance Use Topics Alcohol use: Never I reviewed the HPI, ROS and PFSH documentation recorded by others in the medical record and supplemented my note as needed. Review of Systems Review of Systems Musculoskeletal: Right knee and ankle pain All other systems reviewed and are negative. Physical Exam ED Triage Vitals Encounter Vitals Group BP 06/23/25 1559 (!) 140/85 Girls Systolic BP Percentile -- Girls Diastolic BP Percentile -- Boys Systolic BP Percentile -- Boys Diastolic BP Percentile -- Pulse 06/23/25 155 118 Resp 06/23/25 1557 22 Temp 06/23/25 155 98.1 ??F (36.7 ??C) Temp src 06/23/25 155 Temporal Art SpO2 06/23/251556 94 % Weight 06/23/251556 64 kg (141 lb) Height 06/23/251556 1.549 m (5' 1 ) Head Circumference -- Peak Flow -- Pain Score 06/23/25 155 Ten Pain Loc -- Pain Education -- Exclude from Growth Chart -- Physical Exam Vitals and nursing note reviewed. Constitutional: General: She is not in acute distress. Appearance: Normal appearance. She is not ill-appearing or toxic-appearing. HENT: Head: Normocephalic and atraumatic. Mouth/Throat: Mouth: Mucous membranes are moist. Cardiovascular: Pulses: Normal pulses. Pulmonary: Effort: Pulmonary effort is normal. Musculoskeletal: General: No swelling or deformity. Comments: Patient reports painful range of motion of right knee and ankle Skin: General: Skin is warm and dry. Capillary Refill: Capillary refill takes less than 2 seconds. Findings: No bruising or erythema. Neurological: General: No focal deficit present. Mental Status: She is alert and oriented to person, place, and time. Psychiatric: Mood and Affect: Mood normal. Behavior: Behavior normal. Neurological Exam Mental Status Alert. Oriented to person, place, and time. Ortho Exam ED Course & MDM Medications ketorolac (TORADOL) injection 30 mg (30 mg intraMUSCULAR Given 06/23/25 1620) Results for orders placed or performed during the hospital encounter of 01/25/23 CBC with Auto Diff Result Value Ref Range WBC 7.0 4.8 - 10.8 K/??L RBC 4.35 3.50 - 5.20 M/??L Hemoglobin 14.0 11.7 - 15.8 GM/DL Hematocrit 41.6 35.0 - 47.0 % MCV 96 81 - 101 fL MCH 32.2 27.0 - 34.0 pg MCHC 33.7 32.0 - 36.0 GM/DL RDW 13.6 11.5 - 14.5 % Platelets 443 (H) 150 - 400 K/CU MM MPV 8.8 (L) 9.4 - 12.4 fL Nucleated Red Blood Cell 0.0 0 - 0.2 % % Neutros 43 37 - 80 % % Lymphs 46 10 - 50 % % Monos 6 5 - 13 % % Eos 4 0 - 7 % % Baso 1 0 - 3 % NRBC Absolute 0.00 0 - 0.12 K/ul # Neutros 2.99 2.00 - 6.90 K/??L # Lymphs 3.23 0.60 - 3.40 K/??L # Monos 0.44 0.00 - 0.90 K/??L # Eos 0.30 0.00 - 0.70 K/??L # Baso 0.05 0.00 - 0.20 K/??L % Imm Grans 0.00 0.00 - 0.00 % # IG 0.00 0.00 - 0.00 K/uL Comprehensive metabolic panel Result Value Ref Range Sodium 142 136 - 145 meq/L Potassium 3.0 (L) 3.5 - 5.1 meq/L Chloride 104 98 - 107 meq/L CO2 31 21 - 32 meq/L Calcium 8.6 8.5 - 10.1 mg/dL Glucose 85 70 - 99 mg/dL BUN 5 (L) 7 - 18 mg/dL Creatinine 0.85 0.55 - 1.10 mg/dL BUN/Creatinine 6 Albumin 3.7 3.4 - 5.0 g/dL Alkaline Phosphatase 114 46 - 116 U/L ALT 15 12 - 78 U/L AST 12 (L) 15 - 37 U/L Total Bilirubin 0.1 (L) 0.2 - 1.0 mg/dL Protein, Total 8.0 6.4 - 8.2 gm/dL Anion Gap 10 A/G Ratio 0.9 Globulin 4.3 g/dL Osmolality Calc 279.6 eGFR (mL/min/1.73m2) >60 >=60 mL/min/1.73m2 Lipase Result Value Ref Range Lipase 23 16 - 77 U/L Urinalysis, Reflex Microscopic and Culture If Indicated Result Value Ref Range Color, UA Straw Clarity, UA Clear Specific [place], UA 1.010 1.002 - 1.030 pH, UA 6.5 5.0 - 9.0 Leukocytes, UA Negative Negative Nitrite, UA Negative Negative Protein, UA Negative Negative Glucose, UA Negative Negative Ketones, UA Negative Negative Bilirubin, UA Negative Negative Blood, UA 1+ (A) Negative Urobilinogen, UA 0.2 mg/dL Normal Specimen Source Urine, Clean Catch Urinalysis Microscopic Only Result Value Ref Range WBC, UA 0-5 None Seen, Occasional , 0-5 /HPF RBC, UA 0-5 (A) None Seen, Rare /HPF SQUAMOUS EPITHELIAL 0-5 (A) None Seen, Rare /HPF XR ankle 3 views right Preliminary Result No acute bony abnormality. RIGHT ANKLE HISTORY: Acute right ankle pain status post fall. COMPARISON: None. FINDINGS: A three view exam demonstrates no acute fracture or dislocation. The ankle mortise is intact. The joint spaces appear unremarkable. There is mild soft tissue swelling around the ankle. IMPRESSION: No acute bony abnormality. Images reviewed, interpreted, and dictated by Dr. Mian Garg. Transcribed by Batool Salvador XR KNEE 4 VIEWS RIGHT Non-Weight Bearing Preliminary Result No acute bony abnormality. RIGHT ANKLE HISTORY: Acute right ankle pain status post fall. COMPARISON: None. FINDINGS: A three view exam demonstrates no acute fracture or dislocation. The ankle mortise is intact. The joint spaces appear unremarkable. There is mild soft tissue swelling around the ankle. IMPRESSION: No acute bony abnormality. Images reviewed, interpreted, and dictated by Dr. Mian Garg. Transcribed by Batool Salvador ED Course as of 06/23/25 1651 ThuJun 23, 2025 1636 XR knee and ankle: No obvious displaced fracture or dislocation. Images personally interpreted[HD] 1637 Dr. Vega: I saw the patient [id number]. I performed a substantive portion of the MDM. [HD] ED Course User Index [HD] Abimbola Vega MD Procedures Medical Decision Making Patient's vital signs are stable, x-ray viewed by EDMD no acute fracture was seen. Patient given crutches Jorge wrap advised to follow-up with orthopedics. Amount and/or Complexity of Data Reviewed Radiology: ordered. Risk Prescription drug management. Assessment & Plan Clinical Impression Diagnosis Comment Added By Time Added Sprain of right ankle, unspecified ligament, initial encounter Ana Welch PA-C 06/23/2025 4:51 PM Acute pain of right knee Ana Welch PA-C 06/23/2025 4:51 PM Disposition Discharge [1] - 06/23/2025 4:50 PM New Prescriptions No medications on file Contact information for follow-up Ramo Lala MD Specialty: Orthopedic Surgery [address] [facility] [address] Next Steps: Follow up [facility] Emergency Department Specialty: Emergency Medicine [address] [facility] [address] Next Steps: Follow up Instructions: As needed, If symptoms worsen ING PRESS OPERATOR ING PRESS OPERATOR documented in this encounter Plan of Treatment Not on file documented as of this encounter Procedures Procedure Name Priority Date/Time Associated Diagnosis Comments XR KNEE 4 VIEWS RIGHT STAT 06/23/2025 4:08 PM EST XR ANKLE 3 VIEWS RIGHT STAT 06/23/2025 4:08 PM EST documented in this encounter Results * XR KNEE 4 VIEWS RIGHT Non-Weight Bearing (06/23/2025 4:08 PM EST) Anatomical Region Laterality Modality Knee X-Ray 06/23/2025 4:47 PM EST Impressions 06/23/2025 5:18 PM EST No acute bony abnormality. RIGHT ANKLE HISTORY: Acute right ankle pain status post fall. COMPARISON: None. FINDINGS: A three view exam demonstrates no acute fracture or dislocation. The ankle mortise is intact. The joint spaces appear unremarkable. There is mild soft tissue swelling around the ankle. IMPRESSION: No acute bony abnormality. Images reviewed, interpreted, and dictated by Dr. Mian Garg. Transcribed by Batool Salvador Narrative 06/23/2025 5:18 PM EST RIGHT KNEE HISTORY: Acute right knee pain status post fall. COMPARISON: None. FINDINGS: A three view exam demonstrates no acute fracture. There is no joint effusion. There is normal alignment. The joint spaces appear unremarkable. No soft tissue abnormality is seen. Procedure Note Mian Garg MD - 06/23/2025 RIGHT KNEE HISTORY: Acute right knee pain status post fall. COMPARISON: None. FINDINGS: A three view exam demonstrates no acute fracture. There is no joint effusion. There is normal alignment. The joint spaces appear unremarkable. No soft tissue abnormality is seen. IMPRESSION: No acute bony abnormality. RIGHT ANKLE HISTORY: Acute right ankle pain status post fall. COMPARISON: None. FINDINGS: A three view exam demonstrates no acute fracture or dislocation. The ankle mortise is intact. The joint spaces appear unremarkable. There is mild soft tissue swelling around the ankle. IMPRESSION: No acute bony abnormality. Images reviewed, interpreted, and dictated by Dr. Mian Garg. Transcribed by Batool Salvador Ana Welch PA-C [facility]MM[facility] DIAGNOSTIC IMAGING OR DERABLES Final Result * XR ankle 3 views right (06/23/2025 4:08 PM EST) Anatomical Region Laterality Modality Leg, Ankle, Foot X-Ray 06/23/2025 4:47 PM EST Impressions 06/23/2025 5:18 PM EST No acute bony abnormality. RIGHT ANKLE HISTORY: Acute right ankle pain status post fall. COMPARISON: None. FINDINGS: A three view exam demonstrates no acute fracture or dislocation. The ankle mortise is intact. The joint spaces appear unremarkable. There is mild soft tissue swelling around the ankle. IMPRESSION: No acute bony abnormality. Images reviewed, interpreted, and dictated by Dr. Mian Garg. Transcribed by Batool Salvador Narrative 06/23/2025 5:18 PM EST RIGHT KNEE HISTORY: Acute right knee pain status post fall. COMPARISON: None. FINDINGS: A three view exam demonstrates no acute fracture. There is no joint effusion. There is normal alignment. The joint spaces appear unremarkable. No soft tissue abnormality is seen. Procedure Note Mian Garg MD - 06/23/2025 RIGHT KNEE HISTORY: Acute right knee pain status post fall. COMPARISON: None. FINDINGS: A three view exam demonstrates no acute fracture. There is no joint effusion. There is normal alignment. The joint spaces appear unremarkable. No soft tissue abnormality is seen. IMPRESSION: No acute bony abnormality. RIGHT ANKLE HISTORY: Acute right ankle pain status post fall. COMPARISON: None. FINDINGS: A three view exam demonstrates no acute fracture or dislocation. The ankle mortise is intact. The joint spaces appear unremarkable. There is mild soft tissue swelling around the ankle. IMPRESSION: No acute bony abnormality. Images reviewed, interpreted, and dictated by Dr. Mian Garg. Transcribed by Batool Salvador Ana Welch PA-C [facility] DIAGNOST[facility] IMAGING OR DERABLES Final Result documented in this encounter Visit Diagnoses Diagnosis Sprain of right ankle, unspecified ligament, initial encounter- Primary Acute pain of right knee documented in this encounter Administered Medications Inactive Administered Medications - up to 3 most recent administrations Medication Order MAR Action Action Date Dose Rate Site ketorolac (TORADOL) injection 30 mg 30 mg Once, intraMUSCULAR, On Thu06/23/25 at 1605, For 1 dose Given 06/23/2025 4:20 PM EST 30 mg Left Deltoid documented in this encounter Active and Recently Administered Medications Times are shown in EST. Scheduled Medication Order 06/21/2025 06/22/2025 06/23/2025 ketorolac (TORADOL) injection 30 mg (COMPLETED) 30 mg Once, intraMUSCULAR, On Thu06/23/25 at 1605, For 1 dose 1620 (Given - Provid er: Marilia Weiss RN) documented in this encounter Care Teams Electronics Assembler And Tester Relationship Specialty Start Date End Date [facility] Annemarie, Find-A-Doc [facility] [place] [address] PCP - General 06/23/25 documented as of this encounter
--- NOTE | 2025-07-03 14:07 | XR_ITS ---
FINAL REPORT CLINICAL HISTORY: right ankle pain FINDINGS: AP, oblique, and lateral views of the right ankle were obtained. There is no prior exam for comparison. There is no fracture or dislocation. The ankle mortise is intact. Soft tissues are unremarkable. IMPRESSION: No acute osseous abnormality of the right ankle. Reviewed, Interpreted and Dictated by Bing Rocha MD Transcribed by Jaquelin Hayden Authenticated and [facility]
--- NOTE | 2025-07-03 14:07 | XR_ITS ---
FINAL REPORT CLINICAL HISTORY: right knee pain..fall last week FINDINGS: AP, lateral and oblique views of the right knee were obtained. There is no prior exam for comparison. There is no acute osseous abnormality of the right knee. The joint space is preserved. The soft tissues are normal. There is no joint effusion. IMPRESSION: No acute osseous abnormality of the right knee. Reviewed, Interpreted and Dictated by Bing Rocha MD Transcribed by Jaquelin Hayden Authenticated and [facility]
--- OUTSIDE RECORDS SUMMARY | 2025-07-03 14:19 | XMS_ITS | Clinical Summary ---
Author Organization [facility] Address [address] [place] [address] Care Team Providers Care Welding Pantograph Operator Name Role Phone Marcelle Padilla KAYA Primary Care Provider [phone] Allergies Active Allergy Reactions Criticality Noted Date [...] topic Insurance MEDICARE A & B MEDICAID [place] Care Teams Welding Pantograph Operator Relationship Specialty Start Date End Date Marcelle Padilla APRN [address] [place] [id number] PCP - General Family Medicine 06/05/17
--- OUTSIDE RECORDS SUMMARY | 2025-07-03 14:19 | XMS_ITS | Encounter Summary ---
Author Organization [employer] ([place], [place], [place], [place], [place]) Address [address] [place] [address] Care Team Providers Care Talent Buyer Name Role Phone [facility] Annemarie Find-A-Doc Primary Care Provider Encounter Details Date Type Department Care Team (Latest Contact Info) Description 06/23/2025 Travel Social History Tobacco Use Types Packs/Day Years [...] Date Everett rded Speak language other than Mongolian at home Not on file 08/28/2023 Want [...] on file documented as of this encounter Plan of Treatment Not on file documented as of this encounter Visit Diagnoses Not on filedocumented in this encounter Care Teams Talent Buyer Relationship Specialty Start Date End Date [facility] Annemarie Find-A-Doc [facility] [place] [address] PCP - General 06/23/25 documented as of this encounter
--- OUTSIDE RECORDS SUMMARY | 2025-07-03 14:19 | XMS_ITS | Clinical Summary ---
Author Organization [facility] Address [address] [place] [address] Care Team Providers Care Echo Technologist Name Role Phone Marcelle Padilla APRN Primary Care Provider [phone] Social History Tobacco Use Types Packs/Day Years [...] (2 - Td or Tdap) 03/01/2024 03/01/2014 [id number] Vaccine ( season) 2025 12/26/2020, 11/27/2020 UKY-Influenza [...] topic Insurance [place]ICAID-[place] MEDICARE Care Teams Echo Technologist Relationship Specialty Start Date End Date Marcelle Padilla APRN [address] [place] [address] PCP - General 12/21/20
--- OUTSIDE RECORDS SUMMARY | 2025-07-03 14:20 | XMS_ITS | Referral Summary ---
Author Organization [employer] ([place], [place], [place], [place], [place]) Address [address] [place] [address] Care Team Providers Care Silk Opener Name Role Phone [facility] Connection, Find-A-Doc Primary Care Provider Encounters Date Type Department Care Team Description 06/23/2025 Travel 06/23/2025 3:53 PM EST - 06/23/2025 5:12 PM EST Emergency [facility] Emergency Department [address] [place] [address] Abimbola Vega MD Sprain of right ankle, unspecified ligament, initial encounter (Primary Dx); Acute pain of right knee Discharge Disposition: Home or Self Care from Last 3 Months Allergies Active Allergy Reactions Criticality Noted Date [...] Take 50 mg by mouth nightly. Active albuterol 90 mcg/actuation inhaler 2 puffs every 4 (four) hours as needed. Active atorvastatin (LIPITOR) 80 MG tablet Take 1 tablet (80 mg total) by mouth daily. Active clopidogreL (PLAVIX) 75 mg tablet Take 1 tablet (75 mg total) by mouth daily. Active Repatha SureClick 140 mg/mL pen injector SMARTSI Milligram(s) SUB-Q Every 2 Weeks Active Trelegy Ellipta 100-62.5-25 mcg dsdv 1 puff daily. Active Social History Tobacco Use Types Packs/Day [...] Date Everett rded Speak language other than East Timorese at home Not on file 08/28/2023 Want [...] Mass Index 26.64 06/23/2025 3:57 PM EST Plan of Treatment Not on file Procedures Procedure Name Priority Date/Time Associated Diagnosis Comments XR KNEE 4 VIEWS RIGHT STAT 06/23/2025 4:08 PM EST XR ANKLE 3 VIEWS RIGHT STAT 06/23/2025 4:08 PM EST from Last 3 Months Results * XR KNEE 4 VIEWS RIGHT [...] Dr. Mian Garg. Transcribed by Batool Salvador us Ana Welch PA-C [facility] OR [...] Mian Garg. Transcribed by Batool Salvador Ana [facility]NO[facility] IMAGING OR DERABLES Final Result from Last 3 Months Insurance MEDICARE PART A B Care Teams Silk Opener Relationship Specialty Start Date End Date [facility] Connection, Find-A-Doc [facility] [place] [address] PCP - General 06/23/25
--- OUTSIDE RECORDS SUMMARY | 2025-07-03 14:20 | XMS_ITS | Clinical Summary ---
Author Organization [employer] ([place], [place], [place], [place], [place]) Address [address] [place] [address] Care Team Providers Care [place] L[place] Name Role Phone [facility] Connection, Find-A-Doc Primary Care Provider Allergies Active Allergy Reactions Criticality Noted Date [...] 100-62.5-25 mcg dsdv 1 puff daily. Active Encounters Date Type Department Care Team Description 06/23/2025 3:53 PM EST - 06/23/2025 5:12 PM EST Emergency [facility] Emergency Department [address] [place] [address] Abimbola Vega MD Sprain of right ankle, unspecified ligament, initial encounter (Primary Dx); Acute pain of right knee Discharge Disposition: Home or Self Care 06/23/2025 Travel from Last 3 Months Social History Tobacco Use Types Packs/Day Years [...] on file 08/28 Educational Attainment Answer Date Veerett rded Speak language other than Jamaican at home Not on file 08/28/2023 Want [...] 06/23/2025 3:57 PM EST Plan of Treatment Health Maintenance [...] season) 2025, 11/27/2020 Influenza Vaccine (#1) 2025 Medicare Initial AWV [id number] 06/10/2025 Procedures Procedure Name Priority Date/Time Associated Diagnosis [...] Transcribed by Batool Salvador Ana Welch PA-C IMG DIAGNOSTIC IMAGING OR DERABLES Final Result from Last 3 Months Insurance MEDICARE PART A B Care Teams [place] Relationship Specialty Start Date End Date [facility] Connection, Find-A-Doc [facility] Annemarie Find-a-Doc [place], [place] [id number] PCP - General 06/23/25
== END 2025-07-03 23:59 | disposition home or self-care (01) ==
LOC: RAD 14:07
PROVIDERS: PCP Student in an Organized Health Care Education/Training Program; Visit Provider Physician Assistant Surgical
DX: M25.561 Pain in right knee (principal); M25.571 Pain in right ankle and joints of right foot
CPT/HCPCS: 73562; 73610

== ENCOUNTER 2025-07-26 11:59 | Outpatient (CLI) | payer MEDICARE, SELFPAY ==
--- OUTSIDE RECORDS SUMMARY | 2025-06-23 15:53 | XMS_ITS | Encounter Summary ---
Author Organization [employer] ([place], [place], [place], [place], [place]) Address [address] [place] [address] Care Team Providers Care Intake Manager Name Role Phone [facility] Connection, Find-A-Doc Primary Care Provider Reason [...] EST - 06/23/2025 5:12 PM EST Emergency [facility] Emergency Department [address] [place] [address] Abimbola Vega MD [address] [place], [place] [id number] Sprain of right ankle, unspecified ligament, initial [...] the emergency department new or worsening symptoms ESSORI TEACHER * Attachments The following attachments cannot be sent through Care Everywhere. * RICE Therapy for Routine Care of Injuries Dcga-vi-Azym (Turkish) documented in this encounter Medications at Time [...] Color, UA Straw Clarity, UA Clear Specific [place], UA 1.010 1.002 - 1.030 pH, UA [...] 1637 Dr. Vega: I saw the patient [id number]. I performed a substantive portion of the [...] Lala MD Specialty: Orthopedic Surgery [address] [facility] [address] Next Steps: Follow up [facility] Emergency Department Specialty: Emergency Medicine [address] [facility] [address] Next Steps: Follow up Instructions: As needed, If symptoms worsen ESSORI TEACHER ESSORI TEACHER documented in this encounter Plan of Treatment [...] RN) documented in this encounter Care Teams Intake Manager Relationship Specialty Start Date End Date [facility] Annemarie, Find-A-Doc [facility] [place]em[place] [address] PCP - General 06/23/25 documented as of this encounter
--- NOTE | 2025-07-26 13:00 | CT_ITS ---
FINAL REPORT TECHNIQUE: Post contrast axial imaging of the aorta and bilateral lower extremity was obtained and reviewed.This study was performed with techniques to keep radiation doses as low as reasonably achievable (ALARA). Individualized dose reduction techniques using automated exposure control or adjustment of mA and/or kV according to the patient's size were employed. CLINICAL HISTORY: abnl radha,claudication,pad COMPARISON: None FINDINGS: VASCULAR: There is no evidence of aortic aneurysm or aortic dissection. 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 There is reconstitution of the right common iliac artery proximal to the bifurcation. There appears to be a string sign in the left common iliac artery. The mesenteric arteries are patent without stenosis. The bilateral renal arteries are patent without stenosis. The bilateral external and internal iliac arteries are patent without stenosis. Right: The right common femoral artery, deep femoral artery and superficial femoral artery are all patent, without stenosis. There is no stenosis of the popliteal artery. The anterior and posterior tibial and peroneal arteries are patent to the lower leg. Delayed imaging was not obtained. There is limited evaluation of the arterial system of the foot. Left: The left common femoral artery, deep femoral artery and superficial femoral artery are all patent, without stenosis. There is no stenosis of the popliteal artery. The anterior and posterior tibial and peroneal arteries are patent to the lower leg. Delayed imaging was not obtained. There is limited evaluation of the arterial system of the foot. Review of the remaining abdomen and pelvis demonstrates no evidence of mass or adenopathy. No acute GI tract abnormality. There is no fluid collection or acute inflammatory process. 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 String sign within the left common iliac artery. The right common iliac artery is patent. Patent lower extremity arterial system without significant stenosis or occlusion to the level of the lower leg as above. Authenticated and ERN
[2025-07-26] MEDS: IOPAMIDOL-370 (76%);100ML BOTTLE 100 ML IV (13:06)
[2025-07-26] MEDS: 0.9 % SODIUM CHLORIDE 50 ML VIAL IV ×2 (13:06)
[2025-07-26] MEDS: SODIUM CHLORIDE 0.9% 10ML SYR (RAD ONLY) 10 ML IV (13:06)
[2025-07-26] MEDS: IOPAMIDOL-370 (76%);100ML BOTTLE 20 ML IV (13:07)
--- OUTSIDE RECORDS SUMMARY | 2025-07-26 13:16 | XMS_ITS | Referral Summary ---
Author Organization [employer] ([place], [place], [place], [place], [place]) Address [address] [place] [address] Care Team Providers Care Laboratory Supervisor Name Role Phone [facility] Connection, Find-A-Doc Primary Care Provider Encounters Date Type Department Care Team Description 06/23/2025 Travel 06/23/2025 3:53 PM EST - 06/23/2025 5:12 PM EST Emergency [facility] Emergency Department [address] [place] [address] Abimbola Vega MD Sprain of [...] Date Everett rded Speak language other than Belizean at home Not on file 08/28/2023 Want [...] Insurance MEDICARE PART A B Care Teams Laboratory Supervisor Relationship Specialty Start Date End Date [facility] Connection, Find-A-Doc [facility] [place] [address] PCP - General 06/23/25
--- OUTSIDE RECORDS SUMMARY | 2025-07-26 13:16 | XMS_ITS | Clinical Summary ---
Author Organization [employer] ([place], [place], [place], [place], [place]) Address [address] [place] [address] Care Team Providers Care Automobile Contract Clerk Name Role Phone [facility] Connection, Find-A-Doc Primary Care Provider Allergies [...] EST - 06/23/2025 5:12 PM EST Emergency [facility] Emergency Department [address] [place] [address] Abimbola Vega MD Sprain of [...] Date Everett rded Speak language other than Citizen Of [place] at home Not on file 08/28/2023 Want [...] Insurance MEDICARE PART A B Care Teams Automobile Contract Clerk Relationship Specialty Start Date End Date [facility] Connection, Find-A-Doc [facility] Annemarie Find-a-Doc [place], [place] [id number] PCP - General 06/23/25
--- OUTSIDE RECORDS SUMMARY | 2025-07-26 13:16 | XMS_ITS | Encounter Summary ---
Author Organization [employer] ([place], [place], [place], [place], [place]) Address [address] [place] [address] Care Team Providers Care Construction Or Leak Gang Laborer Name Role Phone [facility] Annemarie Find-A-Doc Primary Care Provider Encounter Details [...] on filedocumented in this encounter Care Teams Construction Or Leak Gang Laborer Relationship Specialty Start Date End Date [facility] Annemarie Find-A-Doc [facility] [place] [address] PCP - General 06/23/25 documented as of this encounter
--- OUTSIDE RECORDS SUMMARY | 2025-07-26 13:16 | XMS_ITS | Clinical Summary ---
Author Organization [facility] Address [address] [place] [address] Care Team Providers Care Cabinet Assembler Name Role Phone Marcelle Paidlla APRN Primary Care Provider [phone] Social History Tobacco Use Types Packs/Day Years [...] (2 - Td or Tdap) 03/01/2024 03/01/2014 [id number] Vaccine (3 - season) 2025 12/26/2020, 11/27/2020 [facility]-Influenza Vaccine (#1) 04/10/202506/20, 09/01/2019, 04/23/2018 [facility]-Zoster Vaccines (1 of 2) 02/19/2026 HPV Vaccines (No Doses Required) Completed [facility]-HIB Vaccines Aged Out No longer e [...] patient's age to complete this topic Insurance MEDICAID-[place] MEDICARE Care Teams Cabinet Assembler Relationship Specialty Start Date End Date Marcelle Padilla APRN [address] [place] [address] PCP - General 12/21/20
--- OUTSIDE RECORDS SUMMARY | 2025-07-26 13:16 | XMS_ITS | Clinical Summary ---
Author Organization [facility] Address [address] [place] [id number] Care Team Providers Care Renal Social Worker Name Role Phone Marcelle Padilla KAYA Primary Care Provider [phone] Allergies Active Allergy Reactions Criticality Noted Date [...] topic Insurance MEDICARE A & B [place]ICAID [place] Care Teams Renal Social Worker Relationship Specialty Start Date End Date Marcelle Padilla APRN [address] [id number] [id number] PCP - General Family Medicine 06/05/17
--- OUTSIDE RECORDS SUMMARY | 2025-07-26 13:17 | XMS_ITS | Patient Health Record ---
Author Organization [facility] [place] Address [address] [address] Care Team Providers Care Administrative Supervisor Name Role Phone TIMMY LICONA Primary Care [...] W/U Status Risk Notes Problem Esophageal reflux (279948393) Esophageal reflux (530.81) 2 Active confirmed Vinny-Bin Problem Muscle pain (91938707) Unspecified myalgia and myositis (729.1) 2 Active confirmed Vinny-Bin Plan Of Treatment No Information Insurance Providers Payer Name Payer Address Payer Phone Subscriber Number Group Number Insured Name Patient Relationship to Insured Coverage Start Date Coverage End Date Medicare Part [place] [phone] [id number] Teresa Tarango Self - patient is the insured Medical (General) History Surgical History Surgery Date(Month/Year) No Surgeries As Of Todays Date
== END 2025-07-26 23:59 | disposition home or self-care (01) ==
LOC: RAD 12:00
PROVIDERS: PCP Student in an Organized Health Care Education/Training Program; Visit Provider Physician Assistant
DX: I70.0 Atherosclerosis of aorta (principal); I70.213 Atherosclerosis of native arteries of extremities with intermittent claudication, bilateral legs; R93.89 Abnormal findings on diagnostic imaging of other specified body structures
CPT/HCPCS: 75635; Q9967